=== PATIENT | female | born 1940 | race Caucasian/White ===

== ENCOUNTER 2020-11-21 12:01 | Observation (INO) | payer MEDICARE ==
--- NOTE | 2020-11-21 12:37 | ED ---
General Adult HPI - General Chief complaint: Altered Mental Status Stated complaint: palpitations, confusion Time Seen by Provider: 11/21/20 12:15 Source: patient, family Mode of arrival: wheelchair Limitations: altered mental status - History of Present Illness Initial comments: Dictation was produced using [employer] dictation software. please excuse any grammatical, word or spelling errors. This patient was cared for during a federal and state declared state of emergency secondary to Covid 19 Chief Complaint: 80-year-old female brought to the emergency department by daughter for altered mental status and elevated blood pressure and tachycardia. History of Present Illness: An 80-year-old female she is accompanied by her daughter. Patient has been showing signs of mental status changes over the last 3 days that began acutely. Patient has no history of dementia. Patient does not have any significant comorbidities she does not take any daily medications except for eyedrops for cataracts. Daughter provided history present illness noted that patient has been seemingly more forgetful and not as sharp mentally. She took patient's blood pressure at home with concerns of hypertension and tachycardia. Her heart rate was as high as 117 and her blood pressure was systolics 160s. Patient does not have any history of hypertension or tachycardia. Patient notices that she feels rather unwell. She denies weakness however daughter reports that she's been seemingly weak. Patient has no pain complaints. She has no other complaints at this time. The ROS documented in this emergency department record has been reviewed and confirmed by me. Those systems with pertinent positive or negative responses have been documented in the HPI. All other systems are other negative and/or noncontributory. PHYSICAL EXAM: General Impression: Alert and oriented x3, not in acute distress HEENT: Normocephalic atraumatic, extra-ocular movements intact, pupils equal and reactive to light bilaterally, mucous membranes moist. Cardiovascular: Heart regular rate and rhythm Chest: Able to complete full sentences, no retractions, no tachypnea Abdomen: abdomen soft, non-tender, non-distended, no organomegaly Musculoskeletal: Pulses present and equal in all extremities, no peripheral edema Motor: no focal deficits noted Neurological: CN II-XII grossly intact, no focal motor or sensory deficits noted, NIH of 0, alert and oriented 4 out of 4, no extremity drift Skin: Intact with no visualized rashes Psych: Normal affect and mood ED course: 80 y old female presents with altered mental status all signs upon arrival shows heart rate of 110, so vital signs within acceptable limits. Patient has no focal neurologic deficits on physical examination. NIH is 0. Laboratory evaluation obtained. CBC, coag panel, metabolic panel is unremarkable. Urinalysis does not shows 6 white blood cells. Troponin is elevated 0.052. Patient reevaluated at bedside at 3:10 PM she is found to be in stable medical condition. She is comfortable appearing. This point is unclear what is causing patient's elevated troponin. She does not have any signs of acute kidney injury. She has no objective findings of infection. She'll be admitted for serial troponins cartilage consultation. Case discussed with Dr. Huynh who is willing to accept patients care behalf of [facility]. EKG interpretation: Ventricular rate 93, sinus rhythm,. 156, QRS 84, QTC 402. No NH prolongation, no QTC prolongation, no ST or T-wave changes noted. No old EKG for comparison. Overall, this EKG is unremarkable - Related Data Home Medications Medication Instructions Recorded Confirmed Cholecalciferol [Vitamin D3 (25 50 mcg PO DAILY 11/21/20 11/21/20 Mcg = 1000 Iu)] Ketorolac 0.5% Ophth Soln [Acular] 1 drop LEFT EYE BID 11/21/20 11/21/20 Loteprednol Etabonate [Inveltys] 1 drop LEFT EYE BID 11/21/20 11/21/20 Propylene Glycol/Peg 400/Pf 1 drop BOTH EYES BID PRN 11/21/20 11/21/20 [Systane 0.3-0.4% Eye Drops] Vitamin B Complex 1 cap PO DAILY 11/21/20 11/21/20 hydrOXYzine HCL [Atarax] 25 mg PO BID PRN 11/21/20 11/21/20 Allergies Allergy/AdvReac Type Severity Reaction Status Date / Time No Known Allergies Allergy Verified 11/21/20 13:32 Review of Systems ROS Statement: Those systems with pertinent positive or pertinent negative responses have been documented in the HPI. ROS Other: All systems not noted in ROS Statement are negative. Past Medical History Past Medical History: No Reported History History of Any Multi-Drug Resistant Organisms: None Reported Past Surgical History: Hysterectomy, Orthopedic Surgery, Tubal Ligation Past Psychological History: No Psychological Hx Reported Smoking Status: Former smoker Past Alcohol Use History: None Reported Past Drug Use History: None Reported General Exam Limitations: altered mental status Course Vital Signs 11/21/20 11/21/20 12:06 13:51 Temperature 98.2 F Pulse Rate 110 H 83 Respiratory 20 16 Rate Blood Pressure 158/87 143/92 O2 Sat by Pulse 96 93 L Oximetry Medical Decision Making - Lab Data Result diagrams: 11/21/20 12:35 11/21/20 12:35 Lab Results 11/21/20 11/21/20 11/21/20 Range/Units 12:35 12:35 12:35 WBC 9.2 (3.8-10.6) k/uL RBC 5.77 H (3.80-5.40) m/uL Hgb 17.9 H (11.4-16.0) gm/dL Hct 54.1 H (34.0-46.0) % MCV 93.7 (80.0-100.0) fL MCH 31.1 (25.0-35.0) pg MCHC 33.2 (31.0-37.0) g/dL RDW 13.7 (11.5-15.5) % Plt Count 244 (150-450) k/uL MPV 7.6 Neutrophils % 83 % Lymphocytes % 10 % Monocytes % 5 % Eosinophils % 1 % Basophils % 0 % Neutrophils # 7.6 (1.3-7.7) k/uL Lymphocytes # 0.9 L (1.0-4.8) k/uL Monocytes # 0.5 (0-1.0) k/uL Eosinophils # 0.0 (0-0.7) k/uL Basophils # 0.0 (0-0.2) k/uL PT 10.5 (9.0-12.0) sec INR 1.0 (<1.2) APTT 22.1 (22.0-30.0) sec Sodium 139 (137-145) mmol/L Potassium 3.8 (3.5-5.1) mmol/L Chloride 108 H (98-107) mmol/L Carbon Dioxide 23 (22-30) mmol/L Anion Gap 8 mmol/L BUN 14 (7-17) mg/dL Creatinine 0.72 (0.52-1.04) mg/dL Est GFR (CKD-EPI)AfAm >90 (>60 ml/min/1.73 sqM) Est GFR (CKD-EPI)NonAf 80 (>60 ml/min/1.73 sqM) Glucose 147 H (74-99) mg/dL Calcium 10.6 H (8.4-10.2) mg/dL Magnesium 2.1 (1.6-2.3) mg/dL Total Bilirubin 1.4 H (0.2-1.3) mg/dL AST 29 (14-36) U/L ALT 25 (4-34) U/L Alkaline Phosphatase 114 (38-126) U/L Troponin I (0.000-0.034) ng/mL Total Protein 6.9 (6.3-8.2) g/dL Albumin 4.3 (3.5-5.0) g/dL TSH 1.010 (0.465-4.680) mIU/L Urine Color Urine Appearance (Clear) Urine pH (5.0-8.0) Ur Specific Gonzales (1.001-1.035) Urine Protein (Negative) Urine Glucose (UA) (Negative) Urine Ketones (Negative) Urine Blood (Negative) Urine Nitrite (Negative) Urine Bilirubin (Negative) Urine Urobilinogen (<2.0) mg/dL Ur Leukocyte Esterase (Negative) Urine RBC (0-5) /hpf Urine WBC (0-5) /hpf Ur Squamous Epith Cells (0-4) /hpf Urine Bacteria (None) /hpf Hyaline Casts (0-2) /lpf Urine Mucus (None) /hpf 11/21/20 11/21/20 Range/Units 12:35 12:35 WBC (3.8-10.6) k/uL RBC (3.80-5.40) m/uL Hgb (11.4-16.0) gm/dL Hct (34.0-46.0) % MCV (80.0-100.0) fL MCH (25.0-35.0) pg MCHC (31.0-37.0) g/dL RDW (11.5-15.5) % Plt Count (150-450) k/uL MPV Neutrophils % % Lymphocytes % % Monocytes % % Eosinophils % % Basophils % % Neutrophils # (1.3-7.7) k/uL Lymphocytes # (1.0-4.8) k/uL Monocytes # (0-1.0) k/uL Eosinophils # (0-0.7) k/uL Basophils # (0-0.2) k/uL PT (9.0-12.0) sec INR (<1.2) APTT (22.0-30.0) sec Sodium (137-145) mmol/L Potassium (3.5-5.1) mmol/L Chloride (98-107) mmol/L Carbon Dioxide (22-30) mmol/L Anion Gap mmol/L BUN (7-17) mg/dL Creatinine (0.52-1.04) mg/dL Est GFR (CKD-EPI)AfAm (>60 ml/min/1.73 sqM) Est GFR (CKD-EPI)NonAf (>60 ml/min/1.73 sqM) Glucose (74-99) mg/dL Calcium (8.4-10.2) mg/dL Magnesium (1.6-2.3) mg/dL Total Bilirubin (0.2-1.3) mg/dL AST (14-36) U/L ALT (4-34) U/L Alkaline Phosphatase (38-126) U/L Troponin I 0.052 H* (0.000-0.034) ng/mL Total Protein (6.3-8.2) g/dL Albumin (3.5-5.0) g/dL TSH (0.465-4.680) mIU/L Urine Color Yellow Urine Appearance Clear (Clear) Urine pH 6.5 (5.0-8.0) Ur Specific Gonzales 1.014 (1.001-1.035) Urine Protein Trace H (Negative) Urine Glucose (UA) Negative (Negative) Urine Ketones 1+ H (Negative) Urine Blood Negative (Negative) Urine Nitrite Negative (Negative) Urine Bilirubin Negative (Negative) Urine Urobilinogen 3.0 (<2.0) mg/dL Ur Leukocyte Esterase Trace H (Negative) Urine RBC 1 (0-5) /hpf Urine WBC 6 H (0-5) /hpf Ur Squamous Epith Cells 2 (0-4) /hpf Urine Bacteria Many H (None) /hpf Hyaline Casts 81 H (0-2) /lpf Urine Mucus Occasional H (None) /hpf Disposition Clinical Impression: Elevated troponin Disposition: ADMITTED IP TO THIS HOSP Condition: Fair Referrals: Kindsvater,Nano, MD [Primary Care Provider] - 1-2 days Decision Time: 15:13
[2020-11-21 12:52] LABS: Basophils % (A) 0 %; Eosinophils % (A) 1 %; HCT 54.1 % (34.0-46.0); HGB 17.9 gm/dL (11.4-16.0); Lymphocytes # (A) 0.9 k/uL (1.0-4.8); Lymphocytes % (A) 10 %; MCH 31.1 pg (25.0-35.0); MCHC 33.2 g/dL (31.0-37.0); MCV 93.7 fL (80.0-100.0); Mean Platelet Volume 7.6; Monocytes # (A) 0.5 k/uL (0-1.0); Monocytes % (A) 5 %; Neutrophils # (A) 7.6 k/uL (1.3-7.7); Neutrophils % (A) 83 %; Platelet Count 244 k/uL (150-450); RBC 5.77 m/uL (3.80-5.40); RDW 13.7 % (11.5-15.5); WBC 9.2 k/uL (3.8-10.6)
--- NOTE | 2020-11-21 13:06 | XR ---
EXAMINATION TYPE: XR chest 1V portable DATE OF EXAM: 11/21/2020 COMPARISON: NONE HISTORY: Shortness of breath TECHNIQUE: Frontal view of the chest are obtained. FINDINGS: Scattered senescent parenchymal changes noted. Hyperinflation compatible with COPD. No evidence for infiltrate. No evidence for atelectasis. Heart size is stable. Mediastinal structures are stable and grossly unremarkable. No evidence for hilar prominence. Degenerative changes dorsal spine. IMPRESSION: 1. No evidence for acute pulmonary disease.
--- NOTE | 2020-11-21 13:09 | CT ---
EXAMINATION TYPE: CT brain wo con DATE OF EXAM: 11/21/2020 COMPARISON: None HISTORY: Altered mental status CT DLP: 1072.[address] of the brain was performed. The ventricles, basal cisterns and sulci overlying the cerebral convexities demonstrate mild enlargem ent. There is no evidence for intracranial hemorrhage or sulcal effacement. There is decreased attenuation about the periventricular white matter and deep white matter of both c erebral hemispheres, compatible with chronic small vessel ischemia. Differential diagnosis does inclu de demyelination. No mass effects are seen.No midline shift. Osseous calvarium is intact. If symptoms persist consider MRI. IMPRESSION: 1. Age related atrophic and chronic small vessel ischemic change without acute intracranial process s een at this time.
[2020-11-21 13:14] LABS: ALT 25 U/L (4-34); AST 29 U/L (14-36); African American GFR (CKD) >90 (>60 ml/min/1.73 sqM); Albumin 4.3 g/dL (3.5-5.0); Alkaline Phosphatase 114 U/L (38-126); Anion Gap 8 mmol/L; Blood Urea Nitrogen 14 mg/dL (7-17); Calcium 10.6 mg/dL (8.4-10.2); Carbon Dioxide 23 mmol/L (22-30); Chloride 108 mmol/L (98-107); Glucose 147 mg/dL (74-99); Magnesium 2.1 mg/dL (1.6-2.3); Non-African American GFR(CKD) 80 (>60 ml/min/1.73 sqM); Potassium 3.8 mmol/L (3.5-5.1); Sodium 139 mmol/L (137-145); Total Bilirubin 1.4 mg/dL (0.2-1.3); Total Protein 6.9 g/dL (6.3-8.2)
[2020-11-21 13:17] LABS: Partial Thromboplastin Time 22.1 sec (22.0-30.0); Prothrombin Time 10.5 sec (9.0-12.0)
[2020-11-21 14:56] LABS: Appearance,Urine Clear (Clear); Bacteria,Urine Many /hpf; Bilirubin,Urine Negative (Negative); Blood,Urine Negative (Negative); Color,Urine Yellow; Glucose,Urine (UA) Negative (Negative); Hyaline Casts,Urine 81 /lpf (0-2); Ketones,Urine 1+ (Negative); Leukocyte Esterase,Urine Trace (Negative); Mucus,Urine Occasional /hpf; Nitrite,Urine Negative (Negative); PH, Urine 6.5 (5.0-8.0); Protein,Urine Trace (Negative); RBC,Urine 1 /hpf (0-5); Specific Gravity,Urine 1.014 (1.001-1.035); Squamous Epithelial Cell,Urine 2 /hpf (0-4); WBC,Urine 6 /hpf (0-5)
[2020-11-21] MEDS ORDERED: DOCUSATE 100 MG CAP PO PRN (15:01)
[2020-11-21] MEDS ORDERED: NALOXONE 0.4 MG/ML 1 ML VIAL IV PRN (15:01)
[2020-11-21] MEDS ORDERED: bisacodyL 5 MG TABLET.DR PO PRN (15:01)
[2020-11-21] MEDS ORDERED: ACETAMINOPHEN TAB 325 MG TAB PO PRN (15:01)
[2020-11-21] MEDS ORDERED: HEPARIN SODIUM 1,000 UN/ML (10ML VL) IV ONE (15:06)
[2020-11-21] MEDS ORDERED: HEPARIN SODIUM 1,000 UN/ML (10ML VL) IV PRN (15:06)
[2020-11-21] MEDS ORDERED: NITROGLYCERIN SL TABS 0.4 MG TAB SUBLINGUAL PRN (15:09)
[2020-11-21] MEDS ORDERED: ASPIRIN 81 MG PO STA (15:09)
[2020-11-21] MEDS ORDERED: HEPARIN SOD,PORK IN 0.45% NACL 25,000 UNIT in 0.45% NACL 1 250ML.BAG IV SCH ×2 (15:15→23:30)
[2020-11-21] MEDS ORDERED: HEPARIN SODIUM,PORCINE/PF 5,000 UNIT/0.5 ML SYRINGE SQ SCH (16:00)
[2020-11-21] MEDS ORDERED: IPRATROPIUM-ALBUTEROL 3 ML NEB INHALATION PRN (18:31)
--- NOTE | 2020-11-21 18:32 | P.HPIM ---
History of Present Illness H&P Date: 11/21/20 Chief Complaint: Hypotension, altered mental status, elevated troponin 80-year-old woman who does not follow with a DrSrinivasa regularly, with unknown medical history, presented with confusion and elevated blood pressure and tachycardia. Patient presents with her daughter, who provides the majority of history. From my understanding, patient has been more confused lately, especially in the last 3-4 days. She tends to get more short of breath on exertion, develops swelling in her lower legs. Patient was concerned about her mother as a consequence of high blood pressure and high heart rate with a peak of 168 systolic, therefore, patient presented to the emergency room for further evaluation. Patient was originally going to see an outpatient physician for a routine appointment, however, due to the elevated blood pressure, patient reported to the hospital instead. In the emergency room, patient is noted to have an elevated blood pressure of 158/87 and is tachycardic to 110. CBC is notable for polycythemia to 17.9. BMP, LFTs, TSH are all within normal limits. Troponin was mildly elevated 0.05. Patient was also noted to have a urinary tract infection with many hyaline casts. Influenza A/B, RSV, Covid antigen tests were all negative. Chest x-ray demonstrates hyperinflation compatible with COPD but no acute pulmonary disease. EKG demonstrates normal sinus rhythm with left axis deviation as well as nonconducting PACs, no ischemic changes. Review of Systems All Systems reviewed and pertinent positives and negatives noted in HPI, all other symptoms are negative Past Medical History Past Medical History: No Reported History History of Any Multi-Drug Resistant Organisms: None Reported Past Surgical History: Hysterectomy, Orthopedic Surgery, Tubal Ligation Past Psychological History: No Psychological Hx Reported Smoking Status: Former smoker Past Alcohol Use History: None Reported Past Drug Use History: None Reported Medications and Allergies Home Medications Medication Instructions Recorded Confirmed Type Cholecalciferol [Vitamin D3 (25 50 mcg PO DAILY 11/21/20 11/21/20 History Mcg = 1000 Iu)] Ketorolac 0.5% Ophth Soln [Acular] 1 drop LEFT EYE BID 11/21/20 11/21/20 History Loteprednol Etabonate [Inveltys] 1 drop LEFT EYE BID 11/21/20 11/21/20 History Propylene Glycol/Peg 400/Pf 1 drop BOTH EYES BID PRN 11/21/20 11/21/20 History [Systane 0.3-0.4% Eye Drops] Vitamin B Complex 1 cap PO DAILY 11/21/20 11/21/20 History hydrOXYzine HCL [Atarax] 25 mg PO BID PRN 11/21/20 11/21/20 History Allergies Allergy/AdvReac Type Severity Reaction Status Date / Time No Known Allergies Allergy Verified 11/21/20 13:32 Physical Exam Osteopathic Statement: *. No significant issues noted on an osteopathic structural exam other than those noted in the History and Physical/Consult. Vitals: Vital Signs Temp Pulse Resp BP Pulse Ox 11/21/20 17:50 97 18 146/68 97 11/21/20 13:51 83 16 143/92 93 L 11/21/20 12:06 98.2 F 110 H 20 158/87 96 Intake and Output 11/21/20 11/21/20 11/21/20 06:59 14:59 22:59 Other: Weight 90.718 kg Gen: awake, alert HEENT: normocephalic, atraumatic, good hearing acuity, moist mucous membranes Resp: good air exchange, breathing comfortably with no accessory muscle use, clear to auscultation bilaterally without wheezes CVS: good distal perfusion x 4, irregular rhythm, regular rate without murmurs GI: soft, NTTP, ND, appropriate bowel sounds : no SPT, no CVAT, childress catheter not present MSK: Trace pitting edema, no clubbing Neuro: non-focal, moving all extremities Psych: cooperative, euthymic mood Results CBC & Chem 7: 11/21/20 12:35 11/21/20 12:35 Labs: Abnormal Lab Results - Last 24 Hours (Table) 11/21/20 11/21/20 11/21/20 Range/Units 12:35 12:35 12:35 RBC 5.77 H (3.80-5.40) m/uL Hgb 17.9 H (11.4-16.0) gm/dL Hct 54.1 H (34.0-46.0) % Lymphocytes # 0.9 L (1.0-4.8) k/uL Chloride 108 H (98-107) mmol/L Glucose 147 H (74-99) mg/dL Calcium 10.6 H (8.4-10.2) mg/dL Total Bilirubin 1.4 H (0.2-1.3) mg/dL Troponin I (0.000-0.034) ng/mL Urine Protein Trace H (Negative) Urine Ketones 1+ H (Negative) Ur Leukocyte Esterase Trace H (Negative) Urine WBC 6 H (0-5) /hpf Urine Bacteria Many H (None) /hpf Hyaline Casts 81 H (0-2) /lpf Urine Mucus Occasional H (None) /hpf 11/21/20 Range/Units 12:35 RBC (3.80-5.40) m/uL Hgb (11.4-16.0) gm/dL Hct (34.0-46.0) % Lymphocytes # (1.0-4.8) k/uL Chloride (98-107) mmol/L Glucose (74-99) mg/dL Calcium (8.4-10.2) mg/dL Total Bilirubin (0.2-1.3) mg/dL Troponin I 0.052 H* (0.000-0.034) ng/mL Urine Protein (Negative) Urine Ketones (Negative) Ur Leukocyte Esterase (Negative) Urine WBC (0-5) /hpf Urine Bacteria (None) /hpf Hyaline Casts (0-2) /lpf Urine Mucus (None) /hpf Assessment and Plan Assessment: Elevated troponin Hypertensive urgency -Admitted to telemetry -EKG/nitro when necessary for chest pain -Trend troponins -Aspirin loaded, aspirin 81 mg daily -Atorvastatin nightly -Metoprolol -We'll likely initiate amlodipine -Lipid panel, TSH, A1c in the morning -Echocardiogram, pending -Cardiology consulted by ER Suspected COPD -Rosario nebs when necessary -Outpatient PFTs -PCP to provide pulmonary referral -Nicotine cessation counseling Patient is DO NOT RESUSCITATE/DO NOT INTUBATE is next of kin DVT prophylaxis with heparin 3 times a day
[2020-11-21] MEDS ORDERED: ATORVASTATIN 80 MG TAB PO SCH (21:00)
[2020-11-21] MEDS: METOPROLOL TARTRATE 12.5 MG TAB PO SCH (21:29)
[2020-11-22 05:50] LABS: Basophils % (A) 0 %; Eosinophils % (A) 0 %; HGB 16.7 gm/dL (11.4-16.0); Lymphocytes % (A) 14 %; MCH 31.8 pg (25.0-35.0); MCHC 34.1 g/dL (31.0-37.0); MCV 93.5 fL (80.0-100.0); Mean Platelet Volume 7.2; Monocytes # (A) 0.5 k/uL (0-1.0); Monocytes % (A) 6 %; Neutrophils # (A) 5.6 k/uL (1.3-7.7); Neutrophils % (A) 77 %; Platelet Count 212 k/uL (150-450); RBC 5.24 m/uL (3.80-5.40); RDW 13.2 % (11.5-15.5); WBC 7.3 k/uL (3.8-10.6)
[2020-11-22 05:53] LABS: African American GFR (CKD) >90 (>60 ml/min/1.73 sqM); Anion Gap 5 mmol/L; Blood Urea Nitrogen 11 mg/dL (7-17); Calcium 9.5 mg/dL (8.4-10.2); Carbon Dioxide 28 mmol/L (22-30); Chloride 108 mmol/L (98-107); Cholesterol 157 mg/dL (<200); Glucose 121 mg/dL (74-99); HDL Cholesterol 43 mg/dL (40-60); LDL Cholesterol,Calculated 94 mg/dL (0-99); Magnesium 2.2 mg/dL (1.6-2.3); Non-African American GFR(CKD) 83 (>60 ml/min/1.73 sqM); Potassium 3.5 mmol/L (3.5-5.1); Sodium 141 mmol/L (137-145); Triglycerides 102 mg/dL (<150)
--- NOTE | 2020-11-22 07:16 | ECHOF ---
Referral Reason:Elevated troponin MEASUREMENTS -------- HEIGHT: 162.6 cm WEIGHT: 90.7 kg BP: RVIDd: 2.2 cm (< 3.3) IVSd: 2.0 cm (0.6 - 1.1) LVIDd: 2.8 cm (3.9 - 5.3) LVPWd: 1.8 cm (0.6 - 1.1) IVSs: 2.0 cm LVIDs: 2.0 cm LVPWs: 1.8 cm Ao Diam: 3.2 cm (2.0 - 3.7) AV Cusp: 2.1 cm (1.5 - 2.6) LA Diam: 3.3 cm (2.7 - 3.8) MV EXCURSION: 10.065 mm (> 18.000) MV EF SLOPE: 33 mm/s (70 - 150) EPSS: 0.5 cm MV E Scott: 0.46 m/s MV DecT: 212 ms MV A Scott: 0.53 m/s MV E/A Ratio: 0.86 RAP: 5.00 mmHg RVSP: 11.24 mmHg FINDINGS -------- Sinus rhythm. This was a technically difficult study with suboptimal views. The left ventricular size is normal. There is severe concentric left ventricular hypertrophy. Ove rall left ventricular systolic function is normal with, an EF between 55 - 60 %. The right ventricle is normal in size. The left atrial size is normal. The right atrial size is normal. 5.0mg of Lumason was utilized for enhancement of images The aortic valve is trileaflet, and appears structurally normal. No aortic stenosis or regurgitation. The mitral valve is normal. There is trace to mild mitral regurgitation. The tricuspid valve appears structurally normal. Trace tricuspid regurgitation present. Right shannan tricular systolic pressure is normal at < 35 mmHg. Trace/mild (physiologic) pulmonic regurgitation. The aortic root size is normal. IVC Not well visulized. Echo free space may represent effusion or a pericardial fat pad. CONCLUSIONS -------- 1. This was a technically difficult study with suboptimal views. 2. There is severe concentric left ventricular hypertrophy. 3. Overall left ventricular systolic function is normal with, an EF between 55 - 60 %. 4. The left atrial size is normal. 5. The aortic valve is trileaflet, and appears structurally normal. No aortic stenosis or regurgitati on. 6. There is trace to mild mitral regurgitation. 7. Trace tricuspid regurgitation present. 8. Trace/mild (physiologic) pulmonic regurgitation. BULKER: Estefania Razo RDCS
[2020-11-22] MEDS ORDERED: HEPARIN SODIUM 1,000 UN/ML (10ML VL) IV PRN (08:56)
[2020-11-22] MEDS ORDERED: HEPARIN SOD,PORK IN 0.45% NACL 25,000 UNIT in 0.45% NACL 1 250ML.BAG IV SCH (09:00)
[2020-11-22] MEDS ORDERED: ASPIRIN 81 MG PO SCH (09:00)
[2020-11-22] MEDS ORDERED: ASPIRIN 325 MG TAB PO SCH (09:00)
[2020-11-22] MEDS: METOPROLOL TARTRATE 12.5 MG TAB PO SCH (09:35)
--- NOTE | 2020-11-22 13:19 | P.CRDCN ---
History of Present Illness History of present illness: HISTORY OF PRESENTING ILLNESS This is a pleasant 80-year-old female past medical history significant for hypertension, hyperlipidemia, former smoker. Patient does not follow with a driver's license reviewing officer. We have been asked to see in consultation for elevated troponin. Patient is seen and examined in the emergency department. Daughter at bedside. Patient presents emergency department with altered mental status, elevated blood pressures and tachycardia. Per patient's time patient has been confused over the past 3-4 days and is having shortness of breath on exertion. States her blood pressure was elevated peak systolic in the 160s. On exam patient denies chest pain, palpitations, shortness of breath, lightheadedness, syncope. Patient denies history of Diabetes, Stroke, CA. Patients states she is compliant with medication. Current home cardiac medications include atorvastatin 40 mg nigh tly, Lopressor 12.5 mg twice a day. Currently on telemetry she is in sinus mechanism HR 70s DIAGNOSTICS EKG reveals sinus rhythm, heart rate 90s, with blocked premature atrial complexes, T wave inversion in leads EKG at 1123PM patient with episode of atrial flutter HR 57. No prior EKGs to compare Telemetry tracings reviewed, episode of atrial flutter overnight HR 50-60s, currently in sinus mechanism HR 70-80s Chest xray hyperinflation compatible with COPD, scattered parenchymal changes noted. no acute pulmonary disease. Brain CT- age-related atrophic and chronic small vessel ischemic change without any acute intracranial process Laboratory reviewed, UA consistent with UTI, WBC 7.3, hemoglobin 16.7, platelets 212, sodium 141, potassium 3.5, serum creatinine 0.67, BUN/creatinine 11, TSH within normal limit. viral PCR negative, covid-19 negative REVIEW OF SYSTEMS At the time of my exam: CONSTITUTIONAL: Denies fever or chills. CARDIOVASCULAR: Denies chest pain, shortness of breath, orthopnea, PND or palpitations. RESPIRATORY: Denies cough. GASTROINTESTINAL: Denies abdominal pain, diarrhea, constipation, nausea or vomiting. MUSCULOSKELETAL: Denies myalgias. NEUROLOGIC: Denies numbness, tingling, headacbe or weakness. ENDOCRINE: Denies fatigue, weight change, polydipsia or polyurina. GENITOURINARY: Denies burning, hematuria or urgency with micturation. HEMATOLOGIC: Denies history of anemia or bleeding. PHYSICAL EXAMINATION Bp 122/66 HR 93, afebrile, maintaining oxygen saturations on room air CONSTITUTIONAL: No apparent distress. HEENT: Head is normocephalic. Pupils are equal, round. Sclerae anicteric. Mucous membranes of the mouth are moist. No JVD. No carotid bruit. CHEST EXAMINATION: Lungs are clear to auscultation. No chest wall tenderness is noted on palpation or with deep breathing. HEART EXAMINATION: Regular rate and rhythm. S1, S2 heard. No murmurs, gallops or rub. ABDOMEN: Soft, nontender. Positive bowel sounds. EXTREMITIES: 2+ peripheral pulses, no lower extremity edema and no calf tenderness. SKIN: intact NEUROLOGIC EXAMINATION: Patient is awake, alert and oriented x2 ASSESSMENT Mildly elevated troponin- due not believe acute coronary syndrome at this time Shortness of breath New onset atrial flutter, maintaining sinus mechanism Urinary Tract Infection History of Hypertension History of hyperlipidemia PLAN Continue heparin drip Continue cardiac desk monitor if patient has further episodes of atrial flutter Continue home medications: metoprolol tartrate 12.5mg BID and atorvastatin 40mg nightly. Nurse Practitioner note has been reviewed, I agree with a documented findings and plan of care. Patient was seen and examined. Past Medical History Past Medical History: No Reported History, Hyperlipidemia, Hypertension History of Any Multi-Drug Resistant Organisms: None Reported Past Surgical History: Hysterectomy, Orthopedic Surgery, Tubal Ligation Past Psychological History: No Psychological Hx Reported Smoking Status: Former smoker Past Alcohol Use History: None Reported Past Drug Use History: None Reported Medications and Allergies Home Medications Medication Instructions Recorded Confirmed Type Cholecalciferol [Vitamin D3 (25 50 mcg PO DAILY 11/21/20 11/21/20 History Mcg = 1000 Iu)] Ketorolac 0.5% Ophth Soln [Acular 1 drop LEFT EYE BID 11/21/20 11/21/20 History 0.5%] Loteprednol Etabonate [Inveltys] 1 drop LEFT EYE BID 11/21/20 11/21/20 History Propylene Glycol/Peg 400/Pf 1 drop BOTH EYES BID PRN 11/21/20 11/21/20 History [Systane 0.3-0.4% Eye Drop] Vitamin B Complex 1 cap PO DAILY 11/21/20 11/21/20 History hydrOXYzine HCL [Atarax] 25 mg PO BID PRN 11/21/20 11/21/20 History Atorvastatin [Lipitor] 40 mg PO HS #15 tab 11/22/20 Rx Metoprolol Tartrate [Lopressor] 12.5 mg PO BID #60 tab 11/22/20 Rx Allergies Allergy/AdvReac Type Severity Reaction Status Date / Time No Known Allergies Allergy Verified 11/21/20 13:32 Physical Exam Vitals: Vital Signs Temp Pulse Pulse Resp BP BP Pulse Ox 11/22/20 04:00 97.9 F 66 18 130/87 94 L 11/22/20 01:02 68 18 11/22/20 00:00 97.6 F 68 18 148/89 96 11/21/20 20:00 98.0 F 84 18 131/90 95 11/21/20 17:50 97 18 146/68 97 11/21/20 13:51 83 16 143/92 93 L 11/21/20 12:06 98.2 F 110 H 20 158/87 96 Intake and Output 11/21/20 11/21/20 11/22/20 14:59 22:59 06:59 Intake Total 70.833 Balance 70.833 Intake: IV 10 0.9 10 Intake, IV Titration 60.833 Amount Heparin Sod,Pork in 0.45% 60.833 NaCl 25,000 unit In 0.45 % NaCl 1 250ml.bag @ 11. 023 UNITS/KG/HR 10 mls/hr IV .Q24H [facility] Rx#: [id number] Other: Voiding Method Toilet Toilet # Voids 1 Weight 90.718 kg 90.718 kg Results 11/22/20 05:08 11/22/20 05:08 Cardiac Enzymes 11/21/20 11/21/20 11/21/20 Range/Units 12:35 12:35 17:49 AST 29 (14-36) U/L Troponin I 0.052 H* 0.057 H* (0.000-0.034) ng/mL 11/21/20 Range/Units 20:56 AST (14-36) U/L Troponin I 0.064 H* (0.000-0.034) ng/mL Coagulation 11/21/20 11/22/20 Range/Units 12:35 05:08 PT 10.5 (9.0-12.0) sec APTT 22.1 50.6 H (22.0-30.0) sec Lipids 11/22/20 Range/Units 05:08 Triglycerides 102 (<150) mg/dL Cholesterol 157 (<200) mg/dL HDL Cholesterol 43 (40-60) mg/dL CBC 11/21/20 11/22/20 Range/Units 12:35 05:08 WBC 9.2 7.3 (3.8-10.6) k/uL RBC 5.77 H 5.24 (3.80-5.40) m/uL Hgb 17.9 H 16.7 H (11.4-16.0) gm/dL Hct 54.1 H 49.0 H (34.0-46.0) % Plt Count 244 212 (150-450) k/uL Comprehensive Metabolic Panel 11/21/20 11/22/20 Range/Units 12:35 05:08 Sodium 139 141 (137-145) mmol/L Potassium 3.8 3.5 (3.5-5.1) mmol/L Chloride 108 H 108 H (98-107) mmol/L Carbon Dioxide 23 28 (22-30) mmol/L BUN 14 11 (7-17) mg/dL Creatinine 0.72 0.67 (0.52-1.04) mg/dL Glucose 147 H 121 H (74-99) mg/dL Calcium 10.6 H 9.5 (8.4-10.2) mg/dL AST 29 (14-36) U/L ALT 25 (4-34) U/L Alkaline Phosphatase 114 (38-126) U/L Total Protein 6.9 (6.3-8.2) g/dL Albumin 4.3 (3.5-5.0) g/dL Current Medications Generic Name Dose Route Start Last Admin Trade Name Freq PRN Reason Stop Dose Admin Acetaminophen 650 mg 11/21/20 15:01 Acetaminophen Tab 325 Mg Tab PO Q6HR PRN Mild Pain or Fever > 100.5 Albuterol/Ipratropium 3 ml 11/21/20 18:31 Ipratropium-Albuterol 3 Ml Neb INHALATION RT-QID PRN Shortness Of Breath Or Wheezing Aspirin 81 mg 11/22/20 09:00 Aspirin 81 Mg PO DAILY TIMI Atorvastatin Calcium 80 mg 11/21/20 21:00 04/26/21 21:29 Atorvastatin 80 Mg Tab PO 80 mg HS TIMI Administration Bisacodyl 5 mg 11/21/20 15:01 Bisacodyl 5 Mg Tablet.Dr PO DAILY PRN Constipation Docusate Sodium 100 mg 11/21/20 15:01 Docusate 100 Mg Cap PO BID PRN Constipation Heparin Sodium/Sodium Chloride 250 mls @ 10 mls/hr 11/21/20 23:30 11/22/20 06:00 25,000 unit/ Sodium Chloride IV 11.023 units/kg/hr .Q24H TIMI 10 mls/hr Titration Protocol 11.023 UNITS/KG/HR Metoprolol Tartrate 12.5 mg 11/21/20 21:00 11/21/20 21:29 Metoprolol Tartrate 12.5 Mg Tab PO 12.5 mg BID TIMI Administration Naloxone HCl 0.2 mg 11/21/20 15:01 Naloxone 0.4 Mg/Ml 1 Ml Vial IV Q2M PRN Opioid Reversal Nitroglycerin 0.4 mg 11/21/20 15:09 Nitroglycerin Sl Tabs 0.4 Mg Tab SUBLINGUAL Q5M PRN Chest Pain Intake and Output 11/21/20 11/21/20 11/22/20 14:59 22:59 06:59 Intake Total 70.833 Balance 70.833 Intake: IV 10 0.9 10 Intake, IV Titration 60.833 Amount Heparin Sod,Pork in 0.45% 60.833 NaCl 25,000 unit In 0.45 % NaCl 1 250ml.bag @ 11. 023 UNITS/KG/HR 10 mls/hr IV .Q24H [facility] Rx#: [id number] Other: Voiding Method Toilet Toilet # Voids 1 Weight 90.718 kg 90.718 kg Patient Weight 11/22/20 06:59 Weight 90.718 kg 11/22/20 05:08 11/22/20 05:08
[2020-11-22 15:23] VITALS: BP 148/78; PULSE 78; RESP 20; TEMP 98
--- NOTE | 2020-11-22 15:54 | P.DS ---
Providers Date of admission: 11/21/20 15:09 Expected date of discharge: 11/22/20 Attending physician: Jamel Huynh MD Consults: 11/21/20 15:09 Consult Physician Urgent Consulting Provider: Sayra Galvan Consult Reason/Comments: elevated troponin Do you want consulting provider notified?: Yes Primary care physician: Nano Roman MD Hospital Course: 80-year-old woman who does not follow with a Dr. regularly, with unknown medical history, presented with confusion and elevated blood pressure and tachycardia. Patient presents with her daughter, who provides the majority of history. From my understanding, patient has been more confused lately, especially in the last 3-4 days. She tends to get more short of breath on exertion, develops swelling in her lower legs. Patient was concerned about her mother as a consequence of high blood pressure and high heart rate with a peak of 168 systolic, therefore, patient presented to the emergency room for further evaluation. Patient was originally going to see an outpatient physician for a routine appointment, however, due to the elevated blood pressure, patient reported to the hospital instead. In the emergency room, patient is noted to have an elevated blood pressure of 158/87 and is tachycardic to 110. CBC is notable for polycythemia to 17.9. BMP, LFTs, TSH are all within normal limits. Troponin was mildly elevated 0.05. Patient was also noted to have a urinary tract infection with many hyaline casts. Influenza A/B, RSV, Covid antigen tests were all negative. Chest x-ray demonstrates hyperinflation compatible with COPD but no acute pulmonary disease. EKG demonstrates normal sinus rhythm with left axis deviation as well as nonconducting PACs, no ischemic changes. Atrial Flutter, paroxysmal Hypertensive urgency -Admitted to telemetry -EKG/nitro when necessary for chest pain was negative for ischemia -Trended troponins = non-specific elevation to 0.064 -Aspirin loaded, aspirin 81 mg daily --> d/c'd on discharge -Atorvastatin nightly --> prescribed on discharge at 40mg qHS -Metoprolol --> prescribed on discharge at 12.5mg tartrate BID -Lipid panel = LDL/HDL/TG - 94/43/102 - TSH = 0.922 - A1c = pending on discharge -Echocardiogram = EF of 55-60%, no WMA, no elevated RVSP, no diastolic dysfunction -Cardiology consulted by ER = agree with metoprolol atorvastatin, recommend f/u in clinic in 1-2 weeks for A Flutter Suspected COPD -DuoNeb nebs when necessary - were not needed -Outpatient PFTs recommended -PCP to provide pulmonary referral -Nicotine cessation counseling given Assessment: Gen: awake, alert HEENT: normocephalic, atraumatic, good hearing acuity, moist mucous membranes Resp: good air exchange, breathing comfortably with no accessory muscle use, clear to auscultation bilaterally without wheezes CVS: good distal perfusion x 4, irregular rhythm, regular rate without murmurs GI: soft, NTTP, ND, appropriate bowel sounds : no SPT, no CVAT, childress catheter not present MSK: Trace pitting edema, no clubbing Neuro: non-focal, moving all extremities Psych: cooperative, euthymic mood Patient Condition at Discharge: Good Plan - Discharge Summary Discharge Rx Participant: No New Discharge Prescriptions: New Atorvastatin [Lipitor] 40 mg PO HS #15 tab Metoprolol Tartrate [Lopressor] 12.5 mg PO BID #60 tab Continue Propylene Glycol/Peg 400/Pf [Systane 0.3-0.4% Eye Drop] 1 drop BOTH EYES BID PRN PRN Reason: Dry Eye(S) Cholecalciferol [Vitamin D3 (25 Mcg = 1000 Iu)] 50 mcg PO DAILY hydrOXYzine HCL [Atarax] 25 mg PO BID PRN PRN Reason: Anxiety Loteprednol Etabonate [Inveltys] 1 drop LEFT EYE BID Vitamin B Complex 1 cap PO DAILY Ketorolac 0.5% Ophth Soln [Acular 0.5%] 1 drop LEFT EYE BID Discharge Medication List Cholecalciferol [Vitamin D3 (25 Mcg = 1000 Iu)] 50 mcg PO DAILY 11/21/20 [History] Ketorolac 0.5% Ophth Soln [Acular 0.5%] 1 drop LEFT EYE BID 11/21/20 [History] Loteprednol Etabonate [Inveltys] 1 drop LEFT EYE BID 11/21/20 [History] Propylene Glycol/Peg 400/Pf [Systane 0.3-0.4% Eye Drop] 1 drop BOTH EYES BID PRN 11/21/20 [History] Vitamin B Complex 1 cap PO DAILY 11/21/20 [History] hydrOXYzine HCL [Atarax] 25 mg PO BID PRN 11/21/20 [History] Atorvastatin [Lipitor] 40 mg PO HS #15 tab 11/22/20 [Rx] Metoprolol Tartrate [Lopressor] 12.5 mg PO BID #60 tab 11/22/20 [Rx] Follow up Appointment(s)/Referral(s): [facility], [NON-STAFF] - 1-2 Days Nano Roman MD [Primary Care Provider] - 1-2 days Julián Crandall MD [STAFF PHYSICIAN] - 2 Weeks Patient Instructions/Handouts: Chest Pain (DC)
[2020-11-22 17:31] LABS: Hemoglobin A1C 5.4 % (4.0-6.0)
[2020-11-22] MEDS ORDERED: ATORVASTATIN 40 MG TAB PO SCH (21:00)
== END 2020-11-22 15:45 | disposition home health service (06) ==
LOC: EC 12:01 → 3SCARD 15:09 → UNDODISOB 11-22 12:04 → 3SCARD 11-22 12:38
PROVIDERS: ADMIT Internal Medicine; ATTEND Internal Medicine
DX: I48.92 Unspecified atrial flutter (principal); I16.0 Hypertensive urgency; N39.0 Urinary tract infection, site not specified; I10 Essential (primary) hypertension; E78.5 Hyperlipidemia, unspecified; R79.89 Other specified abnormal findings of blood chemistry; H26.9 Unspecified cataract; I67.82 Cerebral ischemia; R91.8 Other nonspecific abnormal finding of lung field; D75.1 Secondary polycythemia; Z20.822 Contact with and (suspected) exposure to COVID-19; Z79.899 Other long term (current) drug therapy; Z98.51 Tubal ligation status; Z90.710 Acquired absence of both cervix and uterus; Z98.890 Other specified postprocedural states; Z87.891 Personal history of nicotine dependence; Z66 Do not resuscitate
CPT/HCPCS: 93005 ×2; 96365; 96366; 96367; 96372; 99285; 36415; 80061; 80053; 80048; 84443 ×2; 83735 ×2; 84484; 85025 ×2; 85610; 85730 ×2; 81001; 83036; 87636; 71045; 70450; G0378 ×2; C8929; J0696; Q9950; J1644 ×2; 93306

== ENCOUNTER 2020-12-03 21:10 | Observation (INO) | payer MEDICARE ==
[2020-12-03 22:07] LABS: Basophils % (A) 0 %; Eosinophils # (A) 0.1 k/uL (0-0.7); Eosinophils % (A) 1 %; HCT 49.5 % (34.0-46.0); HGB 17.2 gm/dL (11.4-16.0); Lymphocytes # (A) 0.9 k/uL (1.0-4.8); Lymphocytes % (A) 12 %; MCHC 34.8 g/dL (31.0-37.0); MCV 91.9 fL (80.0-100.0); Mean Platelet Volume 7.2; Monocytes # (A) 0.6 k/uL (0-1.0); Monocytes % (A) 7 %; Neutrophils % (A) 77 %; Platelet Count 210 k/uL (150-450); RBC 5.39 m/uL (3.80-5.40); RDW 13.1 % (11.5-15.5); WBC 7.7 k/uL (3.8-10.6)
[2020-12-03 22:19] LABS: Partial Thromboplastin Time 23.2 sec (22.0-30.0); Potassium 3.5 mmol/L (3.5-5.1); Prothrombin Time 10.5 sec (9.0-12.0)
--- NOTE | 2020-12-03 22:19 | ED ---
Weakness HPI - General Chief complaint: Weakness Stated complaint: tremors Source: patient Mode of arrival: wheelchair Limitations: no limitations - History of Present Illness Initial comments: Patient is an 80-year-old female who presents emergency Department with reported change in her mental status. Daughter is at bedside and helps provide the history. 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 She states that over the past month she has gotten progressively worse. Patient was just recently hospitalized and found to have A. fib. She also had an elevated troponin. Patient started on some medications due to these conditions. Previous to this patient had no medical problems other than glaucoma. Since the patient has been discharged the outer states that the patient has gotten progressively worse. She has extensive tremors in her right upper extremity to the point where "the patient is hitting herself in the face". These appear to be when the patient is at rest. She can no longer drive, control her medications or fiances. The patient becomes easily aggressive and worked up. No reported trauma or head injuries. No fevers or chills. Patient recently treated for urinary tract infection however daughter states she continues to have a decline. Recent CT of the head was negative. No other alleviating, precipitating or modifying factors - Related Data Home Medications Medication Instructions Recorded Confirmed Cholecalciferol [Vitamin D3 (25 50 mcg PO DAILY 11/21/20 11/21/20 Mcg = 1000 Iu)] Ketorolac 0.5% Ophth Soln [Acular 1 drop LEFT EYE BID 11/21/20 11/21/20 0.5%] Loteprednol Etabonate [Inveltys] 1 drop LEFT EYE BID 11/21/20 11/21/20 Propylene Glycol/Peg 400/Pf 1 drop BOTH EYES BID PRN 11/21/20 11/21/20 [Systane 0.3-0.4% Eye Drop] Vitamin B Complex 1 cap PO DAILY 11/21/20 11/21/20 hydrOXYzine HCL [Atarax] 25 mg PO BID PRN 11/21/20 11/21/20 Previous Rx's Medication Instructions Recorded Atorvastatin [Lipitor] 40 mg PO HS #15 tab 11/22/20 Metoprolol Tartrate [Lopressor] 12.5 mg PO BID #60 tab 11/22/20 Allergies Allergy/AdvReac Type Severity Reaction Status Date / Time No Known Allergies Allergy Verified 12/03/20 21:15 Review of Systems ROS Statement: Those systems with pertinent positive or pertinent negative responses have been documented in the HPI. ROS Other: All systems not noted in ROS Statement are negative. Past Medical History Past Medical History: Atrial Fibrillation, Hyperlipidemia, Hypertension History of Any Multi-Drug Resistant Organisms: None Reported Past Surgical History: Hysterectomy, Orthopedic Surgery, Tubal Ligation Past Psychological History: No Psychological Hx Reported Smoking Status: Former smoker Past Alcohol Use History: None Reported Past Drug Use History: None Reported General Exam Limitations: no limitations Course Vital Signs 12/03/20 12/03/20 21:11 22:00 Temperature 98.0 F Pulse Rate 79 83 Respiratory 18 20 Rate Blood Pressure 142/83 136/93 O2 Sat by Pulse 97 97 Oximetry EKG Findings - EKG Comments: EKG Findings:: EKG demonstrates normal sinus rhythm with ventricular rate of 69. FL interval is 154. QRS 82. QTC of 394. There is inverted T-wave in lead 3. No acute ST segment elevations Medical Decision Making - Medical Decision Making Upon arrival patient is placed into room 12. Thorough history and physical exam was performed. IV is established. Laboratory studies were conducted. I did send the patient back for a repeat CT of her brain due to her worsening symptoms. Laboratory studies and imaging are reviewed. Daughter is adamant that the patient is getting progressively worse and needs a neurologic evaluation.. I did speak with Dr. Wahl. Patient will be admitted with neurology consultation. - Lab Data Result diagrams: 12/03/20 21:55 12/03/20 21:55 Lab Results 12/03/20 12/03/20 12/03/20 Range/Units 21:55 21:55 21:55 WBC 7.7 (3.8-10.6) k/uL RBC 5.39 (3.80-5.40) m/uL Hgb 17.2 H (11.4-16.0) gm/dL Hct 49.5 H (34.0-46.0) % MCV 91.9 (80.0-100.0) fL MCH 32.0 (25.0-35.0) pg MCHC 34.8 (31.0-37.0) g/dL RDW 13.1 (11.5-15.5) % Plt Count 210 (150-450) k/uL MPV 7.2 Neutrophils % 77 % Lymphocytes % 12 % Monocytes % 7 % Eosinophils % 1 % Basophils % 0 % Neutrophils # 6.0 (1.3-7.7) k/uL Lymphocytes # 0.9 L (1.0-4.8) k/uL Monocytes # 0.6 (0-1.0) k/uL Eosinophils # 0.1 (0-0.7) k/uL Basophils # 0.0 (0-0.2) k/uL PT 10.5 (9.0-12.0) sec INR 1.0 (<1.2) APTT 23.2 (22.0-30.0) sec Sodium (137-145) mmol/L Potassium (3.5-5.1) mmol/L Chloride (98-107) mmol/L Carbon Dioxide (22-30) mmol/L Anion Gap mmol/L BUN (7-17) mg/dL Creatinine (0.52-1.04) mg/dL Est GFR (CKD-EPI)AfAm (>60 ml/min/1.73 sqM) Est GFR (CKD-EPI)NonAf (>60 ml/min/1.73 sqM) Glucose (74-99) mg/dL Calcium (8.4-10.2) mg/dL Total Bilirubin (0.2-1.3) mg/dL AST (14-36) U/L ALT (4-34) U/L Alkaline Phosphatase (38-126) U/L Creatine Kinase (30-135) U/L Troponin I (0.000-0.034) ng/mL Total Protein (6.3-8.2) g/dL Albumin (3.5-5.0) g/dL TSH (0.465-4.680) mIU/L Urine Color Light Yellow Urine Appearance Clear (Clear) Urine pH 6.5 (5.0-8.0) Ur Specific Marion 1.005 (1.001-1.035) Urine Protein Negative (Negative) Urine Glucose (UA) Negative (Negative) Urine Ketones Negative (Negative) Urine Blood Negative (Negative) Urine Nitrite Negative (Negative) Urine Bilirubin Negative (Negative) Urine Urobilinogen <2.0 (<2.0) mg/dL Ur Leukocyte Esterase Small H (Negative) Urine RBC 2 (0-5) /hpf Urine WBC 6 H (0-5) /hpf Ur Squamous Epith Cells 1 (0-4) /hpf Urine Bacteria Many H (None) /hpf Urine Mucus Rare H (None) /hpf 12/03/20 12/03/20 Range/Units 21:55 21:55 WBC (3.8-10.6) k/uL RBC (3.80-5.40) m/uL Hgb (11.4-16.0) gm/dL Hct (34.0-46.0) % MCV (80.0-100.0) fL MCH (25.0-35.0) pg MCHC (31.0-37.0) g/dL RDW (11.5-15.5) % Plt Count (150-450) k/uL MPV Neutrophils % % Lymphocytes % % Monocytes % % Eosinophils % % Basophils % % Neutrophils # (1.3-7.7) k/uL Lymphocytes # (1.0-4.8) k/uL Monocytes # (0-1.0) k/uL Eosinophils # (0-0.7) k/uL Basophils # (0-0.2) k/uL PT (9.0-12.0) sec INR (<1.2) APTT (22.0-30.0) sec Sodium 138 (137-145) mmol/L Potassium 3.5 (3.5-5.1) mmol/L Chloride 106 (98-107) mmol/L Carbon Dioxide 27 (22-30) mmol/L Anion Gap 5 mmol/L BUN 10 (7-17) mg/dL Creatinine 0.54 (0.52-1.04) mg/dL Est GFR (CKD-EPI)AfAm >90 (>60 ml/min/1.73 sqM) Est GFR (CKD-EPI)NonAf 89 (>60 ml/min/1.73 sqM) Glucose 139 H (74-99) mg/dL Calcium 10.2 (8.4-10.2) mg/dL Total Bilirubin 0.9 (0.2-1.3) mg/dL AST 35 (14-36) U/L ALT 44 H (4-34) U/L Alkaline Phosphatase 100 (38-126) U/L Creatine Kinase 32 (30-135) U/L Troponin I 0.057 H* (0.000-0.034) ng/mL Total Protein 6.0 L (6.3-8.2) g/dL Albumin 3.6 (3.5-5.0) g/dL TSH 1.470 (0.465-4.680) mIU/L Urine Color Urine Appearance (Clear) Urine pH (5.0-8.0) Ur Specific Marion (1.001-1.035) Urine Protein (Negative) Urine Glucose (UA) (Negative) Urine Ketones (Negative) Urine Blood (Negative) Urine Nitrite (Negative) Urine Bilirubin (Negative) Urine Urobilinogen (<2.0) mg/dL Ur Leukocyte Esterase (Negative) Urine RBC (0-5) /hpf Urine WBC (0-5) /hpf Ur Squamous Epith Cells (0-4) /hpf Urine Bacteria (None) /hpf Urine Mucus (None) /hpf Disposition Clinical Impression: Encephalopathy acute, Tremor, UTI (urinary tract infection) Disposition: ADMITTED IP TO [facility] Condition: Stable Is patient prescribed a controlled substance at d/c from ED?: No Referrals: Nano Roman MD [Primary Care Provider] - 1-2 days Decision to Admit Reason: Admit from EC Decision Date: 12/03/20 Decision Time: 22:36
[2020-12-03 22:20] LABS: ALT 44 U/L (4-34); AST 35 U/L (14-36); African American GFR (CKD) >90 (>60 ml/min/1.73 sqM); Albumin 3.6 g/dL (3.5-5.0); Alkaline Phosphatase 100 U/L (38-126); Anion Gap 5 mmol/L; Blood Urea Nitrogen 10 mg/dL (7-17); Calcium 10.2 mg/dL (8.4-10.2); Carbon Dioxide 27 mmol/L (22-30); Chloride 106 mmol/L (98-107); Creatine Kinase 32 U/L (30-135); Glucose 139 mg/dL (74-99); Non-African American GFR(CKD) 89 (>60 ml/min/1.73 sqM); Sodium 138 mmol/L (137-145); Total Bilirubin 0.9 mg/dL (0.2-1.3)
[2020-12-03 22:38] LABS: Appearance,Urine Clear (Clear); Bacteria,Urine Many /hpf; Bilirubin,Urine Negative (Negative); Blood,Urine Negative (Negative); Color,Urine Light Yellow; Glucose,Urine (UA) Negative (Negative); Ketones,Urine Negative (Negative); Leukocyte Esterase,Urine Small (Negative); Mucus,Urine Rare /hpf; Nitrite,Urine Negative (Negative); PH, Urine 6.5 (5.0-8.0); Protein,Urine Negative (Negative); RBC,Urine 2 /hpf (0-5); Specific Gravity,Urine 1.005 (1.001-1.035); Squamous Epithelial Cell,Urine 1 /hpf (0-4); Urobilinogen,Urine <2.0 mg/dL (<2.0); WBC,Urine 6 /hpf (0-5)
[2020-12-03] MEDS ORDERED: cefTRIAXone IN SWFI 1,000 MG/10 ML SYRINGE IVP STA (22:42)
[2020-12-03] MEDS ORDERED: NALOXONE 0.4 MG/ML 1 ML VIAL IV PRN (22:46)
--- NOTE | 2020-12-03 22:46 | CT ---
EXAMINATION TYPE: CT brain wo con DATE OF EXAM: 12/03/2020 COMPARISON: 11/21/2020 HISTORY: ams CT DLP: 1072.4 mGycm Automated exposure control for dose reduction was used. There is cerebral cortical atrophy. There is no mass effect nor midline shift. There is no evidence o f intracranial hemorrhage. The calvarium is intact. There is no evidence of cerebral edema. IMPRESSION: Cerebral atrophy. No acute abnormality. No change.
[2020-12-03 22:51] LABS: Amphetamine Screen,Urine Not Detected (NotDetected); Barbiturate Screen,Urine Not Detected (NotDetected); Benzodiazepines Screen,Urine Not Detected (NotDetected); Cocaine Screen,Urine Not Detected (NotDetected); Methadone Screen, Urine Not Detected (NotDetected); Opiate Screen,Urine Not Detected (NotDetected); Oxycodone Screen, Urine Not Detected (NotDetected); Phencyclidine Screen,Urine Not Detected (NotDetected); Tricyclic Antidepressant,Urine Not Detected (NotDetected); Urn Cannabinoid Scrn Not Detected (NotDetected)
[2020-12-04] MEDS: SODIUM CHLORIDE 0.9% 1,000 ML IV SCH ×2 (03:12→11:54)
[2020-12-04 03:38] LABS: Basophils % (A) 0 %; Eosinophils # (A) 0.1 k/uL (0-0.7); Eosinophils % (A) 1 %; HCT 48.8 % (34.0-46.0); HGB 16.7 gm/dL (11.4-16.0); Lymphocytes # (A) 1.3 k/uL (1.0-4.8); Lymphocytes % (A) 19 %; MCH 31.4 pg (25.0-35.0); MCHC 34.1 g/dL (31.0-37.0); MCV 92.1 fL (80.0-100.0); Mean Platelet Volume 6.9; Monocytes # (A) 0.7 k/uL (0-1.0); Monocytes % (A) 11 %; Neutrophils # (A) 4.5 k/uL (1.3-7.7); Neutrophils % (A) 66 %; Platelet Count 194 k/uL (150-450); RDW 13.1 % (11.5-15.5); WBC 6.9 k/uL (3.8-10.6)
[2020-12-04 03:57] LABS: African American GFR (CKD) >90 (>60 ml/min/1.73 sqM); Anion Gap 6 mmol/L; Blood Urea Nitrogen 8 mg/dL (7-17); Calcium 10.2 mg/dL (8.4-10.2); Carbon Dioxide 27 mmol/L (22-30); Chloride 105 mmol/L (98-107); Glucose 105 mg/dL (74-99); Non-African American GFR(CKD) 86 (>60 ml/min/1.73 sqM); Potassium 3.5 mmol/L (3.5-5.1); Sodium 138 mmol/L (137-145)
--- NOTE | 2020-12-04 04:39 | P.HPIM ---
History of Present Illness H&P Date: 12/03/20 Chief Complaint: confusion 80 year old female with hypertension , P.afib patient brought in by her daughter, claiming that she has =been having increase confusion and mental status changes over the past one month and getting worse. she is unable to carry on her ADLS . she was, up until a month ago , able to drive herself and take care of her bills. upon interviewing the patient , ,she seems to have some confusion about her living situation and her grand kids. she has lengthy answers which seems to be meaningless and does not answer the questions asked. however, she denies any complaints at this time . she denies urinary symptoms, fever, chills, chest pain , trouble breathing, abd pain , nausea , vomiting. she denies any headache or focal neuro deficits. work up in the ED reviewed CT brain no acute pathology blood work , no leukocytosis and overall unremarkable elevated trops at baseline, EKG NSR most revent LVEF showed 55-60% Review of Systems Pertinent positives as noted in HPI. All other systems were reviewed and are negative Past Medical History Past Medical History: Atrial Fibrillation, Hyperlipidemia, Hypertension History of Any Multi-Drug Resistant Organisms: None Reported Past Surgical History: Hysterectomy, Orthopedic Surgery, Tubal Ligation Past Psychological History: No Psychological Hx Reported Smoking Status: Former smoker Past Alcohol Use History: None Reported Past Drug Use History: None Reported - Past Family History family Family Medical History: No Reported History Medications and Allergies Home Medications Medication Instructions Recorded Confirmed Type Cholecalciferol [Vitamin D3 (25 50 mcg PO DAILY 11/21/20 11/21/20 History Mcg = 1000 Iu)] Ketorolac 0.5% Ophth Soln [Acular 1 drop LEFT EYE BID 11/21/20 11/21/20 History 0.5%] Loteprednol Etabonate [Inveltys] 1 drop LEFT EYE BID 11/21/20 11/21/20 History Propylene Glycol/Peg 400/Pf 1 drop BOTH EYES BID PRN 11/21/20 11/21/20 History [Systane 0.3-0.4% Eye Drop] Vitamin B Complex 1 cap PO DAILY 11/21/20 11/21/20 History hydrOXYzine HCL [Atarax] 25 mg PO BID PRN 11/21/20 11/21/20 History Atorvastatin [Lipitor] 40 mg PO HS #15 tab 11/22/20 Rx Metoprolol Tartrate [Lopressor] 12.5 mg PO BID #60 tab 11/22/20 Rx Allergies Allergy/AdvReac Type Severity Reaction Status Date / Time No Known Allergies Allergy Verified 12/03/20 21:15 Physical Exam Vitals: Vital Signs Temp Pulse Resp BP Pulse Ox 12/03/20 22:00 83 20 136/93 97 12/03/20 21:11 98.0 F 79 18 142/83 97 Intake and Output 12/03/20 12/03/20 12/04/20 14:59 22:59 06:59 Other: Weight 92.533 kg Constitutional: No acute distress, conversant, pleasant Eyes: Anicteric sclerae, moist conjunctiva, Pupils equal round reactive to light ENMT: NC/AT Oropharynx clear, no erythema, or exudates Neck: Supple, FROM, no masses, or JVD No carotid bruits No thyromegaly Lungs: Clear to auscultation Clear to percussion Normal respiratory effort, no accessory muscle use Cardiovascular: Heart regular in rate and rhythm, No murmurs, gallops, or rubs No peripheral edema Abdominal: Soft Nontender, no guarding, rebound or rigidity Abdomen moving with respiration Normoactive bowel sounds No hepatomegaly, No splenomegaly No palpable mass No abdominal wall hernia noted Skin: Normal temperature, tone, texture, turgor No induration No subcutaneous nodules No rash, lesions No ulcers Extremities: No digital cyanosis No clubbing Pedal pulses intact and symmetrical Radial pulses intact and symmetrical No calf tenderness Psychiatric: Alert and oriented to person, place and time Appropriate affect Neuro Muscles Strength 4/5 in all 4 extremities Sensation to light touch grossly present throughout Cranial nerves II-XII grossly intact No focal sensory deficits Lymphatics: no palpable cervical or supraclavicular , or inguinal lymph nodes Results CBC & Chem 7: 12/04/20 03:23 12/04/20 03:23 Labs: Abnormal Lab Results - Last 24 Hours (Table) 12/03/20 12/03/20 12/03/20 Range/Units 21:55 21:55 21:55 Hgb 17.2 H (11.4-16.0) gm/dL Hct 49.5 H (34.0-46.0) % Lymphocytes # 0.9 L (1.0-4.8) k/uL Glucose 139 H (74-99) mg/dL ALT 44 H (4-34) U/L Troponin I (0.000-0.034) ng/mL Total Protein 6.0 L (6.3-8.2) g/dL Ur Leukocyte Esterase Small H (Negative) Urine WBC 6 H (0-5) /hpf Urine Bacteria Many H (None) /hpf Urine Mucus Rare H (None) /hpf 12/03/20 Range/Units 21:55 Hgb (11.4-16.0) gm/dL Hct (34.0-46.0) % Lymphocytes # (1.0-4.8) k/uL Glucose (74-99) mg/dL ALT (4-34) U/L Troponin I 0.057 H* (0.000-0.034) ng/mL Total Protein (6.3-8.2) g/dL Ur Leukocyte Esterase (Negative) Urine WBC (0-5) /hpf Urine Bacteria (None) /hpf Urine Mucus (None) /hpf Assessment and Plan Assessment: episodes of confusion and at times AMS rule out infectious vs metabolic , vs dementia neuro consult fall precautions follow up urine cultures continue with ANtibiotics for uTI, recent episode of UTI neuro checks ivf hydration with normal saline LVEF 55-60% brain CT no acute pathology chronic conditions P afib hypertensio n hyperlipidemia resume cardiac meds chronically elevated trops at baseline OT evaluation CODE STATUS full code DVT prophylaxis: heparin sc ti d Discussed with: Patient, ER, RN Anticipated length of stay < than [address]: pending clincal course A total of 65 minutes was spent on the care of this complex patient more than 50% of the time was spent in counseling and care coordination.
[2020-12-04] MEDS: METOPROLOL TARTRATE 12.5 MG TAB PO SCH ×2 (09:10→20:49)
[2020-12-04] MEDS ORDERED: ARTIFICIAL TEARS-HYPROMELLOSE DROPS 15 ML BTL BOTH EYES PRN (12:28)
--- NOTE | 2020-12-04 12:32 | P.PN ---
Subjective Progress Note Date: 12/04/20 Patient was awake and alert when I saw her. She appeared appropriate and was answering all of my questions appropriately. She said that she came into the emergency room because of her having tremors that is being progressively worse over the past few weeks. Her tremors are intentional and only mild today observed by me. Objective - Vital Signs Vital signs: Vital Signs Temp 98 F 12/04/20 11:52 Pulse 74 12/04/20 11:52 Resp 18 12/04/20 11:52 BP 167/92 12/04/20 11:52 Pulse Ox 96 12/04/20 11:52 Intake & Output 12/03/20 12/04/20 12/04/20 18:59 06:59 18:59 Intake Total 118 Output Total 500 Balance -500 118 Weight 92.9 kg Intake: Oral 118 Output: Urine 500 Other: Voiding Method Toilet - Exam General: The patient is awake and alert, in no distress Eye: there is normal conjunctiva bilaterally. Neck: The neck is supple, there is no JVD. Cardiovascular: Normal S1-S2, no S3-S4, no murmurs. Respiratory: Lungs clear to auscultation bilaterally Gastrointestinal: Abdomen is soft, nontender Musculoskeletal: There is no pedal edema. Neurological:. Speech is normal. Skin: Skin is warm and dry - Labs CBC & Chem 7: 12/04/20 03:23 12/04/20 03:23 Labs: Abnormal Lab Results - Last 24 Hours (Table) 12/03/20 12/03/20 12/03/20 Range/Units 21:55 21:55 21:55 Hgb 17.2 H (11.4-16.0) gm/dL Hct 49.5 H (34.0-46.0) % Lymphocytes # 0.9 L (1.0-4.8) k/uL Glucose 139 H (74-99) mg/dL ALT 44 H (4-34) U/L Troponin I (0.000-0.034) ng/mL Total Protein 6.0 L (6.3-8.2) g/dL Ur Leukocyte Esterase Small H (Negative) Urine WBC 6 H (0-5) /hpf Urine Bacteria Many H (None) /hpf Urine Mucus Rare H (None) /hpf 12/03/20 12/04/20 12/04/20 Range/Units 21:55 00:26 03:23 Hgb (11.4-16.0) gm/dL Hct (34.0-46.0) % Lymphocytes # (1.0-4.8) k/uL Glucose (74-99) mg/dL ALT (4-34) U/L Troponin I 0.057 H* 0.056 H* 0.057 H* (0.000-0.034) ng/mL Total Protein (6.3-8.2) g/dL Ur Leukocyte Esterase (Negative) Urine WBC (0-5) /hpf Urine Bacteria (None) /hpf Urine Mucus (None) /hpf 12/04/20 12/04/20 Range/Units 03:23 03:23 Hgb 16.7 H (11.4-16.0) gm/dL Hct 48.8 H (34.0-46.0) % Lymphocytes # (1.0-4.8) k/uL Glucose 105 H (74-99) mg/dL ALT (4-34) U/L Troponin I (0.000-0.034) ng/mL Total Protein (6.3-8.2) g/dL Ur Leukocyte Esterase (Negative) Urine WBC (0-5) /hpf Urine Bacteria (None) /hpf Urine Mucus (None) /hpf Assessment and Plan Assessment: This is a 80-year-old female with past medical history noted below that presented to the emergency room brought in by her daughter with a chief complaint of altered mental status and tremor. Patient was evaluated in the ER and admitted to the hospital for further management of her medical problems noted below. 1. Episodes of altered mental status and tremors involving both hands worse on the right, now resolved. Computed tomography scan of the head in the emergency room showed no acute findings. Neurology consulted for further evaluation. 2. Positive urinalysis, patient is a symptomatic. Her urinalysis is not impressive. She was started on IV ceftriaxone and urine culture sent. 3. History of atrial flutter maintained on metoprolol 4. Chronic troponin leak, patient denies any chest pain. 12-lead EKG with no acute ischemic changes. 6. Physical debility, PT/OT consulted 7. DVT prophylaxis with subcu Lovenox
[2020-12-04] MEDS: ENOXAPARIN 40 MG/0.4 ML SYRINGE SQ SCH (14:35)
--- NOTE | 2020-12-04 17:22 | P.CNNES ---
History of Present Illness Consult date: 12/04/20 Reason for Consult: mental status changes and increasing tremor History of Present Illness: The patient is an 80-year-old female who is seen in neurologic consultation on December 04, 2020, via teleneurology. The chart is reviewed. The patient has difficulty telling me why she came into the hospital. She believes she came in because her tremors were getting worse. She says that her daughter brought her in. The patient's is present at the bedside, at the time of this evaluation. His only contribution to the history is that "she came in because of elevated blood pressure". Neither the patient nor her no what her blood pressure reading was at home. The patient states that her daughter took her blood pressure and found it to be high. According to the patient she has noticed some increasing confusion for the past few months. She reports that the tremor occurs in her right hand and leg. She is a poor historian. She initially is unable to tell me when the tremor occurs however, then reports that she is unable to write, because her handwriting is so messy, because of the tremor. The patient also reports having difficulty feeding herself, because of the tremor of her right hand. In addition, the patient reports that this tremor will sometimes awaken her from sleep. The patient denies changes in vision, headache and slurred speech. She does report that she is sometimes slow to respond to questions. She denies difficulty swallowing however does report pain in her esophagus, at times with swallowing. She denies paresthesias in her extremities. She reports that she is able to walk with the use of a cane or a walker. She denies falling. Past Medical History Past Medical History: Atrial Fibrillation, Hyperlipidemia, Hypertension History of Any Multi-Drug Resistant Organisms: None Reported Past Surgical History: Hysterectomy, Orthopedic Surgery, Tubal Ligation Past Anesthesia/Blood Transfusion Reactions: No Reported Reaction Past Psychological History: No Psychological Hx Reported Smoking Status: Former smoker Past Alcohol Use History: None Reported Past Drug Use History: None Reported - Past Family History family Family Medical History: No Reported History Additional Family Medical History / Comment(s): the patient does report that her mother had a tremor Medications and Allergies Home Medications Medication Instructions Recorded Confirmed Type Cholecalciferol [Vitamin D3 (25 50 mcg PO DAILY 11/21/20 12/04/20 History Mcg = 1000 Iu)] Propylene Glycol/Peg 400/Pf 1 drop BOTH EYES BID PRN 11/21/20 12/04/20 History [Systane 0.3-0.4% Eye Drop] Vitamin B Complex 1 cap PO DAILY 11/21/20 12/04/20 History hydrOXYzine HCL [Atarax] 25 mg PO BID PRN 11/21/20 12/04/20 History Atorvastatin [Lipitor] 40 mg PO HS #15 tab 11/22/20 12/04/20 Rx Metoprolol Tartrate [Lopressor] 12.5 mg PO BID #60 tab 11/22/20 12/04/20 Rx Allergies Allergy/AdvReac Type Severity Reaction Status Date / Time No Known Allergies Allergy Verified 12/04/20 08:38 Physical Examination - Vital Signs Vital Signs: Vital Signs Temp Pulse Pulse Resp BP BP Pulse Ox 12/04/20 11:52 98 F 74 18 167/92 96 12/04/20 08:00 98.1 F 83 18 166/90 95 12/04/20 04:00 97.8 F 77 16 160/59 96 12/04/20 02:00 68 16 12/04/20 00:30 68 16 12/04/20 00:00 97.8 F 68 16 137/68 97 12/03/20 23:30 70 16 135/85 98 12/03/20 22:00 83 20 136/93 97 12/03/20 21:11 98.0 F 79 18 142/83 97 Intake and Output 12/03/20 12/04/20 12/04/20 22:59 06:59 14:59 Intake Total 358 Output Total 500 Balance -500 358 Intake: Oral 358 Output: Urine 500 Other: Voiding Method Toilet Weight 92.533 kg 92.9 kg Gen.: The patient is reclining in the bed. She is in no acute distress. She is obese. HEENT: Head is atraumatic, normocephalic. Fundus not visualized. There is no scleral icterus. Mucous membranes are moist. Neck: Supple without carotid bruits Heart: Regular rate and rhythm Lungs: Clear to auscultation Extremities: Without edema Neurological examination Mental status: The patient's awake, alert and oriented to her name, date of , age, president, location and current year. There is no anomia. There is no right left confusion. The patient is able to accurately follow two-step commands. Cranial nerves: Pupils are unequal with the left pupil being 4 mm right pupil 2 mm. Both are reactive. Visual pereira are full to confrontation. Extraocular movements are intact. There is no nystagmus. Facial sensation is intact. There is no facial asymmetry. Hearing is grossly intact. Uvula and palate are midline. Shoulder shrug is symmetric. Tongue protrudes midline. Motor: Strength is 5/5 throughout. Coordination: There is a very mild right upper extremity intention tremor present on [id number] testing. Tremor is not present when the patient is performing rapid alternating movements or when touching each individual finger to her thumb, rapidly. Heel to ragland testing is intact. Abnormal movements: At the onset of my history taking, the patient's right hand/forearm begins to shake in a flexion-extension movement. After instruction by me, the patient places her left hand over her right hand and the shaking resolves. Deep tendon reflexes: 2+/4+ throughout with the exception of the right patella at 1+/4+. Plantar responses are mute bilaterally. Sensation: Grossly intact to light touch throughout. Results - Laboratory Findings CBC and BMP: 12/04/20 03:23 12/04/20 03:23 Abnormal Lab Findings: Abnormal Labs 12/03/20 12/03/20 12/03/20 21:55 21:55 21:55 Hgb 17.2 H Hct 49.5 H Lymphocytes # 0.9 L Glucose 139 H ALT 44 H Troponin I Total Protein 6.0 L Ur Leukocyte Esterase Small H Urine WBC 6 H Urine Bacteria Many H Urine Mucus Rare H 12/03/20 12/04/20 12/04/20 21:55 00:26 03:23 Hgb Hct Lymphocytes # Glucose ALT Troponin I 0.057 H* 0.056 H* 0.057 H* Total Protein Ur Leukocyte Esterase Urine WBC Urine Bacteria Urine Mucus 12/04/20 12/04/20 03:23 03:23 Hgb 16.7 H Hct 48.8 H Lymphocytes # Glucose 105 H ALT Troponin I Total Protein Ur Leukocyte Esterase Urine WBC Urine Bacteria Urine Mucus Assessment and Plan Assessment: 1. Reported tremor-inconsistent, potentially essential tremor however the majority of it appears to be anxiety induced 2. Reported memory difficulties: The patient is able to answer all my questions without difficulty, although she is a poor historian. We will consider the possibility of the metabolic/treatable etiologies for memory loss. Must also consider a component of depression 3.? Dehydration 4. Urinary tract infection Plan: 1. Consider further workup of tremor, as an outpatient, with neurology 2. Your treatment of urinary tract infection 3. Blood pressure control 4. Patient should be allowed to get out of bed with assistance 5. Will check B12, folate, VDRL, TSH for treatable causes of memory loss Time with Patient: Greater than 30 (spent 40 minutes with patient via teleneurology)
[2020-12-04] MEDS ORDERED: ATORVASTATIN 40 MG TAB PO SCH (21:00)
[2020-12-04 22:53] LABS: Folate, Serum 14.3 ng/mL
[2020-12-05] MEDS: METOPROLOL TARTRATE 12.5 MG TAB PO SCH (08:59)
[2020-12-05] MEDS: ENOXAPARIN 40 MG/0.4 ML SYRINGE SQ SCH (08:59)
[2020-12-05] MEDS ORDERED: CHOLECALCIFEROL 25 MCG (1000 IU) TABLET PO SCH (09:00)
--- NOTE | 2020-12-05 10:13 | P.DS ---
Providers Date of admission: 12/03/20 22:46 Expected date of discharge: 12/05/20 Attending physician: Carmine Wahl MD Consults: 12/03/20 22:47 Consult Physician Urgent Consulting Provider: Lesly Minaya Consult Reason/Comments: acute encephalopathy, new tremor Do you want consulting provider notified?: Yes Primary care physician: Nano Roman MD Hospital Course: This is a 80-year-old female with past medical history noted below that presented to the emergency room brought in by her daughter with a chief complaint of altered mental status and tremor. Patient was evaluated in the ER and admitted to the hospital for further management of her medical problems noted below. 1. Episodes of altered mental status and tremors involving both hands worse on the right, now resolved. Computed tomography scan of the head in the emergency room showed no acute findings. Patient was seen and evaluated by neurology. Thought to be essential tremor. Plan to follow up outpatient. Vitamin B12 and folic acid within acceptable range. 2. Positive urinalysis, patient is a symptomatic. Her urinalysis is not impressive. She was started on IV ceftriaxone. Would finish 3 days course of antibiotic. 3. History of atrial flutter maintained on metoprolol 4. Chronic troponin leak, patient denies any chest pain. 12-lead EKG with no acute ischemic changes. 6. Physical debility, PT/OT consulted. Patient did well. She will be discharged home with home care. Patient Condition at Discharge: Stable Plan - Discharge Summary New Discharge Prescriptions: New Cephalexin [Keflex] 500 mg PO Q6HR 1 Days #4 cap Continue Propylene Glycol/Peg 400/Pf [Systane 0.3-0.4% Eye Drop] 1 drop BOTH EYES BID PRN PRN Reason: Dry Eye(S) Cholecalciferol [Vitamin D3 (25 Mcg = 1000 Iu)] 50 mcg PO DAILY Vitamin B Complex 1 cap PO DAILY Atorvastatin [Lipitor] 40 mg PO HS #15 tab Metoprolol Tartrate [Lopressor] 12.5 mg PO BID #60 tab Discontinued hydrOXYzine HCL [Atarax] 25 mg PO BID PRN PRN Reason: Anxiety Discharge Medication List Cholecalciferol [Vitamin D3 (25 Mcg = 1000 Iu)] 50 mcg PO DAILY 11/21/20 [History] Propylene Glycol/Peg 400/Pf [Systane 0.3-0.4% Eye Drop] 1 drop BOTH EYES BID PRN 11/21/20 [History] Vitamin B Complex 1 cap PO DAILY 11/21/20 [History] Atorvastatin [Lipitor] 40 mg PO HS #15 tab 11/22/20 [Rx] Metoprolol Tartrate [Lopressor] 12.5 mg PO BID #60 tab 11/22/20 [Rx] Cephalexin [Keflex] 500 mg PO Q6HR 1 Days #4 cap 12/05/20 [Rx] Follow up Appointment(s)/Referral(s): Nano Roman MD [Primary Care Provider] - 1-2 days Discharge Disposition: HOME WITH HOME HEALTH SERVICES
[2020-12-05 10:45] VITALS: RESP 20
[2020-12-05 11:52] VITALS: BP 177/104; PULSE 80; TEMP 97.9
[2020-12-05 14:26] VITALS: BMI 35.2
== END 2020-12-05 14:21 | disposition home health service (06) ==
LOC: EC 21:10 → 3SCARD 22:46
PROVIDERS: ADMIT Internal Medicine; ATTEND Internal Medicine
DX: R41.82 Altered mental status, unspecified (principal); R25.1 Tremor, unspecified; E86.0 Dehydration; I48.91 Unspecified atrial fibrillation; I48.92 Unspecified atrial flutter; R79.89 Other specified abnormal findings of blood chemistry; N39.0 Urinary tract infection, site not specified; I10 Essential (primary) hypertension; E78.5 Hyperlipidemia, unspecified; H40.9 Unspecified glaucoma; R53.81 Other malaise; R63.3 Feeding difficulties; F41.9 Anxiety disorder, unspecified; R41.3 Other amnesia; Z20.822 Contact with and (suspected) exposure to COVID-19; Z87.440 Personal history of urinary (tract) infections; Z90.710 Acquired absence of both cervix and uterus; Z98.51 Tubal ligation status; Z79.899 Other long term (current) drug therapy; Z98.890 Other specified postprocedural states; Z87.891 Personal history of nicotine dependence
CPT/HCPCS: 96361 ×2; 96365; 96366; 96372 ×2; 96376; 99285; 36415; 93005; 97162; 97166; 80053; 80048; 84443; 82607; 82550; 82746; 84484 ×2; 85025 ×2; 85610; 85730; 81001; 87040; 80306; 87635; 70450; G0378 ×3; J1650 ×2; J0696 ×3

== ENCOUNTER → 2021-01-28 | Outpatient (CLI) | payer MEDICARE ==
--- NOTE | 2021-01-28 16:07 | MR ---
EXAMINATION TYPE: MR brain wo con DATE OF EXAM: 01/28/2021 COMPARISON: None HISTORY: Acute mental status changes, new onset Afib. Multiplanar multiecho imaging of the brain without contrast. There is cerebral diffuse cortical atrophy. There is no mass effect nor midline shift. There is no ev idence of intracranial hemorrhage. Diffusion images show no sign of an acute infarct. On the T2 and F LAIR images there are multiple small foci of increased signal at the periventricular white matter tony suring up to 4 mm. Total number is approximately 15 there is some sparing of the corpus callosum. The re is mild thinning of the corpus callosum. The brainstem appears intact. Cerebellum is intact. Sella turcica is normal. IMPRESSION: Cerebral atrophy. White matter signal changes more likely related to chronic small vessel ischemia. N o evidence of an acute infarct.
== END | disposition home or self-care (01) ==
LOC: RADMRIMAIN 12:05
PROVIDERS: ATTEND Psychiatry & Neurology Neurology
DX: G31.9 Degenerative disease of nervous system, unspecified (principal)
CPT/HCPCS: 70551

== ENCOUNTER 2024-02-24 13:28 | Observation (INO) | payer MEDICARE ==
--- NOTE | 2024-02-24 15:00 | ED ---
General Adult HPI - General Chief complaint: Syncope Stated complaint: syncope Time Seen by Provider: 02/24/24 14:00 Source: patient Mode of arrival: EMS Limitations: no limitations, altered mental status - History of Present Illness Initial comments: 83-year-old female with past medical history of A-fib, dementia who presents to the emergency department after a syncopal episode at home. Patient was using the restroom. Her mutual fund sales agent was present. The patient ended up having a syncopal episode. The patient did not straight from the toilet. There was no head injury. Patient was only out for a couple of seconds before she notified her [id number]. EMS was called and brought the patient to the hospital. Patient reports that every time she stands up she gets extremely lightheaded. She normally ambulates with a walker however at this point is too weak and cannot ambulate at all. She denies any injuries or pain. No recent infections. No nausea, vomiting or diarrhea. Patient has had a good appetite. No recent changes in any medications that she does not take any medications. She does have a history of A-fib however refuses to take daily medications. No other alleviating, precipitating or modifying factors - Related Data Home Medications Medication Instructions Recorded Confirmed No Known Home Medications 02/24/24 02/24/24 Allergies Allergy/AdvReac Type Severity Reaction Status Date / Time No Known Allergies Allergy Verified 02/24/24 15:33 Review of Systems ROS Statement: Those systems with pertinent positive or pertinent negative responses have been documented in the HPI. ROS Other: All systems not noted in ROS Statement are negative. Past Medical History Past Medical History: Atrial Fibrillation, Dementia, Hyperlipidemia, Hypertension History of Any Multi-Drug Resistant Organisms: None Reported Past Surgical History: Hysterectomy, Orthopedic Surgery, Tubal Ligation Past Anesthesia/Blood Transfusion Reactions: No Reported Reaction Past Psychological History: No Psychological Hx Reported Smoking Status: Former smoker Past Alcohol Use History: None Reported Past Drug Use History: None Reported - Past Family History family Family Medical History: No Reported History Additional Family Medical History / Comment(s): the patient does report that her mother had a tremor General Exam Limitations: no limitations, altered mental status Course Vital Signs 02/24/24 02/24/24 02/24/24 13:40 15:11 16:46 Temperature 97.6 F Pulse Rate 71 81 Respiratory 18 16 18 Rate Blood Pressure 107/72 90/54 Blood Pressure 102/78 [Right Arm Sitting] Blood Pressure 93/68 [Right Arm Supine] O2 Sat by Pulse 99 96 97 Oximetry Medical Decision Making - Medical Decision Making Was pt. sent in by a medical professional or institution (ANIL Miguel, PHYSIOLOGICAL CHEMIST, urgent care, hospital, or [facility]...) When possible be specific @ -[No] Did you speak to anyone other than the patient for history (EMS, parent, family, police, friend...)? What history was obtained from this source @ -[No] Did you review nursing and triage notes (agree or disagree)? Why? @ -[I reviewed and agree with nursing and triage notes] Were old charts reviewed (outside hosp., previous admission, EMS record, old EKG, old radiological studies, urgent care reports/EKG's, [facility] records)? Report findings @ -[No old charts were reviewed] Differential Diagnosis (chest pain, altered mental status, abdominal pain women, abdominal pain men, vaginal bleeding, weakness, fever, dyspnea, syncope, headache, dizziness, GI bleed, back pain, seizure, CVA, palpatations, mental health, musculoskeletal)? @ -[not applicable] EKG interpreted by me (3pts min.). @ -Yes and demonstrates atrial flutter with a rate of 76. QRS 98. QTc of 308. No acute ST segment elevations or depressions X-rays interpreted by me (1pt min.). @ -[None done] CT interpreted by me (1pt min.). @ -[None done] U/S interpreted by me (1pt. min.). @ -[None done] What testing was considered but not performed or refused? (CT, X-rays, U/S, labs)? Why? @ -[None] What meds were considered but not given or refused? Why? @ -[None] Did you discuss the management of the patient with other professionals (professionals i.e. ANIL Miguel, PHYSIOLOGICAL CHEMIST, lab, RT, psych nurse, social service manager, segregator, teacher, aadc plans staff officer, case packer)? Give summary @ -[No] Was smoking cessation discussed for >3mins.? @ -[No] Was critical care preformed (if so, how long)? @ -[No] Were there social determinants of health that impacted care today? How? (Homelessness, low income, unemployed, alcoholism, drug addiction, transportation, low edu. Level, literacy, decrease access to med. care, longterm, rehab)? @ -[No] Was there de-escalation of care discussed even if they declined (Discuss DNR or withdrawal of care, Hospice)? DNR status @ -[No] What co-morbidities impacted this encounter? (DM, HTN, Smoking, COPD, CAD, Cancer, CVA, ARF, Chemo, Hep., AIDS, mental health diagnosis, sleep apnea, morbid obesity)? @ -[None] Was patient admitted / discharged? Hospital course, mention meds given and route, prescriptions, significant lab abnormalities, going to OR and other pertinent info. @ -[hospital course] Undiagnosed new problem with uncertain prognosis? @ -[No] Drug Therapy requiring intensive monitoring for toxicity (Heparin, Nitro, Insulin, Cardizem)? @ -[No] Were any procedures done? @ -[No] Diagnosis/symptom? @ -[default] Acute, or Chronic, or Acute on Chronic? @ -[default] Uncomplicated (without systemic symptoms) or Complicated (systemic symptoms)? @ -[default] Side effects of treatment? @ -[No] Exacerbation, Progression, or Severe Exacerbation? @ -[No] Poses a threat to life or bodily function? How? (Chest pain, [place], [place], pneumonia, PE, COPD, DKA, ARF, appy, cholecystitis, CVA, Diverticulitis, Homicidal, Suicidal, threat to staff... and all critical care pts) @ -[No] - Lab Data Result diagrams: 02/24/24 14:55 02/24/24 14:55 Lab Results 02/24/24 02/24/24 02/24/24 Range/Units 14:55 14:55 14:55 WBC 3.9 (3.8-10.6) k/uL RBC 4.98 (3.80-5.40) m/uL Hgb 14.8 (11.4-16.0) gm/dL Hct 46.1 H (34.0-46.0) % MCV 92.5 (80.0-100.0) fL MCH 29.8 (25.0-35.0) pg MCHC 32.2 (31.0-37.0) g/dL RDW 13.8 (11.5-15.5) % Plt Count 137 L (150-450) k/uL MPV 7.7 Neutrophils % 70 % Lymphocytes % 17 % Monocytes % 11 % Eosinophils % 0 % Basophils % 0 % Neutrophils # 2.7 (1.3-7.7) k/uL Lymphocytes # 0.7 L (1.0-4.8) k/uL Monocytes # 0.4 (0-1.0) k/uL Eosinophils # 0.0 (0-0.7) k/uL Basophils # 0.0 (0-0.2) k/uL PT 11.0 (10.0-12.5) sec INR 1.0 (<1.2) APTT 25.7 (22.0-30.0) sec Sodium 138 (137-145) mmol/L Potassium 3.7 (3.5-5.1) mmol/L Chloride 110 H (98-107) mmol/L Carbon Dioxide 19 L (22-30) mmol/L Anion Gap 9 mmol/L BUN 24 H (7-17) mg/dL Creatinine 0.53 (0.52-1.04) mg/dL Est GFR (CKD-EPI)AfAm >90 (>60 ml/min/1.73 sqM) Est GFR (CKD-EPI)NonAf 88 (>60 ml/min/1.73 sqM) Glucose 110 H (74-99) mg/dL Calcium 9.0 (8.4-10.2) mg/dL Total Bilirubin 0.8 (0.2-1.3) mg/dL AST 23 (14-36) U/L ALT 12 (4-34) U/L Alkaline Phosphatase 89 (38-126) U/L Troponin I (0.000-0.034) ng/mL Total Protein 5.7 L (6.3-8.2) g/dL Albumin 3.2 L (3.5-5.0) g/dL 02/24/24 Range/Units 14:55 WBC (3.8-10.6) k/uL RBC (3.80-5.40) m/uL Hgb (11.4-16.0) gm/dL Hct (34.0-46.0) % MCV (80.0-100.0) fL MCH (25.0-35.0) pg MCHC (31.0-37.0) g/dL RDW (11.5-15.5) % Plt Count (150-450) k/uL MPV Neutrophils % % Lymphocytes % % Monocytes % % Eosinophils % % Basophils % % Neutrophils # (1.3-7.7) k/uL Lymphocytes # (1.0-4.8) k/uL Monocytes # (0-1.0) k/uL Eosinophils # (0-0.7) k/uL Basophils # (0-0.2) k/uL PT (10.0-12.5) sec INR (<1.2) APTT (22.0-30.0) sec Sodium (137-145) mmol/L Potassium (3.5-5.1) mmol/L Chloride (98-107) mmol/L Carbon Dioxide (22-30) mmol/L Anion Gap mmol/L BUN (7-17) mg/dL Creatinine (0.52-1.04) mg/dL Est GFR (CKD-EPI)AfAm (>60 ml/min/1.73 sqM) Est GFR (CKD-EPI)NonAf (>60 ml/min/1.73 sqM) Glucose (74-99) mg/dL Calcium (8.4-10.2) mg/dL Total Bilirubin (0.2-1.3) mg/dL AST (14-36) U/L ALT (4-34) U/L Alkaline Phosphatase (38-126) U/L Troponin I 0.023 (0.000-0.034) ng/mL Total Protein (6.3-8.2) g/dL Albumin (3.5-5.0) g/dL Disposition Clinical Impression: Orthostatic hypotension, Syncope and collapse Disposition: ADMITTED IP TO THIS [facility] Condition: Stable Is patient prescribed a controlled substance at d/c from ED?: No Referrals: Nano Roman MD [Primary Care Provider] - 1-2 days Time of Disposition: 18:20 Decision to Admit Reason: Admit from EC Decision Date: 02/24/24 Decision Time: 18:21
[2024-02-24 15:02] LABS: Basophils % (A) 0 %; Eosinophils % (A) 0 %; HCT 46.1 % (34.0-46.0); HGB 14.8 gm/dL (11.4-16.0); Lymphocytes # (A) 0.7 k/uL (1.0-4.8); Lymphocytes % (A) 17 %; MCH 29.8 pg (25.0-35.0); MCHC 32.2 g/dL (31.0-37.0); MCV 92.5 fL (80.0-100.0); Mean Platelet Volume 7.7; Monocytes # (A) 0.4 k/uL (0-1.0); Monocytes % (A) 11 %; Neutrophils # (A) 2.7 k/uL (1.3-7.7); Neutrophils % (A) 70 %; Platelet Count 137 k/uL (150-450); RBC 4.98 m/uL (3.80-5.40); RDW 13.8 % (11.5-15.5); WBC 3.9 k/uL (3.8-10.6)
[2024-02-24 15:12] LABS: Partial Thromboplastin Time 25.7 sec (22.0-30.0)
[2024-02-24 15:20] LABS: ALT 12 U/L (4-34); AST 23 U/L (14-36); African American GFR (CKD) >90 (>60 ml/min/1.73 sqM); Albumin 3.2 g/dL (3.5-5.0); Alkaline Phosphatase 89 U/L (38-126); Anion Gap 9 mmol/L; Blood Urea Nitrogen 24 mg/dL (7-17); Carbon Dioxide 19 mmol/L (22-30); Chloride 110 mmol/L (98-107); Glucose 110 mg/dL (74-99); Non-African American GFR(CKD) 88 (>60 ml/min/1.73 sqM); Potassium 3.7 mmol/L (3.5-5.1); Sodium 138 mmol/L (137-145); Total Bilirubin 0.8 mg/dL (0.2-1.3); Total Protein 5.7 g/dL (6.3-8.2)
--- NOTE | 2024-02-24 16:09 | XR ---
EXAMINATION TYPE: XR chest 2V DATE OF EXAM: 02/24/2024 COMPARISON: 11/21/2020 HISTORY: Syncope TECHNIQUE: Frontal and lateral views of the chest are obtained. FINDINGS: There is no focal air space opacity, pleural effusion, or pneumothorax seen. The cardiac silhouette size is within normal limits. The osseous structures are intact. Ectatic aorta. IMPRESSION: No acute cardiopulmonary process.
[2024-02-24] MEDS: SODIUM CHLORIDE 0.9% 1,000 ML IV SCH (17:58)
[2024-02-24] MEDS ORDERED: NALOXONE 0.4 MG/ML 1 ML VIAL IV PRN (18:21)
--- NOTE | 2024-02-24 20:15 | US ---
EXAMINATION TYPE: US carotid duplex BILAT DATE OF EXAM: 02/24/2024 COMPARISON: NONE CLINICAL INDICATION: Female, 83 years old with history of syncope; AMS. Portable EC patient. Patient was shaking during exam. TECHNIQUE: Carotid duplex ultrasound examination. Indirect Doppler criteria was utilized. FINDINGS: EXAM MEASUREMENTS: RIGHT: Peak Systolic Velocity (PSV) cm/sec ----- Right CCA: 41.2 ----- Right ICA: 48.1 ----- Right ECA: 83.1 ICA/CCA ratio: 1.2 RIGHT: End Diastole cm/sec ----- Right CCA: 7.8 ----- Right ICA: 11.1 ----- Right ECA: 0.0 LEFT: Peak Systolic Velocity (PSV) cm/sec ----- Left CCA: 37.2 ----- Left ICA: 52.6 ----- Left ECA: 84.5 ICA/CCA ratio: 1.4 LEFT: End Diastole cm/sec ----- Left CCA: 8.4 ----- Left ICA: 14.9 ----- Left ECA: 12.0 VERTEBRALS (direction of flow): Right Vertebral: Antegrade Left Vertebral: Antegrade Rhythm: Normal PROFESSOR OF LAW NOTES: Wall thickening. No elevated velocities. Small amount of plaque right bulb. IMPRESSION: Less than 50% stenosis of the bilateral carotid bifurcations. Criteria for Assigning % of Stenosis / Diameter reduction (Estimation based on the indirect measurements of the internal carotid artery velocities (ICA PSV). 1. Normal (no stenosis)=ICA PSV < 125 cm/s: ratio < 2.0: ICA EDV<40 cm/s. 2. Less than 50% stenosis=ICA PSV < 125 cm/s: ratio < 2.0: ICA EDV<40 cm/s. 3. 50 to 69% stenosis=ICA PSV of 125 to 230 cm/s: ration 2.0 ? 4.0: ICA EDV 40-100 cm/s. 4. Greater than 70% stenosis to near occlusion= ICA PSV > 230 cm/s: ratio > 4.0: ICA EDV > 100 cm/s. 5. Near occlusion= ICA PSV velocities may be low or undetectable: variable ratio and ICA EDV. 6. Total occlusion=unable to detect flow.
--- NOTE | 2024-02-24 21:12 | P.HPIM ---
History of Present Illness H&P Date: 02/24/24 Chief Complaint: Syncope This is 83-year-old patient who presented to the ER. Most of the history was obtained from the ER physician Dr. Dawson. Patient had episode of syncope. [employer] Operations Consultant was present. Using the restroom. Patient passed out for couple of seconds. Patient does get lightheaded with standing up. Normally uses a walker. Has been getting very weak. States her appetite is okay. No fever no chills. Patient has been refusing to take her medications for some time. Does not really care to go to the doctors. Review of systems: GEN.: Tired EYES: None HEENT: None NECK: None RESPIRATORY: None CARDIOVASCULAR: None GASTROINTESTINAL: None GENITOURINARY: None MUSCULOSKELETAL: Pains LYMPHATICS: None HEMATOLOGICAL: Tremors PSYCHIATRY: Forgetful] NEUROLOGICAL: Denies any change in swallowing, speech, or any focal weakness Social history: Uses a walker. Has a caregiver. Previous smoker Physical examination: VITAL SIGNS: [97.6, 80, 16, 121/75, 94% room air GENERAL: BMI 17.4, loss of subcutaneous fat, thin built anxious. EYES: [Pupils equal. Conjunctiva katie]l. HEENT: [External appearance of nose and ears normal, oral cavity grossly katie l]. NECK: [JVD not raised; masses not palpable]. HEART: [First and second heart sounds are normal; no edema]. LUNGS:[ Respiratory rate normal; decreased breath sounds]. ABDOMEN: [Soft, nontender, liver spleen not palpable, no masses palpable]. PSYCH: [He knows her name, cannot tell where she is. She thinks the season is spring l. MUSCULOSKELETAL: Loss of muscle mass subcutaneous fat. Prominent bones. OA. Tremors t NEUROLOGICAL: [Cranial nerves grossly intact; no facial asymmetry, power and sensation grossly intact]. LYMPHATICS: [No lymph nodes palpable in the axilla and neck] INVESTIGATIONS, reviewed in the clinical context: February 23: White count 3.9 hemoglobin 14.8 platelets 137 sodium 138 potassium 3.7 BUN 24 creatinine 0.53 albumin 3.2 Chest x-ray film personally reviewed by me-hyperinflation Assessment plan: -Syncope likely from hypotension IV fluids Add midodrine -Severe protein calorie malnutrition. BMI 17.4 Ensure -Chronic gait dysfunction uses a walker at baseline -Moderate to severe Alzheimer's dementia -Full code Will have pillowcase turner look into POA guardianship. As patient not capable of taking her decisions Past Medical History Past Medical History: Atrial Fibrillation, Dementia, Hyperlipidemia, Hypertension History of Any Multi-Drug Resistant Organisms: None Reported Past Surgical History: Hysterectomy, Orthopedic Surgery, Tubal Ligation Past Anesthesia/Blood Transfusion Reactions: No Reported Reaction Past Psychological History: No Psychological Hx Reported Smoking Status: Former smoker Past Alcohol Use History: None Reported Past Drug Use History: None Reported - Past Family History family Family Medical History: No Reported History Additional Family Medical History / Comment(s): the patient does report that her mother had a tremor Medications and Allergies Home Medications Medication Instructions Recorded Confirmed Type No Known Home Medications 02/24/24 02/24/24 History Allergies Allergy/AdvReac Type Severity Reaction Status Date / Time No Known Allergies Allergy Verified 02/24/24 15:33 Physical Exam Vitals: Vital Signs Temp Pulse Resp BP BP BP Pulse Ox 02/24/24 16:46 18 102/78 93/68 97 02/24/24 15:11 81 16 90/54 96 02/24/24 13:40 97.6 F 71 18 107/72 99 Intake and Output 02/24/24 02/24/24 02/24/24 06:59 14:59 22:59 Other: Weight 43.091 kg Results CBC & Chem 7: 02/24/24 14:55 02/24/24 14:55 Labs: Abnormal Lab Results - Last 24 Hours (Table) 02/24/24 02/24/24 Range/Units 14:55 14:55 Hct 46.1 H (34.0-46.0) % Plt Count 137 L (150-450) k/uL Lymphocytes # 0.7 L (1.0-4.8) k/uL Chloride 110 H (98-107) mmol/L Carbon Dioxide 19 L (22-30) mmol/L BUN 24 H (7-17) mg/dL Glucose 110 H (74-99) mg/dL Total Protein 5.7 L (6.3-8.2) g/dL Albumin 3.2 L (3.5-5.0) g/dL
[2024-02-24] MEDS: ENOXAPARIN 40 MG/0.4 ML SYRINGE SQ SCH (21:21)
[2024-02-25 00:41] LABS: Appearance,Urine Cloudy (Clear); Bacteria,Urine Many /hpf; Bilirubin,Urine Negative (Negative); Blood,Urine Small (Negative); Color,Urine Yellow; Glucose,Urine (UA) Negative (Negative); Ketones,Urine Negative (Negative); Leukocyte Esterase,Urine Large (Negative); Mucus,Urine Rare /hpf; Nitrite,Urine Positive (Negative); PH, Urine 5.5 (5.0-8.0); Protein,Urine Trace (Negative); RBC,Urine 2 /hpf (0-5); Specific Gravity,Urine 1.016 (1.001-1.035); Squamous Epithelial Cell,Urine 2 /hpf (0-4); Urobilinogen,Urine <2.0 mg/dL (<2.0); WBC,Urine 22 /hpf (0-5)
[2024-02-25 08:47] LABS: Basophils # (A) 0.02 X 10*3/uL (0.00-0.10); Basophils % (A) 0.5 %; Eosinophils # (A) 0 X 10*3/uL (0.04-0.35); Eosinophils % (A) 0 %; HCT 46.2 % (37.2-46.3); HGB 14.6 g/dL (12.0-15.0); Lymphocytes # (A) 0.75 X 10*3/uL (0.90-5.00); Lymphocytes % (A) 18.2 %; MCH 29.6 pg (27.0-32.0); MCHC 31.6 g/dL (32.0-37.0); MCV 93.7 FL (80.0-97.0); Mean Platelet Volume 10.3 FL (9.5-12.2); Monocytes # (A) 0.58 X 10*3/uL (0.20-1.00); Monocytes % (A) 14.1 %; NRBC Per 100 WBC 0 X 10*3/uL (0.00-0.01); Neutrophils # (A) 2.75 X 10*3/uL (1.80-7.70); Platelet Count 148 X 10*3/uL (140-440); RBC 4.93 X 10*6/uL (4.10-5.20); RDW 14.2 % (11.5-14.5); WBC 4.11 X 10*3/uL (4.50-10.00)
[2024-02-25 09:11] LABS: Blood Urea Nitrogen 18.5 mg/dL (9.0-27.0); Calcium 8.6 mg/dL (8.7-10.3); Chloride 108 mmol/L (96-109); Glucose 94 mg/dL (70-110); Potassium 3.9 mmol/L (3.5-5.5); Sodium 142 mmol/L (135-145)
[2024-02-25 11:13] VITALS: BMI 17.4
[2024-02-25] MEDS: CEPHALEXIN 250 MG CAP PO SCH (11:18)
[2024-02-25] MEDS: MIDODRINE 5 MG TAB PO SCH (11:19)
[2024-02-25] MEDS: PRIMIDONE 25 MG TAB PO SCH (11:19)
--- NOTE | 2024-02-25 11:29 | P.CRDCN ---
History of Present Illness History of present illness: HISTORY OF PRESENT ILLNESS: This is a 83-year-old female with a past medical history significant for sick sinus syndrome and atrial flutter. Patient used to follow in the office with Dr. Crandall but has not been seen since December 2020. We have been asked to see the patient in consultation for syncope. Patient examined at the bedside. Patient is a poor historian and is unable to provide any significant history at the time of examination. There is no family present. The patient apparently had an episode of syncope after using the restroom. Patient appears to be resting comfortably in bed. Vital signs are stable. DIAGNOSTICS: - EKG reveals atrial flutter with controlled ventricular rate - Chest xray negative for acute process - Laboratory data: Troponin 0.023. 0.084. 0.107. - Current home cardiac medications include none - Most recent echocardiogram obtained in October 2020 revealed ejection fraction 55 to 60%, trace to mild MR, trace TR REVIEW OF SYSTEMS: At the time of my exam: Able to obtain review of systems secondary to AMS/lethargy PHYSICAL EXAM: VITAL SIGNS: Reviewed. GENERAL: Well-developed in no acute distress. HEENT: Head is normocephalic. Pupils are equal, round. Sclerae anicteric. Mucous membranes of the mouth are moist. Neck supple. No JVD or thyromegaly LUNGS: Respirations even and unlabored. Lungs essentially clear to auscultation bilaterally. HEART: Irregular rate and rhythm. S1 and S2 heard. ABDOMEN: Soft. Nondistended. Nontender. EXTREMITIES: Normal range of motion. No clubbing or cyanosis. Peripheral pulses intact. No lower extremity edema NEUROLOGIC: Awake and alert. ASSESSMENT: Syncope Elevated troponins of unclear significance, no evidence of ACS Persistent atrial flutter, not anticoagulated for unknown reason Sick sinus syndrome PLAN: Patient started on Midodrine per primary medicine Continue telemetry monitoring Continue with medical management. No plans for further invasive cardiac workup Patient refused echo We will sign off. Please reconsult if needed Nurse practitioner note has been reviewed by physician. Signing provider agrees with the documented findings, assessment, and plan of care documented by TOOLER as a scribe. Past Medical History Past Medical History: Atrial Fibrillation, Dementia, Hyperlipidemia, Hypertension Additional Past Medical History / Comment(s): tremors History of Any Multi-Drug Resistant Organisms: None Reported Past Surgical History: Hysterectomy, Orthopedic Surgery, Tubal Ligation Past Anesthesia/Blood Transfusion Reactions: No Reported Reaction Past Psychological History: No Psychological Hx Reported Smoking Status: Former smoker Past Alcohol Use History: None Reported Past Drug Use History: None Reported - Past Family History family Family Medical History: No Reported History Additional Family Medical History / Comment(s): the patient does report that her mother had a tremor Medications and Allergies Home Medications Medication Instructions Recorded Confirmed Type No Known Home Medications 02/24/24 02/24/24 History Allergies Allergy/AdvReac Type Severity Reaction Status Date / Time No Known Allergies Allergy Verified 02/24/24 15:33 Physical Exam Vitals: Vital Signs Temp Pulse Pulse Resp BP BP BP 02/25/24 07:10 98.4 F 73 17 103/65 02/25/24 02:48 99.3 F 75 18 115/69 02/24/24 22:31 83 02/24/24 21:51 99.6 F 83 19 117/75 02/24/24 21:22 84 18 147/79 02/24/24 20:30 80 16 121/75 02/24/24 16:46 18 102/78 02/24/24 15:11 81 16 90/54 02/24/24 13:40 97.6 F 71 18 107/72 BP Pulse Ox 02/25/24 07:10 98 02/25/24 02:48 95 02/24/24 22:31 02/24/24 21:51 95 02/24/24 21:22 94 L 02/24/24 20:30 94 L 02/24/24 16:46 93/68 97 02/24/24 15:11 96 02/24/24 13:40 99 Intake and Output 02/24/24 02/25/24 02/25/24 22:59 06:59 14:59 Output Total 650 Balance -650 Output: Urine 650 Other: Voiding Method External Catheter Weight 43.091 kg 43.091 kg Results 02/25/24 03:14 02/25/24 03:14 Cardiac Enzymes 02/24/24 02/24/24 02/24/24 Range/Units 14:55 14:55 21:07 AST 23 (14-36) U/L Troponin I 0.023 0.084 H* (0.000-0.034) ng/mL 02/25/24 Range/Units 00:00 AST (14-36) U/L Troponin I 0.107 H* (0.000-0.034) ng/mL Coagulation 02/24/24 Range/Units 14:55 PT 11.0 (10.0-12.5) sec APTT 25.7 (22.0-30.0) sec CBC 02/24/24 02/25/24 Range/Units 14:55 03:14 WBC 3.9 4.11 L (3.8-10.6) k/uL RBC 4.98 4.93 (3.80-5.40) m/uL Hgb 14.8 14.6 (11.4-16.0) gm/dL Hct 46.1 H 46.2 (34.0-46.0) % Plt Count 137 L 148 (150-450) k/uL Comprehensive Metabolic Panel 02/24/24 02/25/24 Range/Units 14:55 03:14 Sodium 138 142 (137-145) mmol/L Potassium 3.7 3.9 (3.5-5.1) mmol/L Chloride 110 H 108 (98-107) mmol/L Carbon Dioxide 19 L 25.0 (22-30) mmol/L BUN 24 H 18.5 (7-17) mg/dL Creatinine 0.53 0.5 L (0.52-1.04) mg/dL Glucose 110 H 94 (74-99) mg/dL Calcium 9.0 8.6 L (8.4-10.2) mg/dL AST 23 (14-36) U/L ALT 12 (4-34) U/L Alkaline Phosphatase 89 (38-126) U/L Total Protein 5.7 L (6.3-8.2) g/dL Albumin 3.2 L (3.5-5.0) g/dL Current Medications Generic Name Dose Route Start Last Admin Trade Name Freq PRN Reason Stop Dose Admin Cephalexin 250 mg 02/25/24 10:00 02/25/24 11:18 Cephalexin 250 Mg Cap PO 250 mg QID TIMI Administration Protocol Enoxaparin Sodium 40 mg 02/24/24 21:15 02/25/24 11:20 Enoxaparin 40 Mg/0.4 Ml Syringe SQ Not Given DAILY [facility] Sodium Chloride 1,000 mls @ 130 mls/hr 02/24/24 18:00 02/25/24 11:18 Saline 0.9% IV 130 mls/hr .[id number] TIIM Administration Midodrine 5 mg 02/25/24 07:30 02/25/24 11:19 Midodrine 5 Mg Tab PO Not Given AC-TID TIMI Naloxone HCl 0.2 mg 02/24/24 18:21 Naloxone 0.4 Mg/Ml 1 Ml Vial IV Q2M PRN Opioid Reversal Primidone 25 mg 02/25/24 10:15 02/25/24 11:19 Primidone 25 Mg Tab PO 25 mg TID TIMI Administration Intake and Output 02/24/24 02/25/24 02/25/24 22:59 06:59 14:59 Output Total 650 Balance -650 Output: Urine 650 Other: Voiding Method External Catheter Weight 43.091 kg 43.091 kg Patient Weight 02/26/24 06:59 Weight 43.091 kg 02/25/24 03:14 02/25/24 03:14
--- NOTE | 2024-02-25 17:59 | P.PN ---
Progress Note - Text Progress Note Date: 02/25/24 Chief Complaint: Syncope This is 83-year-old patient who presented to the ER. Most of the history was obtained from the ER physician Dr. Dawson. Patient had episode of syncope. Commission Specialist was present. Using the restroom. Patient passed out for couple of seconds. Patient does get lightheaded with standing up. Normally uses a walker. Has been getting very weak. States her appetite is okay. No fever no chills. Patient has been refusing to take her medications for some time. Does not really care to go to the doctors. February 24: Patient's son is the POA. Will add primidone 25 mg 3 times daily for patient's tremors. Keflex added for UTI. Patient refused echocardiogram. Troponin not of any clinical significance per cardiology. Active Medications Cephalexin (Cephalexin 250 Mg Cap) 250 mg PO QID [facility]; Protocol Last Admin: 02/25/24 15:01 Dose: 250 mg Enoxaparin Sodium (Enoxaparin 40 Mg/0.4 Ml Syringe) 40 mg SQ DAILY [facility] Last Admin: 02/25/24 11:20 Dose: Not Given Sodium Chloride (Saline 0.9%) 1,000 mls @ 130 mls/hr IV .Q7H42M [facility] Last Admin: 02/25/24 15:01 Dose: 130 mls/hr Midodrine (Midodrine 5 Mg Tab) 5 mg PO AC-TID [facility] Last Admin: 02/25/24 12:36 Dose: Not Given Naloxone HCl (Naloxone 0.4 Mg/Ml 1 Ml Vial) 0.2 mg IV Q2M PRN PRN Reason: Opioid Reversal Primidone (Primidone 25 Mg Tab) 25 mg PO TID [facility] Last Admin: 02/25/24 15:01 Dose: 25 mg Social history: Uses a walker. Has a caregiver. Previous smoker Physical examination: VITAL SIGNS: 97.6, 76, 16, 101 x 55, 95% room air GENERAL: BMI 17.4, loss of subcutaneous fat, thin built anxious. EYES: Pupils equal. Conjunctiva katie l. HEENT: External appearance of nose and ears normal, oral cavity grossly normal. NECK: JVD not raised; masses not palpable. HEART: First and second heart sounds are normal; no edema. LUNGS: Respiratory rate normal; decreased breath sounds. ABDOMEN: Soft, nontender, liver spleen not palpable, no masses palpable. PSYCH: [He knows her name, cannot tell where she is. She thinks the season is spring l. MUSCULOSKELETAL: Loss of muscle mass subcutaneous fat. Prominent bones. OA. Tremors t NEUROLOGICAL: Cranial nerves grossly intact; no facial asymmetry, power and sensation grossly intact. Tremors INVESTIGATIONS, reviewed in the clinical context: February 24: White count 4.1 hemoglobin 14.6 platelets 148 potassium 3.9 creatinine 0.5 UA positive for nitrate leukoesterase February 23: White count 3.9 hemoglobin 14.8 platelets 137 sodium 138 potassium 3.7 BUN 24 creatinine 0.53 albumin 3.2 Chest x-ray film personally reviewed by me-hyperinflation Assessment plan: -Syncope likely from hypotension IV fluids midodrine -Severe protein calorie malnutrition. BMI 17.4 Ensure -Chronic gait dysfunction uses a walker at baseline -Moderate to severe Alzheimer's dementia -Essential tremors. Patient had them for a long time. Add primidone 25 mg 3 times daily -Acute UTI Keflex -No code -Patient's son is the POA. Nurse informed me that they do have the paperwork. Primidone added. Keflex. Past Medical History Past Medical History: Atrial Fibrillation, Dementia, Hyperlipidemia, Hypertension History of Any Multi-Drug Resistant Organisms: None Reported Past Surgical History: Hysterectomy, Orthopedic Surgery, Tubal Ligation Past Anesthesia/Blood Transfusion Reactions: No Reported Reaction Past Psychological History: No Psychological Hx Reported Smoking Status: Former smoker Past Alcohol Use History: None Reported Past Drug Use History: None Reported
--- NOTE | 2024-02-26 18:54 | P.PN ---
Progress Note - Text Progress Note Date: 02/26/24 Chief Complaint: Syncope This is 83-year-old patient who presented to the ER. Most of the history was obtained from the ER physician Dr. Dawson. Patient had episode of syncope. Blanket Weaver was present. Using the restroom. Patient passed out for couple of seconds. Patient does get lightheaded with standing up. Normally uses a walker. Has been getting very weak. States her appetite is okay. No fever no chills. Patient has been refusing to take her medications for some time. Does not really care to go to the doctors. February 24: Patient's son is the POA. Will add primidone 25 mg 3 times daily for patient's tremors. Keflex added for UTI. Patient refused echocardiogram. Troponin not of any clinical significance per cardiology. February 25: Up in a recliner. Slight improvement in tremors. Eating well. Discussed with social sciences instructor Bryanna. Family is opted for rehab. Looking for the same. Note patient has been noncompliant with medication for a long time. Active Medications Cephalexin (Cephalexin 250 Mg Cap) 250 mg PO QID [facility]; Protocol Last Admin: 02/26/24 17:45 Dose: 250 mg Enoxaparin Sodium (Enoxaparin 40 Mg/0.4 Ml Syringe) 40 mg SQ DAILY [facility] Last Admin: 02/26/24 09:43 Dose: 40 mg Midodrine (Midodrine 5 Mg Tab) 5 mg PO AC-TID [facility] Last Admin: 02/26/24 17:45 Dose: 5 mg Naloxone HCl (Naloxone 0.4 Mg/Ml 1 Ml Vial) 0.2 mg IV Q2M PRN PRN Reason: Opioid Reversal Primidone (Primidone 25 Mg Tab) 25 mg PO TID [facility] Last Admin: 02/26/24 16:08 Dose: 25 mg Social history: Uses a walker. Has a caregiver. Previous smoker Physical examination: VITAL SIGNS: 98, 73, 18, 157 x 73, 98% room air GENERAL: BMI 17.4, loss of subcutaneous fat, thin built anxious. EYES: Pupils equal. Conjunctiva katie l. HEENT: External appearance of nose and ears normal, oral cavity grossly normal. NECK: JVD not raised; masses not palpable. HEART: First and second heart sounds are normal; no edema. LUNGS: Respiratory rate normal; decreased breath sounds. ABDOMEN: Soft, nontender, liver spleen not palpable, no masses palpable. PSYCH: knows her name, cannot tell where she is. She thinks the season is spring. MUSCULOSKELETAL: Loss of muscle mass subcutaneous fat. Prominent bones. OA. Tremors t NEUROLOGICAL: Cranial nerves grossly intact; no facial asymmetry, power and sensation grossly intact. Tremors INVESTIGATIONS, reviewed in the clinical context: February 25: White count 10.5 hemoglobin 8.4 platelets 320 potassium 4.7 creatinine 1.7 February 24: White count 4.1 hemoglobin 14.6 platelets 148 potassium 3.9 creatinine 0.5 UA positive for nitrate leukoesterase February 23: White count 3.9 hemoglobin 14.8 platelets 137 sodium 138 potassium 3.7 BUN 24 creatinine 0.53 albumin 3.2 Chest x-ray film personally reviewed by me-hyperinflation Assessment plan: -Syncope likely from hypotension IV fluids midodrine 5 mg 3 times daily -Severe protein calorie malnutrition. BMI 17.4 Ensure -Chronic gait dysfunction uses a walker at baseline -Moderate to severe Alzheimer's dementia -Essential tremors. Patient had them for a long time. Added primidone 25 mg 3 times daily -Medical debility. PT OT. -Acute UTI Keflex -No code Discussed with social sciences instructor. Looking into rehab placement. Past Medical History Past Medical History: Atrial Fibrillation, Dementia, Hyperlipidemia, Hypertension History of Any Multi-Drug Resistant Organisms: None Reported Past Surgical History: Hysterectomy, Orthopedic Surgery, Tubal Ligation Past Anesthesia/Blood Transfusion Reactions: No Reported Reaction Past Psychological History: No Psychological Hx Reported Smoking Status: Former smoker Past Alcohol Use History: None Reported Past Drug Use History: None Reported
[2024-02-27 07:54] VITALS: RESP 15
--- NOTE | 2024-02-27 13:05 | P.DS ---
Providers Date of admission: 02/24/24 18:22 Expected date of discharge: 02/27/24 Attending physician: Vishal Turner Primary care physician: Nano Roman MD Hospital Course: Chief Complaint: Syncope This is 83-year-old patient who presented to the ER. Most of the history was obtained from the ER physician Dr. Dawson. Patient had episode of syncope. Administrative Tech was present. Using the restroom. Patient passed out for couple of seconds. Patient does get lightheaded with standing up. Normally uses a walker. Has been getting very weak. States her appetite is okay. No fever no chills. Patient has been refusing to take her medications for some time. Does not really care to go to the doctors. February 24: Patient's son is the POA. Will add primidone 25 mg 3 times daily for patient's tremors. Keflex added for UTI. Patient refused echocardiogram. Troponin not of any clinical significance per cardiology. February 25: Up in a recliner. Slight improvement in tremors. Eating well. Disc ussed with social services Bryanna. Family is opted for rehab. Looking for the same. Note patient has been noncompliant with medication for a long time. February 26: Up in recliner. Comfortable. Tremors present. Patient has a bed at rehab. Social history: Uses a walker. Has a caregiver. Previous smoker Physical examination: VITAL SIGNS: 98.8, 57, 15, 132 x 78, 96% room air GENERAL: BMI 17.4, loss of subcutaneous fat, thin built anxious. EYES: Pupils equal. Conjunctiva katie l. HEENT: External appearance of nose and ears normal, oral cavity grossly normal. NECK: JVD not raised; masses not palpable. HEART: First and second heart sounds are normal; no edema. LUNGS: Respiratory rate normal; decreased breath sounds. ABDOMEN: Soft, nontender, liver spleen not palpable, no masses palpable. PSYCH: knows her name, cannot tell where she is. She thinks the season is spring l. MUSCULOSKELETAL: Loss of muscle mass subcutaneous fat. Prominent bones. OA. Tremors t NEUROLOGICAL: Cranial nerves grossly intact; no facial asymmetry, power and sensation grossly intact. Tremors INVESTIGATIONS, reviewed in the clinical context: February 25: White count 10.5 hemoglobin 8.4 platelets 320 potassium 4.7 creatinine 1.7 February 24: White count 4.1 hemoglobin 14.6 platelets 148 potassium 3.9 creatinine 0.5 UA positive for nitrate leukoesterase February 23: White count 3.9 hemoglobin 14.8 platelets 137 sodium 138 potassium 3.7 BUN 24 creatinine 0.53 albumin 3.2 Chest x-ray film personally reviewed by me-hyperinflation Assessment plan: -Syncope likely from hypotension IV fluids midodrine 5 mg 3 times daily -Severe protein calorie malnutrition. BMI 17.4 Ensure -Chronic gait dysfunction uses a walker at baseline -Moderate to severe Alzheimer's dementia -Troponinemia, not of any clinical significance. No ACS Seen by cardiology -Essential tremors. Patient had them for a long time. Added primidone 25 mg 3 times daily -Medical debility. PT OT. -Acute UTI Keflex -No code Disposition: [facility] Past Medical History Past Medical History: Atrial Fibrillation, Dementia, Hyperlipidemia, Hy pertension History of Any Multi-Drug Resistant Organisms: None Reported Past Surgical History: Hysterectomy, Orthopedic Surgery, Tubal Ligation Past Anesthesia/Blood Transfusion Reactions: No Reported Reaction Past Psychological History: No Psychological Hx Reported Smoking Status: Former smoker Past Alcohol Use History: None Reported Past Drug Use History: None Reported Plan - Discharge Summary Discharge Rx Participant: No New Discharge Prescriptions: New Cephalexin [Keflex] 250 mg PO QID #10 cap Primidone [Mysoline] 25 mg PO TID #90 tab Midodrine [ProAmatine] 5 mg PO AC-TID #90 tab Discharge Medication List Cephalexin [Keflex] 250 mg PO QID #10 cap 02/26/24 [Rx] Midodrine [ProAmatine] 5 mg PO AC-TID #90 tab 02/26/24 [Rx] Primidone [Mysoline] 25 mg PO TID #90 tab 02/26/24 [Rx] Follow up Appointment(s)/Referral(s): Home dr JOSE [Other] - 1 Week Patient Instructions/Handouts: Syncope (DC) Activity/Diet/Wound Care/Special Instructions: call [phone] for appointment
[2024-02-27 14:27] VITALS: BP 114/61; PULSE 69; TEMP 98.4
== END 2024-02-27 15:50 ==
LOC: EC 13:28 → 6NMEDSUR 18:22
PROVIDERS: ADMIT Hospitalist; ATTEND Hospitalist
DX: R55 Syncope and collapse (principal); R79.89 Other specified abnormal findings of blood chemistry; I49.5 Sick sinus syndrome; I48.92 Unspecified atrial flutter; I48.91 Unspecified atrial fibrillation; E78.5 Hyperlipidemia, unspecified; I10 Essential (primary) hypertension; R26.89 Other abnormalities of gait and mobility; G30.9 Alzheimer's disease, unspecified; F02.C0 Dementia in other diseases classified elsewhere, severe, without behavioral disturbance, psychotic disturbance, mood disturbance, and anxiety; N39.0 Urinary tract infection, site not specified; R54 Age-related physical debility; G25.0 Essential tremor; E43 Unspecified severe protein-calorie malnutrition; Z68.1 Body mass index [BMI] 19.9 or less, adult; Z87.891 Personal history of nicotine dependence; Z91.148 Patient's other noncompliance with medication regimen for other reason; Z79.899 Other long term (current) drug therapy
CPT/HCPCS: 96361 ×4; 96372 ×3; 96360; 99285; 36415; 93005; 97530; 97161; 97166; 80053; 80048; 84484 ×2; 85025 ×2; 85610; 85730; 81001; 71046; 93880; G0378 ×4; J1650 ×3

== ENCOUNTER 2025-02-14 10:52 | Inpatient (IN) | payer MEDICARE ==
--- NOTE | 2025-02-14 12:04 | ED ---
General Adult HPI - General Chief complaint: Weakness Stated complaint: Generalized weakness Time Seen by Provider: 02/14/25 11:03 Source: patient, family, EMS, RN notes reviewed Mode of arrival: EMS Limitations: no limitations - History of Present Illness Initial comments: This is an 84-year-old female presenting to the emergency department from assisted living facility for concerns of generalized weakness. Over the past few days patient has been having severe difficulty getting out of bed with weakness in her bilateral lower extremities and difficulty with ambulation as she normally uses a walker. She states that she has been having mild interm ittent abdominal discomfort. She denies chest pain, difficulty breathing fevers, chills, nausea, vomiting, headaches, neck pain. - Related Data Home Medications Medication Instructions Recorded Confirmed Ascorbic Acid [Vitamin C] 1,000 mg PO DAILY 02/14/25 02/14/25 Midodrine [ProAmatine] 5 mg PO TID 02/14/25 02/14/25 Multivitamins, Thera [Multivitamin 1 tab PO DAILY 02/14/25 02/14/25 (formulary)] Primidone 125 mg PO TID 02/14/25 02/14/25 Senna-Time 8.6mg 8.6 mg PO BID 02/14/25 02/14/25 Topiramate [Topamax] 50 mg PO HS 02/14/25 02/14/25 Allergies Allergy/AdvReac Type Severity Reaction Status Date / Time No Known Allergies Allergy Verified 02/14/25 16:44 Review of Systems ROS Statement: Those systems with pertinent positive or pertinent negative responses have been documented in the HPI. ROS Other: All systems not noted in ROS Statement are negative. Past Medical History Past Medical History: Atrial Fibrillation, Dementia, Hyperlipidemia, Hypertension Additional Past Medical History / Comment(s): tremors History of Any Multi-Drug Resistant Organisms: None Reported Past Surgical History: Hysterectomy, Orthopedic Surgery, Tubal Ligation Past Anesthesia/Blood Transfusion Reactions: No Reported Reaction Past Psychological History: No Psychological Hx Reported Smoking Status: Former smoker Past Alcohol Use History: None Reported Past Drug Use History: None Reported - Past Family History family Family Medical History: No Reported History Additional Family Medical History / Comment(s): the patient does report that her mother had a tremor General Exam Limitations: no limitations Neck exam: Present: normal inspection. Absent: tenderness, meningismus, lymphadenopathy Respiratory exam: Present: normal lung sounds bilaterally. Absent: respiratory distress, wheezes, rales, rhonchi, stridor Cardiovascular Exam: Present: regular rate, normal rhythm, normal heart sounds. Absent: systolic murmur, diastolic murmur, rubs, gallop, clicks GI/Abdominal exam: Present: soft, normal bowel sounds. Absent: distended, tenderness, guarding, rebound, rigid Extremities exam: Present: normal inspection, full ROM, normal capillary refill. Absent: tenderness, pedal edema, joint swelling, calf tenderness Back exam: Present: normal inspection Neurological exam: Present: alert, oriented X3, CN II-XII intact Course Vital Signs 02/14/25 02/14/25 10:54 13:13 Temperature 98.1 F Pulse Rate 82 66 Respiratory 16 18 Rate Blood Pressure 141/75 154/81 O2 Sat by Pulse 95 93 L Oximetry Medical Decision Making - Medical Decision Making Was pt. sent in by a medical professional or institution (, PA, TRAINING ASSISTANT, urgent care, hospital, or prison...) When possible be specific @ -No Did you speak to anyone other than the patient for history (EMS, parent, family, police, friend...)? What history was obtained from this source @ -No Did you review nursing and triage notes (agree or disagree)? Why? @ -I reviewed and agree with nursing and triage notes Were old charts reviewed (outside hosp., previous admission, EMS record, old EKG, old radiological studies, urgent care reports/EKG's, prison records)? Report findings @ -No old charts were reviewed Differential Diagnosis (chest pain, altered mental status, abdominal pain women, abdominal pain men, vaginal bleeding, weakness, fever, dyspnea, syncope, headache, dizziness, GI bleed, back pain, seizure, CVA, palpatations, mental health, musculoskeletal)? @ -Differential Weakness: Hypoglycemia, shock, sepsis, hyponatremia, anemia, infection, AK, ETOH, adverse medicine reaction, overdose, stroke, this is not meant to be an all-inclusive list. EKG interpreted by me (3pts min.). @ -Completed at 1104 sinus rhythm with noted occasional PVCs, ventricular to 72, DE interval 191, QRS 86, QT 370, QTc 394. X-rays interpreted by me (1pt min.). @ -Chest x-ray reveals bibasilar opacities with no evidence of focal c onsolidation. CT interpreted by me (1pt min.). @ -CT imaging of the brain without contrast reveals no acute intracranial process with age-related cerebral atrophy. U/S interpreted by me (1pt. min.). @ -None done What testing was considered but not performed or refused? (CT, X-rays, U/S, labs)? Why? @ -None What meds were considered but not given or refused? Why? @ -None Did you discuss the management of the patient with other professionals (professionals i.e. , PA, TRAINING ASSISTANT, lab, RT, psych nurse, social media project manager, outsole cementer, teacher, forest fire control officer, immigration case manager)? Give summary @ -I spoke with Dr. Turner, was agreed to meet the patient for generalized weakness and urinary tract infection. Was smoking cessation discussed for >3mins.? @ -No Was critical care preformed (if so, how long)? @ -No Were there social determinants of health that impacted care today? How? (Homelessness, low income, unemployed, alcoholism, drug addiction, transportati on, low edu. Level, literacy, decrease access to med. care, correction, rehab)? @ -No Was there de-escalation of care discussed even if they declined (Discuss DNR or withdrawal of care, Hospice)? DNR status @ -No What co-morbidities impacted this encounter? (DM, HTN, Smoking, COPD, CAD, Cancer, CVA, ARF, Chemo, Hep., AIDS, mental health diagnosis, sleep apnea, morbid obesity)? @ -None Was patient admitted / discharged? Hospital course, mention meds given and route, prescriptions, significant lab abnormalities, going to OR and other pertinent info. @ -Admitted. 84-year-old female presented for generalized weakness. Patient initial vitals are stable. Neurological examination is relatively unremarkable however patient has generalized weakness of bilateral lower extremities as she is only unable to hold up her legs for a few moments of the bed without feeling fatigued. She appears clinically dry on examination is provided with IV fluids. CBC, coagulation is unremarkable. Troponin is not detected. Patient has mild transaminitis. Urinalysis concerning for infection with positive nitrates, large leukocytes, white cells and white cell clumps. Patient will be admitted for generalized weakness and urinary tract infection started on Rocephin. Urine culture orders placed. Case discussed with my attending Dr. Drake. Consults to occupational therapy and physical therapy are placed as well. Undiagnosed new problem with uncertain prognosis? @ -No Drug Therapy requiring intensive monitoring for toxicity (Heparin, Nitro, Insulin, Cardizem)? @ -No Were any procedures done? @ -No Diagnosis/symptom? @ -Generalized weakness, urinary tract infection Acute, or Chronic, or Acute on Chronic? @ -Acute Uncomplicated (without systemic symptoms) or Complicated (systemic symptoms)? @ -Complicated Side effects of treatment? @ -No Exacerbation, Progression, or Severe Exacerbation? @ -No Poses a threat to life or bodily function? How? (Chest pain, USA, AK, pneumonia, PE, COPD, DKA, ARF, appy, cholecystitis, CVA, Diverticulitis, Homicidal, Suicidal, threat to staff... and all critical care pts) @ -No - Lab Data Result diagrams: 02/14/25 12:12 02/14/25 12:12 Lab Results 02/14/25 02/14/25 02/14/25 Range/Units 12:12 12:12 12:12 WBC 9.49 (4.50-10.00) 10*3/uL RBC 4.54 (4.10-5.20) 10*6/uL Hgb 14.9 (12.0-15.0) g/dL Hct 44.1 (37.2-46.3) % MCV 97.1 H (80.0-97.0) fL MCH 32.8 H (27.0-32.0) pg MCHC 33.8 (32.0-37.0) g/dL Plt Count 162 (140-440) 10*3/uL MPV 9.7 (9.5-12.2) fL Immature Gran % (Auto) 0.2 % Neutrophils % 83.6 % Lymphocytes % 6.8 % Monocytes % 9.1 % Eosinophils % 0.0 % Basophils % 0.3 % Immature Gran # 0.02 (0.00-0.04) 10*3/uL Neutrophils # 7.93 H (1.80-7.70) 10*3/uL Lymphocytes # 0.65 L (0.90-5.00) 10*3/uL Monocytes # 0.86 (0.20-1.00) 10*3/uL Eosinophils # 0.00 L (0.04-0.35) 10*3/uL Basophils # 0.03 (0.00-0.10) 10*3/uL PT 11.0 (10.0-12.5) sec INR 1.0 (<1.2) APTT 24.3 (22.0-30.0) sec Sodium 139 (137-145) mmol/L Potassium 3.9 (3.5-5.1) mmol/L Chloride 106 (98-107) mmol/L Carbon Dioxide 22 (22-30) mmol/L Anion Gap 11 mmol/L BUN 19 H (7-17) mg/dL Creatinine 0.45 L (0.52-1.04) mg/dL Est GFR (CKD-EPI)AfAm >90 (>60 ml/min/1.73 sqM) Est GFR (CKD-EPI)NonAf >90 (>60 ml/min/1.73 sqM) Glucose 147 H (74-99) mg/dL Plasma Lactic Acid Porter (0.7-2.0) mmol/L Calcium 10.1 (8.4-10.2) mg/dL Phosphorus 2.2 L (2.5-4.5) mg/dL Magnesium 2.0 (1.6-2.3) mg/dL Total Bilirubin 1.0 (0.2-1.3) mg/dL AST 49 H (14-36) U/L ALT 92 H (4-34) U/L Alkaline Phosphatase 134 H (38-126) U/L Troponin I (0.000-0.034) ng/mL Total Protein 6.2 L (6.3-8.2) g/dL Albumin 3.6 (3.5-5.0) g/dL Urine Color Urine Appearance (Clear) Urine pH (5.0-8.0) Ur Specific [place] (1.001-1.035) Urine Protein (Negative) Urine Glucose (UA) (Negative) Urine Ketones (Negative) Urine Blood (Negative) Urine Nitrite (Negative) Urine Bilirubin (Negative) Urine Urobilinogen (<2.0) mg/dL Ur Leukocyte Esterase (Negative) Urine RBC (0-5) /hpf Urine WBC (0-5) /hpf Urine WBC Clumps (None) /hpf Ur Squamous Epith Cells (0-4) /hpf Urine Bacteria (None) /hpf Urine Mucus (None) /hpf 02/14/25 02/14/25 02/14/25 Range/Units 12:12 12:12 14:55 WBC (4.50-10.00) 10*3/uL RBC (4.10-5.20) 10*6/uL Hgb (12.0-15.0) g/dL Hct (37.2-46.3) % MCV (80.0-97.0) fL MCH (27.0-32.0) pg MCHC (32.0-37.0) g/dL Plt Count (140-440) 10*3/uL MPV (9.5-12.2) fL Immature Gran % (Auto) % Neutrophils % % Lymphocytes % % Monocytes % % Eosinophils % % Basophils % % Immature Gran # (0.00-0.04) 10*3/uL Neutrophils # (1.80-7.70) 10*3/uL Lymphocytes # (0.90-5.00) 10*3/uL Monocytes # (0.20-1.00) 10*3/uL Eosinophils # (0.04-0.35) 10*3/uL Basophils # (0.00-0.10) 10*3/uL PT (10.0-12.5) sec INR (<1.2) APTT (22.0-30.0) sec Sodium (137-145) mmol/L Potassium (3.5-5.1) mmol/L Chloride (98-107) mmol/L Carbon Dioxide (22-30) mmol/L Anion Gap mmol/L BUN (7-17) mg/dL Creatinine (0.52-1.04) mg/dL Est GFR (CKD-EPI)AfAm (>60 ml/min/1.73 sqM) Est GFR (CKD-EPI)NonAf (>60 ml/min/1.73 sqM) Glucose (74-99) mg/dL Plasma Lactic Acid Porter 1.5 (0.7-2.0) mmol/L Calcium (8.4-10.2) mg/dL Phosphorus (2.5-4.5) mg/dL Magnesium (1.6-2.3) mg/dL Total Bilirubin (0.2-1.3) mg/dL AST (14-36) U/L ALT (4-34) U/L Alkaline Phosphatase (38-126) U/L Troponin I 0.020 (0.000-0.034) ng/mL Total Protein (6.3-8.2) g/dL Albumin (3.5-5.0) g/dL Urine Color Colorless Urine Appearance Cloudy H (Clear) Urine pH 6.5 (5.0-8.0) Ur Specific [place] 1.012 (1.001-1.035) Urine Protein Negative (Negative) Urine Glucose (UA) Negative (Negative) Urine Ketones Negative (Negative) Urine Blood Negative (Negative) Urine Nitrite Positive H (Negative) Urine Bilirubin Negative (Negative) Urine Urobilinogen <2.0 (<2.0) mg/dL Ur Leukocyte Esterase Large H (Negative) Urine RBC 1 (0-5) /hpf Urine WBC 32 H (0-5) /hpf Urine WBC Clumps Rare H (None) /hpf Ur Squamous Epith Cells <1 (0-4) /hpf Urine Bacteria Rare H (None) /hpf Urine Mucus Rare H (None) /hpf Disposition Clinical Impression: Muscle weakness (generalized), UTI (urinary tract infection) Disposition: ADMITTED IP TO THIS [facility] Condition: Stable Referrals: Juan Thompson MD [Medical Doctor] - 1-2 days Decision to Admit Reason: Admit from EC Decision Date: 02/14/25 Decision Time: 16:05
[2025-02-14 12:21] LABS: Basophils # (A) 0.03 10*3/uL (0.00-0.10); Basophils % (A) 0.3 %; Eosinophils # (A) 0.00 10*3/uL (0.04-0.35); Eosinophils % (A) 0.0 %; HCT 44.1 % (37.2-46.3); HGB 14.9 g/dL (12.0-15.0); Lymphocytes # (A) 0.65 10*3/uL (0.90-5.00); Lymphocytes % (A) 6.8 %; MCH 32.8 pg (27.0-32.0); MCHC 33.8 g/dL (32.0-37.0); MCV 97.1 fL (80.0-97.0); Monocytes # (A) 0.86 10*3/uL (0.20-1.00); Monocytes % (A) 9.1 %; Neutrophils # (A) 7.93 10*3/uL (1.80-7.70); Neutrophils % (A) 83.6 %; Platelet Count 162 10*3/uL (140-440); RBC 4.54 10*6/uL (4.10-5.20); RDW 13.8 % (11.5-14.5); WBC 9.49 10*3/uL (4.50-10.00)
[2025-02-14 12:30] LABS: ALT 92 U/L (4-34); AST 49 U/L (14-36); African American GFR (CKD) >90 (>60 ml/min/1.73 sqM); Albumin 3.6 g/dL (3.5-5.0); Alkaline Phosphatase 134 U/L (38-126); Anion Gap 11 mmol/L; Blood Urea Nitrogen 19 mg/dL (7-17); Calcium 10.1 mg/dL (8.4-10.2); Carbon Dioxide 22 mmol/L (22-30); Chloride 106 mmol/L (98-107); Glucose 147 mg/dL (74-99); Magnesium 2.0 mg/dL (1.6-2.3); Non-African American GFR(CKD) >90 (>60 ml/min/1.73 sqM); Potassium 3.9 mmol/L (3.5-5.1); Sodium 139 mmol/L (137-145); Total Protein 6.2 g/dL (6.3-8.2)
[2025-02-14 12:34] LABS: INR 1.0 (<1.2); Partial Thromboplastin Time 24.3 sec (22.0-30.0); Prothrombin Time 11.0 sec (10.0-12.5)
--- NOTE | 2025-02-14 12:41 | XR ---
EXAMINATION TYPE: XR chest 2V DATE OF EXAM: 02/14/2025 12:32 PM COMPARISON: Chest radiographs from 02/24/2024 TECHNIQUE: XR chest 2V Frontal and lateral views of the chest. CLINICAL INDICATION:Female, 84 years old with history of Weakness; FINDINGS: Lungs/Pleura: There is no evidence of pleural effusion or pneumothorax. Bibasilar airspace opacities better appreciated on the lateral view. Elevation of the right hemidiaphragm. Pulmonary vascularity: Unremarkable. Heart/mediastinum: Cardiomediastinal silhouette is enlarged and stable. Atherosclerotic calcificatio ns are seen in the aorta. Musculoskeletal: Multiple level degenerative disc disease changes seen throughout the spine. IMPRESSION: Bibasilar airspace opacities concerning for pneumonia versus atelectasis. [facility], , 02/14/2025 12:39 PM
--- NOTE | 2025-02-14 12:48 | CT ---
EXAMINATION TYPE: CT brain wo con CT DLP: 1111.9 mGycm, Automated exposure control for dose reduction was used. DATE OF EXAM: 02/14/2025 12:29 PM COMPARISON: CT brain 12/03/2020, MRI brain 01/28/2021 CLINICAL INDICATION:Female, 84 years old with history of weakness, Weakness. TECHNIQUE: Brain: Multiple axial CT images of the brain were obtained without IV contrast. . Coronal and sagitta l reformats reviewed. FINDINGS: Brain: Extra-axial spaces: No abnormal extra-axial fluid collections. Ventricular system: Dilatation in proportion to cerebral atrophy. Cerebral parenchyma: Cerebral atrophy. No acute intraparenchymal hemorrhage or mass effect. The quinn -white junction is well differentiated. Scattered hypoattenuating areas are seen within the periventr icular white matter. Cerebellum: Unremarkable. Mass effect: No evidence of midline shift. Intracranial vasculature: Atherosclerotic calcifications of the intracranial vessels. Soft tissues: Normal. Calvarium/osseous structures: No depressed skull fracture. Paranasal sinuses and mastoid air cells: Clear Visualized orbits: Left aphakia IMPRESSION: 1. No acute intracranial process. 2. Age-related cerebral atrophy with nonspecific white matter changes, likely secondary to chronic sm all vessel ischemic disease. [facility], , 02/14/2025 12:46 PM
[2025-02-14] MEDS: SODIUM CHLORIDE 0.9% 1,000 ML IV ONE (12:59)
[2025-02-14 15:14] LABS: Bacteria,Urine Rare /hpf; Bilirubin,Urine Negative (Negative); Blood,Urine Negative (Negative); Color,Urine Colorless; Glucose,Urine (UA) Negative (Negative); Ketones,Urine Negative (Negative); Leukocyte Esterase,Urine Large (Negative); Mucus,Urine Rare /hpf; Nitrite,Urine Positive (Negative); PH, Urine 6.5 (5.0-8.0); Protein,Urine Negative (Negative); RBC,Urine 1 /hpf (0-5); Specific Gravity,Urine 1.012 (1.001-1.035); Squamous Epithelial Cell,Urine <1 /hpf (0-4); Urobilinogen,Urine <2.0 mg/dL (<2.0); WBC,Urine 32 /hpf (0-5)
[2025-02-14] MEDS ORDERED: NALOXONE 0.4 MG/ML 1 ML VIAL IV PRN (16:04)
[2025-02-14] MEDS: cefTRIAXone IN SWFI 1,000 MG/10 ML SYRINGE IVP STA (16:53)
[2025-02-14] MEDS: SODIUM CHLORIDE 0.9% 1,000 ML IV SCH (16:56)
[2025-02-14] MEDS: PRIMIDONE 250 MG TAB PO SCH (20:19)
[2025-02-14] MEDS: TOPIRAMATE 25 MG TAB PO SCH (20:19)
--- NOTE | 2025-02-14 23:04 | P.HPIM ---
History of Present Illness H&P Date: 02/14/25 Chief Complaint: Feeling weak This is 84-year-old patient presents to the ER. Chronic medical conditions include gait dysfunction, cognitive impairment. Patient states that for the last 2 days she is feeling really weak. Not really able to get out of bed. Decreased appetite. She lives in assisted living. Does have baseline tremors. Also complaining of some trouble discomfort with urination. Denies any fever chills or shortness of breath. Tired Review of systems: GEN.: Tired EYES: None HEENT: None NECK: None RESPIRATORY: None CARDIOVASCULAR: None GASTROINTESTINAL: None GENITOURINARY: Dysuria and frequency of urination MUSCULOSKELETAL: Pain in the joints LYMPHATICS: None HEMATOLOGICAL: Tremors PSYCHIATRY: Forgetful] NEUROLOGICAL: Does use a walker Social history: Uses a walker. Has a caregiver. Previous smoker. Assisted living Physical examination: VITAL SIGNS: 98.7, 81, 16, 136 x 33, 92% room air GENERAL: BMI 17.4, loss of subcutaneous fat, thin built EYES: Pupils equal. Conjunctiva katie l. HEENT: External appearance of nose and ears normal, oral cavity grossly normal. NECK: JVD not raised; masses not palpable. HEART: First and second heart sounds are normal; no edema. LUNGS: Respiratory rate normal; decreased breath sounds. ABDOMEN: Soft, nontender, liver spleen not palpable, no masses palpable. PSYCH: Able to answer simple question l. MUSCULOSKELETAL: Loss of muscle mass subcutaneous fat. Prominent bones. OA. NEUROLOGICAL: Cranial nerves grossly intact; no facial asymmetry, power and sensation grossly intact. Tremors LYMPHATICS: No lymph nodes palpable in the axilla and neck INVESTIGATIONS, reviewed in the clinical context: February 14: White count 10.4 hemoglobin 14.9 platelets 162 sodium 139 potassium 3.9 BUN 19 creatinine 0.45 UA positive for nitrate, leukoesterase, WBC 32 EKG tracing personally reviewed by me-2 to 1 block Chest x-ray film personally reviewed by me-possible infiltrates at the bases CT brain age-related atrophy Assessment plan: - Acute medical asthenia. At baseline patient able to use a walker. For 2 days unable to get up. Likely from underlying UTI. PT OT - Acute UTI IV ceftriaxone -Moderate-severe protein calorie malnutrition. Recheck BMI Ensure. 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 Chronic primidone 25 mg 3 times daily -Medical debility. PT OT. -No code Past Medical History Past Medical History: Atrial Fibrillation, Dementia, Hyperlipidemia, Hypertension Additional Past Medical History / Comment(s): tremors History of Any Multi-Drug Resistant Organisms: None Reported Past Surgical History: Hysterectomy, Orthopedic Surgery, Tubal Ligation Past Anesthesia/Blood Transfusion Reactions: No Reported Reaction Past Psychological History: No Psychological Hx Reported Smoking Status: Former smoker Past Alcohol Use History: None Reported Past Drug Use History: None Reported - Past Family History family Family Medical History: No Reported History Additional Family Medical History / Comment(s): the patient does report that her mother had a tremor Medications and Allergies Home Medications Medication Instructions Recorded Confirmed Type Ascorbic Acid [Vitamin C] 1,000 mg PO DAILY 02/14/25 02/14/25 History Midodrine [ProAmatine] 5 mg PO TID 02/14/25 02/14/25 History Multivitamins, Thera [Multivitamin 1 tab PO DAILY 02/14/25 02/14/25 History (formulary)] Primidone 125 mg PO TID 02/14/25 02/14/25 History Senna-Time 8.6mg 8.6 mg PO BID 02/14/25 02/14/25 History Topiramate [Topamax] 50 mg PO HS 02/14/25 02/14/25 History Allergies Allergy/AdvReac Type Severity Reaction Status Date / Time No Known Allergies Allergy Verified 02/14/25 16:44 Physical Exam Vitals: Vital Signs Temp Pulse Pulse Resp BP BP Pulse Ox 02/14/25 19:11 98.7 F 81 16 136/73 92 L 02/14/25 17:41 99.2 F 76 17 145/73 93 L 02/14/25 17:20 76 17 02/14/25 17:00 81 17 129/76 95 02/14/25 13:13 66 18 154/81 93 L 02/14/25 10:54 98.1 F 82 16 141/75 95 Intake and Output 02/14/25 02/14/25 02/14/25 06:59 14:59 22:59 Other: Voiding Method Diaper External Catheter # Voids 1 Weight 68.039 kg 68.039 kg Results CBC & Chem 7: 02/14/25 12:12 02/14/25 12:12 Labs: Abnormal Lab Results - Last 24 Hours (Table) 02/14/25 02/14/25 02/14/25 Range/Units 12:12 12:12 14:55 MCV 97.1 H (80.0-97.0) fL MCH 32.8 H (27.0-32.0) pg Neutrophils # 7.93 H (1.80-7.70) 10*3/uL Lymphocytes # 0.65 L (0.90-5.00) 10*3/uL Eosinophils # 0.00 L (0.04-0.35) 10*3/uL BUN 19 H (7-17) mg/dL Creatinine 0.45 L (0.52-1.04) mg/dL Glucose 147 H (74-99) mg/dL Phosphorus 2.2 L (2.5-4.5) mg/dL AST 49 H (14-36) U/L ALT 92 H (4-34) U/L Alkaline Phosphatase 134 H (38-126) U/L Total Protein 6.2 L (6.3-8.2) g/dL Urine Appearance Cloudy H (Clear) Urine Nitrite Positive H (Negative) Ur Leukocyte Esterase Large H (Negative) Urine WBC 32 H (0-5) /hpf Urine WBC Clumps Rare H (None) /hpf Urine Bacteria Rare H (None) /hpf Urine Mucus Rare H (None) /hpf Thrombosis Risk Factor Assmnt - Choose All That Apply Each Risk Factor Represents 3 Points: Age 75 years or older Thrombosis Risk Factor Assessment Total Risk Factor Score: 3 Thrombosis Risk Factor Assessment Level: Moderate Risk
[2025-02-15] MEDS: DEXTROSE 5%-0.45% NACL 1,000 ML IV SCH ×2 (00:36→17:28)
[2025-02-15 07:54] LABS: Basophils # (A) 0.04 X 10*3/uL (0.00-0.10); Basophils % (A) 0.5 %; Eosinophils # (A) 0.03 X 10*3/uL (0.04-0.35); Eosinophils % (A) 0.3 %; HCT 47.7 % (37.2-46.3); HGB 15.8 g/dL (12.0-15.0); Immature Grans, Automated 0.30 %; Lymphocytes # (A) 0.95 X 10*3/uL (0.90-5.00); Lymphocytes % (A) 11.0 %; MCH 32.4 pg (27.0-32.0); MCHC 33.1 g/dL (32.0-37.0); MCV 97.9 FL (80.0-97.0); Monocytes # (A) 0.92 X 10*3/uL (0.20-1.00); Monocytes % (A) 10.6 %; NRBC Per 100 WBC 0 X 10*3/uL (0.00-0.01); Neutrophils # (A) 6.67 X 10*3/uL (1.80-7.70); Neutrophils % (A) 77.3 %; Platelet Count 182 X 10*3/uL (140-440); RBC 4.87 X 10*6/uL (4.10-5.20); RDW 13.9 % (11.5-14.5); WBC 8.64 X 10*3/uL (4.50-10.00)
[2025-02-15 07:59] LABS: ALT 82 U/L (8-44); AST 42 U/L (13-35); Albumin 3.6 g/dL (3.8-4.9); Albumin/Globulin Ratio 1.80 Ratio (1.60-3.17); Alkaline Phosphatase 134 U/L (41-126); Anion Gap 11.60 mmol/L (4.00-12.00); BUN/Creat Ratio 22.17 Ratio (12.00-20.00); Blood Urea Nitrogen 13.3 mg/dL (9.0-27.0); Calcium 9.4 mg/dL (8.7-10.3); Carbon Dioxide 22.4 mmol/L (21.6-31.8); Chloride 106 mmol/L (96-109); Globulin 2.0 g/dL (1.6-3.3); Glucose 135 mg/dL (70-110); Potassium 4.1 mmol/L (3.5-5.5); Sodium 140 mmol/L (135-145); Total Protein 5.6 g/dL (6.2-8.2)
[2025-02-15] MEDS: MULTIVITAMINS, THERA 1 EACH TAB PO SCH (08:16)
[2025-02-15] MEDS: ASCORBIC ACID 500 MG TAB PO SCH (08:16)
[2025-02-15] MEDS: ENOXAPARIN 40 MG/0.4 ML SYRINGE SQ SCH (08:18)
[2025-02-15] MEDS: FAMOTIDINE 20 MG/2 ML VIAL IV SCH (08:18)
[2025-02-15] MEDS ORDERED: PRIMIDONE 250 MG TAB PO SCH (09:00)
[2025-02-15] MEDS: PRIMIDONE 25 MG TAB PO SCH (09:17)
[2025-02-15 17:24] VITALS: BMI 25.7
--- NOTE | 2025-02-15 19:44 | P.PN ---
Subjective This is 84-year-old patient presents to the ER. Chronic medical conditions include gait dysfunction, cognitive impairment. Patient states that for the last 2 days she is feeling really weak. Not really able to get out of bed. Decreased appetite. She lives in assisted living. Does have baseline tremors. Also complaining of some trouble discomfort with urination. Denies any fever chills or shortness of breath. Tired 02/15 Patient does not feel weak today No dysuria or urgency, no increase or change in frequency. But sometimes it is hard for her to to pee. No other new signs symptoms No abdominal or neurological signs or symptoms As per daughter patient baseline is walking in her house using a walker, basical ly she able to walk to the bathroom [id number] On admission was confused and disoriented and was agitated could not walk. As per daughter mentation is back to baseline now. She still very weak she will required rehab upon discharge She is still getting IV fluid normal saline at 75 mL/h but we will lower dose to 50 mL/h. Patient was not eating and she was encouraged to eat INVESTIGATIONS, reviewed in the clinical context: (All reviewed) February 14: White count 10.4 hemoglobin 14.9 platelets 162 sodium 139 potassium 3.9 BUN 19 creatinine 0.45 UA positive for nitrate, leukoesterase, WBC 32 EKG tracing personally reviewed by me-2 to 1 block Chest x-ray film personally reviewed by me-possible infiltrates at the bases CT brain age-related atrophy Review of systems CONSTITUTIONAL: No fever, no malaise, no fatigue. HEENT: No recent visual problems or hearing problems. Denied any sore throat. HEMATOLOGICAL: Denies any bleeding or petechiae. GENITOURINARY: Denies any burning micturition, frequency, or urgency. MUSCULOSKELETAL/RHEUMATOLOGICAL: Denies any joint pain, swelling, or any muscle pain. ENDOCRINE: Denies any polyuria or polydipsia. Active Medications Generic Name Dose Route Start Last Admin Trade Name Freq PRN Reason Stop Dose Admin Acetaminophen 650 mg 02/14/25 16:04 Acetaminophen Tab 325 Mg Tab PO Q6HR PRN Mild Pain or Fever > 100.5 Ascorbic Acid 1,000 mg 02/15/25 09:00 02/15/25 08:16 Ascorbic Acid 500 Mg Tab PO 1,000 mg DAILY TIMI Administration Enoxaparin Sodium 40 mg 02/15/25 09:00 02/15/25 08:18 Enoxaparin 40 Mg/0.4 Ml Syringe SQ 40 mg DAILY TIMI Administration Famotidine 20 mg 02/15/25 09:00 02/15/25 08:18 Famotidine 20 Mg/2 Ml Vial IV 20 mg Q12HR TIMI Administration Ceftriaxone Sodium 1 gm/ 50 mls @ 100 mls/hr 02/15/25 16:00 02/15/25 17:29 Sodium Chloride IVPB 100 mls/hr Q24H TIMI Administration Dextrose/Sodium Chloride 1,000 mls @ 50 mls/hr 02/15/25 13:15 02/15/25 17:28 Dextrose 5%-1/2ns Iv Soln IV 50 mls/hr .Q20H TIMI Administration Multivitamins 1 each 02/15/25 09:00 02/15/25 08:16 Multivitamins, Thera 1 Each Tab PO 1 each DAILY TIMI Administration Naloxone HCl 0.2 mg 02/14/25 16:04 Naloxone 0.4 Mg/Ml 1 Ml Vial IV Q2M PRN Opioid Reversal Primidone 25 mg 02/15/25 09:00 02/15/25 17:29 Primidone 25 Mg Tab PO 25 mg TID TIMI Administration Topiramate 50 mg 02/14/25 21:00 02/14/25 20:19 Topiramate 25 Mg Tab PO 50 mg HS TIMI Administration Objective - Vital Signs Vital signs: Vital Signs Temp 98.0 F 02/15/25 07:51 Pulse 75 02/15/25 07:51 Resp 15 02/15/25 07:51 BP 119/74 02/15/25 07:51 Pulse Ox 95 02/15/25 07:51 FiO2 Intake & Output 02/14/25 02/15/25 02/15/25 18:59 06:59 18:59 Output Total 550 Balance -550 Weight 68.039 kg Output: Urine 550 Other: Voiding Method Diaper Diaper Diaper External Catheter External Catheter External Catheter # Voids 1 1 - Labs CBC & Chem 7: 02/15/25 03:29 02/15/25 03:29 Labs: Abnormal Lab Results - Last 24 Hours (Table) 02/14/25 02/15/25 02/15/25 Range/Units 14:55 03:29 03:29 Hgb 15.8 H (12.0-15.0) g/dL Hct 47.7 H (37.2-46.3) % MCV 97.9 H (80.0-97.0) FL MCH 32.4 H (27.0-32.0) pg Eosinophils # 0.03 L (0.04-0.35) X 10*3/uL BUN/Creatinine Ratio 22.17 H (12.00-20.00) Ratio Glucose 135 H (70-110) mg/dL AST 42 H (13-35) U/L ALT 82 H (8-44) U/L Alkaline Phosphatase 134 H (41-126) U/L Total Protein 5.6 L (6.2-8.2) g/dL Albumin 3.6 L (3.8-4.9) g/dL Urine Appearance Cloudy H (Clear) Urine Nitrite Positive H (Negative) Ur Leukocyte Esterase Large H (Negative) Urine WBC 32 H (0-5) /hpf Urine WBC Clumps Rare H (None) /hpf Urine Bacteria Rare H (None) /hpf Urine Mucus Rare H (None) /hpf Assessment and Plan Assessment: Assessment plan: - Acute medical asthenia. At baseline patient able to use a walker. For 2 days unable to get up. Likely from underlying UTI. PT OT - Acute UTI IV ceftriaxone -Moderate-severe protein calorie malnutrition. Recheck BMI Ensure. 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 Chronic primidone 25 mg 3 times daily -Medical debility. PT OT. -No code Plan: -GENERAL: The patient is alert and oriented x3, not in any acute distress. Well developed, well nourished. mild weakness HEENT: Pupils are round and equally reacting to light. EOMI. No scleral icterus. No conjunctival pallor. Normocephalic, atraumatic. No pharyngeal erythema. No thyromegaly. CARDIOVASCULAR: S1 and S2 present. No murmurs, rubs, or gallops. PULMONARY: Chest is clear to auscultation, no wheezing , no crackles. ABDOMEN: Soft, nontender, nondistended, normoactive bowel sounds. No palpable organomegaly. MUSCULOSKELETAL: No joint swelling or deformity. EXTREMITIES: No cyanosis, clubbing, or pedal edema. NEUROLOGICAL: Gross neurological examination did not reveal any focal deficits. SKIN: No rashes. no petechiae.
[2025-02-16] MEDS: ACETAMINOPHEN TAB 325 MG TAB PO PRN (08:12)
--- NOTE | 2025-02-16 13:16 | US ---
EXAMINATION TYPE: US renals and bladder DATE OF EXAM: 02/16/2025 COMPARISON: NONE CLINICAL INDICATION: Female, 84 years old with history of fever uti; Fever, UTI TECHNIQUE: Grayscale imaging of the bilateral kidneys and urinary bladder: FINDINGS: EXAM MEASUREMENTS: Right Kidney: 11.3 x 5.5 x 5.8 cm Left Kidney: 11.9 x 4.9 x 6.4 cm Right Kidney: Renal pelvis appears prominent. *Multiple anechoic areas seen, largest area was seen at the lower pole and appears lobulated: 4.2 x 2 .6 x 3.4 cm. *Multiple hyperechoic foci with posterior shadowing seen, largest seen at the lower pole: 0.6 x 0.7 x 0.4 cm. Findings compatible with nonobstructing renal stones. Left Kidney: 2 hyperechoic areas with posterior shadowing seen at the lower pole- #1: 1.3 x 0.9 x 0.4 cm. #2 is seen laterally: 1.5 x 2.1 x 1.2 cm. *Anechoic area seen upper pole: 0.9 x 0.7 x 1.8 cm. Bladder: Echogenic material seen within the right bladder: 3.0 x 3.9 x 2.0 cm. Bilateral Jets seen: Only left jet seen during exam. IMPRESSION: 1. Bilateral nonobstructing renal stones. 2. There may be some mild hydronephrosis versus extrarenal pelvis. 3. Debris within the urinary bladder. Follow-up recommended. 4. Nonvisualization of the right ureter during this exam [facility], Workstation: [facility], 02/16/2025 1:14 PM
--- NOTE | 2025-02-16 19:42 | P.PN ---
Subjective This is 84-year-old patient presents to the ER. Chronic medical conditions include gait dysfunction, cognitive impairment. Patient states that for the last 2 days she is feeling really weak. Not really able to get out of bed. Decreased appetite. She lives in assisted living. Does have baseline tremors. Also complaining of some trouble discomfort with urination. Denies any fever chills or shortness of breath. Tired 02/15 Patient does not feel weak today No dysuria or urgency, no increase or change in frequency. But sometimes it is hard for her to to pee. No other new signs symptoms No abdominal or neurological signs or symptoms As per daughter patient baseline is walking in her house using a walker, basical ly she able to walk to the bathroom [id number] On admission was confused and disoriented and was agitated could not walk. As per daughter mentation is back to baseline now. She still very weak she will required rehab upon discharge She is still getting IV fluid normal saline at 75 mL/h but we will lower dose to 50 mL/h. Patient was not eating and she was encouraged to eat INVESTIGATIONS, reviewed in the clinical context: (All reviewed) February 14: White count 10.4 hemoglobin 14.9 platelets 162 sodium 139 potassium 3.9 BUN 19 creatinine 0.45 UA positive for nitrate, leukoesterase, WBC 32 EKG tracing personally reviewed by me-2 to 1 block Chest x-ray film personally reviewed by me-possible infiltrates at the bases CT brain age-related atrophy 02/16 vPatient developed fever of 101.5 No abdominal pain no dysuria no cough no dyspnea No rash Will order ultrasound of the kidney Infectious disease consult Addendum: I discussed the case with home health care case manager today. Patient will need wheelchair at times secondary to her UTI and weakness Objective - Vital Signs Vital signs: Vital Signs Temp 101.5 F H 02/16/25 07:10 Pulse 71 02/16/25 07:10 Resp 17 02/16/25 07:10 BP 144/81 02/16/25 07:10 Pulse Ox 96 02/16/25 07:10 FiO2 Intake & Output 02/15/25 02/16/25 02/16/25 18:59 06:59 18:59 Output Total 400 Balance -400 Weight 68.039 kg Output: Urine 400 Other: Voiding Method Diaper Diaper Diaper External Catheter External Catheter External Catheter # Voids 1 - Exam -GENERAL: The patient is alert and oriented x3, not in any acute distress. Well developed, well nourished. mild weakness HEENT: Pupils are round and equally reacting to light. EOMI. No scleral icterus. No conjunctival pallor. Normocephalic, atraumatic. No pharyngeal erythema. No thyromegaly. CARDIOVASCULAR: S1 and S2 present. No murmurs, rubs, or gallops. PULMONARY: Chest is clear to auscultation, no wheezing , no crackles. ABDOMEN: Soft, nontender, nondistended, normoactive bowel sounds. No palpable organomegaly. MUSCULOSKELETAL: No joint swelling or deformity. EXTREMITIES: No cyanosis, clubbing, or pedal edema. NEUROLOGICAL: Gross neurological examination did not reveal any focal deficits. SKIN: No rashes. no petechiae. - Labs CBC & Chem 7: 02/15/25 03:29 02/15/25 03:29 Assessment and Plan Assessment: Assessment plan: - Acute medical asthenia. At baseline patient able to use a walker. For 2 days unable to get up. Likely from underlying UTI. PT OT - Acute UTI IV ceftriaxone - Consult infectious disease team -Moderate-severe protein calorie malnutrition. Recheck BMI Ensure. 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 Chronic primidone 25 mg 3 times daily -Medical debility. PT OT. -No code
[2025-02-16] MEDS: FAMOTIDINE 20 MG TAB PO SCH (21:28)
--- NOTE | 2025-02-16 22:21 | P.CONS ---
History of Present Illness - Reason for Consult Consult date: 02/16/25 Fever Requesting physician: Jose Akers - Chief Complaint Weakness x few days - History of Present Illness Patient is a 84-year-old female with a past medical history pertinent for dementia hypertension hyperlipidemia atrial fibrillation has been brought into the hospital 2 days ago from assisted living facility concerning for generalized weakness symptom has been getting worse over the last few days the patient has difficulty getting out of the bed and weakness in bilateral lower extremity also was complaining of some mild lower abdominal discomfort but no fever or chills on presentation to the hospital patient was afebrile however she did spike a fever of 101.5 F this morning patient was not tachycardic hypotensive or hypoxic patient did have a white count of 9.49 with a left shift BUN was mildly elevated subsequent normalized also mild elevated liver enzymes urine has been positive with large leukocyte esterase 32 WBC with urine cultures currently pending no blood culture obtain patient will be started on ceftriaxone infectious disease was consulted for further management of antibiotic therapy patient did have underlying dementia not with good historian when asked specifically denies any headache or chest pain shortness with or cough no abdominal pain no diarrhea Review of Systems Positive points has been mentioned in HPI complete review could not be obtained because of his underlying mental status Past Medical History Past Medical History: Atrial Fibrillation, Dementia, Hyperlipidemia, Hypertension Additional Past Medical History / Comment(s): tremors History of Any Multi-Drug Resistant Organisms: None Reported Past Surgical History: Hysterectomy, Orthopedic Surgery, Tubal Ligation Past Anesthesia/Blood Transfusion Reactions: No Reported Reaction Past Psychological History: No Psychological Hx Reported Smoking Status: Former smoker Past Alcohol Use History: None Reported Past Drug Use History: None Reported - Past Family History family Family Medical History: No Reported History Additional Family Medical History / Comment(s): the patient does report that her mother had a tremor Medications and Allergies Home Medications Medication Instructions Recorded Confirmed Type Ascorbic Acid [Vitamin C] 1,000 mg PO DAILY 02/14/25 02/14/25 History Midodrine [ProAmatine] 5 mg PO TID 02/14/25 02/14/25 History Multivitamins, Thera [Multivitamin 1 tab PO DAILY 02/14/25 02/14/25 History (formulary)] Primidone 125 mg PO TID 02/14/25 02/14/25 History Senna-Time 8.6mg 8.6 mg PO BID 02/14/25 02/14/25 History Topiramate [Topamax] 50 mg PO HS 02/14/25 02/14/25 History Allergies Allergy/AdvReac Type Severity Reaction Status Date / Time No Known Allergies Allergy Verified 02/14/25 16:44 Physical Exam Vitals: Vital Signs Temp Pulse Resp BP Pulse Ox 02/16/25 07:10 101.5 F H 71 17 144/81 96 02/16/25 01:01 97.9 F 70 17 129/70 95 02/15/25 20:00 97.9 F 70 19 116/71 94 L 02/15/25 14:00 97.9 F 71 15 118/68 96 Intake and Output 02/15/25 02/16/25 02/16/25 22:59 06:59 14:59 Output Total 400 Balance -400 Output: Urine 400 Other: Voiding Method Diaper Diaper External Catheter External Catheter # Voids 1 Weight 68.039 kg GENERAL DESCRIPTION: Elderly female lying in bed, no distress. No tachypnea or accessory muscle of respiration use. HEENT: Shows Pallor , no scleral icterus. Oral mucous membrane is dry. NECK: Trachea central, no thyromegaly. LUNGS: Unlabored breathing. Clear to auscultation anteriorly. No wheeze or crackle. HEART: S1, S2, regular rate and rhythm. No loud murmur ABDOMEN: Soft, no tenderness , guarding or rigidity, no organomegaly EXTREMITIES: No edema of feet. SKIN: No rash, no masses palpable. NEUROLOGICAL: The patient is awake, mood and affect normal. Results CBC & Chem 7: 02/15/25 03:29 02/15/25 03:29 Labs: Microbiology - Last 24 Hours (Table) 02/14/25 14:55 Urine Culture - Preliminary Urine,Voided Assessment and Plan (1) Fever Current Visit: Yes Status: Acute Code(s): R50.9 - FEVER, UNSPECIFIED SNOMED Code(s): 334914052 (2) UTI (urinary tract infection) Current Visit: Yes Status: Acute Code(s): N39.0 - URINARY TRACT INFECTION, SITE NOT SPECIFIED SNOMED Code(s): 07584619 (3) Elevated liver enzymes Current Visit: Yes Status: Acute Code(s): R74.8 - ABNORMAL LEVELS OF OTHER SERUM ENZYMES SNOMED Code(s): 905868897 Plan: 1patient with the fever in this patient was in the hospital 2 days before admission evaluation mostly with generalized weakness patient did have a positive UA and no other obvious focus of infection at this point to be the likely etiology for this fever, patient did have a renal ultrasound concerning for mild hydronephrosis and debris's within the urinary bladder 2-we will treat the patient with Rocephin 2 g daily while waiting for the culture to finalize 3-we will also check an ultrasound of the abdomen because of the elevated liver enzymes We will follow on clinical condition and cultures to further adjust medication if needed Thank you for this consultation we will follow the patient along with you Dictation was produced using [employer] dictation software. please excuse any grammatical, word or spelling errors. Time with Patient: Greater than 30
--- NOTE | 2025-02-17 09:11 | P.GSCN ---
History of Present Illness Consult date: 02/17/25 History of present illness: 84-year-old female in the hospital for generalized weakness. She comes from the assisted facility. The history is taken from the daughter and the chart. The patient will give no history. The daughter states she can respond to questions but she did not respond to any of mind. There is no history of urinary tract issues. Her urine is inflamed. She had sign of the abdomen that suggested perhaps right hydronephrosis, she has bilateral cysts and stones according the ultrasound. No gross hematuria. There is occasional urine infection. There is no history of urologic surgery. Review of Systems ROS unobtainable: due to mental status Past Medical History Past Medical History: Atrial Fibrillation, Dementia, Hyperlipidemia, Hypertension Additional Past Medical History / Comment(s): tremors History of Any Multi-Drug Resistant Organisms: None Reported Past Surgical History: Hysterectomy, Orthopedic Surgery, Tubal Ligation Past Anesthesia/Blood Transfusion Reactions: No Reported Reaction Past Psychological History: No Psychological Hx Reported Smoking Status: Former smoker Past Alcohol Use History: None Reported Past Drug Use History: None Reported - Past Family History family Family Medical History: No Reported History Additional Family Medical History / Comment(s): the patient does report that her mother had a tremor Medications and Allergies Home Medications Medication Instructions Recorded Confirmed Type Ascorbic Acid [Vitamin C] 1,000 mg PO DAILY 02/14/25 02/14/25 History Midodrine [ProAmatine] 5 mg PO TID 02/14/25 02/14/25 History Multivitamins, Thera [Multivitamin 1 tab PO DAILY 02/14/25 02/14/25 History (formulary)] Primidone 125 mg PO TID 02/14/25 02/14/25 History Senna-Time 8.6mg 8.6 mg PO BID 02/14/25 02/14/25 History Topiramate [Topamax] 50 mg PO HS 02/14/25 02/14/25 History Allergies Allergy/AdvReac Type Severity Reaction Status Date / Time No Known Allergies Allergy Verified 02/14/25 16:44 Surgical - Exam Vital Signs Temp Pulse Resp BP Pulse Ox 98.1 F 82 16 141/75 95 02/14/25 10:54 02/14/25 10:54 02/14/25 10:54 02/14/25 10:54 02/14/25 10:54 - General well developed, well nourished, no distress - Eyes normal ocular movement, no icteric - ENT no hearing loss, no congestion - Neck no masses, trachea midline - Respiratory normal respiratory effort, clear to auscultation - Abdomen Abdomen: soft, non tender, no guarding, no rigid, no rebound - Integumentary no rash, no abnormal pigmentation - Neurologic disoriented, no combative Results - Labs 02/15/25 03:29 02/15/25 03:29 Microbiology - Last 24 Hours (Table) 02/14/25 14:55 Urine Culture - Preliminary Urine,Voided - Imaging US - abdomen: report reviewed, image reviewed Assessment and Plan Assessment: Impression: Possible right sided hydronephrosis. Possible renal cyst and renal stones, bilateral. Multiple medical illnesses.. Recommendations: Per sound is incomplete in the evaluation. Should have a CT scan of the abdomen with and without contrast to assess the urinary tract system. Time with Patient: Greater than 30
--- NOTE | 2025-02-17 13:48 | CT ---
EXAMINATION TYPE: CT abdomen pelvis wo/w con CT DLP: 1261.1 mGycm, Automated exposure control for dose reduction was used. DATE OF EXAM: 02/17/2025 1:25 PM COMPARISON: Renal ultrasound 02/16/2025 CLINICAL INDICATION:Female, 84 years old with history of Right sided hydronephrosis, abnormal ultraso und,; rt side hydronephrosis, abnormal US TECHNIQUE: Standard CT of the abdomen and pelvis before and after the uneventful administration of 70 mL of Isovue-300 intravenously. No oral contrast administered. Coronal and sagittal reformats were performed. FINDINGS: LOWER CHEST: Elevation of the right hemidiaphragm. Cardiomegaly. Coronary artery calcifications. Bila teral lower lobe subsegmental atelectasis. Trace right pleural effusion. ABDOMEN LIVER: Unremarkable GALLBLADDER AND BILE DUCTS: Unremarkable. PANCREAS: Unremarkable. SPLEEN: Unremarkable. ADRENAL GLANDS: Unremarkable KIDNEYS AND URETERS: No hydronephrosis. Couple of nonobstructing right renal calculi with largest in the renal pelvis measuring 7 mm. A few nonobstructing left renal calculi with largest in the left ricky al pelvis measuring 2.0 cm. Right renal inferior pole exophytic 3.6 cm simple appearing cyst. Additi onal smaller right renal 1.3 similar simple-appearing cyst. No follow-up recommended. Right renal and left renal focal regions of cortical thinning suggesting prior injury. Contrast is demonstrated with in both collecting systems on the delayed phase. Prominent right extra renal pelvis. PELVIS BLADDER: Unremarkable REPRODUCTIVE: The uterus is surgically absent. ABDOMEN & PELVIS STOMACH AND BOWEL: Stomach and duodenum are unremarkable. Distal colonic diverticulosis without evide nce for acute diverticulitis. No focal bowel wall thickening or surrounding inflammatory changes. No evidence of bowel obstruction. PERITONEUM: No evidence of pneumoperitoneum or free fluid. VASCULATURE: Moderate atherosclerotic calcifications are present throughout the abdominal aorta and i ts branches. No evidence of aortic aneurysm. MUSCULOSKELETAL: No acute osseous abnormalities. Diffuse bone demineralization. Remote appearing cent ral compression deformity of the L5 vertebral body with approximately 50% height loss. No paraspinal edema. Grade 1 anterolisthesis at L4 on L5 without evidence of pars defects. Multilevel degenerative disc disease. LYMPH NODES: No evidence for lymphadenopathy. SOFT TISSUE/ABDOMINAL WALL: Unremarkable IMPRESSION: 1. No acute abdominal/pelvic process. 2. Nonobstructing bilateral renal calculi with right external pelvis. 3. Colonic diverticulosis without evidence for acute diverticulitis. 4. Remote appearing compression deformity of the L5 vertebral body. 5. Trace right pleural effusion. [facility], , 02/17/2025 1:45 PM
[2025-02-17] MEDS: SODIUM CHLORIDE 0.9% 1,000 ML IV SCH (20:02)
--- NOTE | 2025-02-17 22:13 | P.PN ---
Subjective This is 84-year-old patient presents to the ER. Chronic medical conditions include gait dysfunction, cognitive impairment. Patient states that for the last 2 days she is feeling really weak. Not really able to get out of bed. Decreased appetite. She lives in assisted living. Does have baseline tremors. Also complaining of some trouble discomfort with urination. Denies any fever chills or shortness of breath. Tired 02/15 Patient does not feel weak today No dysuria or urgency, no increase or change in frequency. But sometimes it is hard for her to to pee. No other new signs symptoms No abdominal or neurological signs or symptoms As per daughter patient baseline is walking in her house using a walker, basical ly she able to walk to the bathroom [id number] On admission was confused and disoriented and was agitated could not walk. As per daughter mentation is back to baseline now. She still very weak she will required rehab upon discharge She is still getting IV fluid normal saline at 75 mL/h but we will lower dose to 50 mL/h. Patient was not eating and she was encouraged to eat INVESTIGATIONS, reviewed in the clinical context: (All reviewed) February 14: White count 10.4 hemoglobin 14.9 platelets 162 sodium 139 potassium 3.9 BUN 19 creatinine 0.45 UA positive for nitrate, leukoesterase, WBC 32 EKG tracing personally reviewed by me-2 to 1 block Chest x-ray film personally reviewed by me-possible infiltrates at the bases CT brain age-related atrophy 02/16 vPatient developed fever of 101.5 No abdominal pain no dysuria no cough no dyspnea No rash Will order ultrasound of the kidney Infectious disease consult Addendum: I discussed the case with field case manager today. Patient will need wheelchair at times secondary to her UTI and weakness 02/17 Patient feels the same No new signs symptoms Patient had CT of the abdomen and pelvis today per urological workup which showed no acute intra-abdominal or pelvic lesion but bilateral renal calculi with no evidence of hydronephrosis, diverticulosis without diverticulitis. Labs stable. No leukocytosis. Hemoglobin stable. Liver enzymes slightly improved. Remains on ceftriaxone. Gentle hydration. Today night. Urine culture is growing gram-negative bacilli Objective - Vital Signs Vital signs: Vital Signs Temp 98.4 F 02/17/25 02:00 Pulse 70 02/17/25 02:00 Resp 17 02/17/25 02:00 BP 149/73 02/17/25 02:00 Pulse Ox 94 L 02/17/25 02:00 FiO2 Intake & Output 02/16/25 02/17/25 02/17/25 18:59 06:59 18:59 Output Total 700 300 Balance -700 -300 Output: Urine 700 300 Other: Voiding Method Diaper Diaper Diaper External Catheter External Catheter External Catheter # Voids 1 - Exam -GENERAL: The patient is alert and oriented x3, not in any acute distress. Well developed, well nourished. mild weakness HEENT: Pupils are round and equally reacting to light. EOMI. No scleral icterus. No conjunctival pallor. Normocephalic, atraumatic. No pharyngeal erythema. No thyromegaly. CARDIOVASCULAR: S1 and S2 present. No murmurs, rubs, or gallops. PULMONARY: Chest is clear to auscultation, no wheezing , no crackles. ABDOMEN: Soft, nontender, nondistended, normoactive bowel sounds. No palpable organomegaly. MUSCULOSKELETAL: No joint swelling or deformity. EXTREMITIES: No cyanosis, clubbing, or pedal edema. NEUROLOGICAL: Gross neurological examination did not reveal any focal deficits. SKIN: No rashes. no petechiae. - Labs CBC & Chem 7: 02/15/25 03:29 02/15/25 03:29 Labs: Microbiology - Last 24 Hours (Table) 02/14/25 14:55 Urine Culture - Preliminary Urine,Voided Assessment and Plan Assessment: Assessment plan: - Acute medical asthenia. At baseline patient able to use a walker. For 2 days unable to get up. Likely from underlying UTI. Secondary to gram-negative bacilli PT OT - Acute UTI. Gram-negative bacilli IV ceftriaxone - Consult infectious disease team -Moderate-severe protein calorie malnutrition. Recheck BMI Ensure. 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 Chronic primidone 25 mg 3 times daily -Medical debility. PT OT. -No code Plan: -GENERAL: The patient is alert and oriented x3, not in any acute distress. Well developed, well nourished. mild weakness HEENT: Pupils are round and equally reacting to light. EOMI. No scleral icterus. No conjunctival pallor. Normocephalic, atraumatic. No pharyngeal erythema. No thyromegaly. CARDIOVASCULAR: S1 and S2 present. No murmurs, rubs, or gallops. PULMONARY: Chest is clear to auscultation, no wheezing , no crackles. ABDOMEN: Soft, nontender, nondistended, normoactive bowel sounds. No palpable organomegaly. MUSCULOSKELETAL: No joint swelling or deformity. EXTREMITIES: No cyanosis, clubbing, or pedal edema. NEUROLOGICAL: Gross neurological examination did not reveal any focal deficits. SKIN: No rashes. no petechiae.
--- NOTE | 2025-02-18 06:48 | P.PN ---
Subjective Progress Note Date: 02/18/25 The patient was seen in consultation for rigtht sided hydronephrosis I ordered the ct scan that shows small volume right renal stone and a partial staghorn left. there is no obstruction. They patient does have a uti and is on ab. Her wbc is normal Objective - Vital Signs Vital signs: Vital Signs Temp 98.3 F 02/18/25 02:30 Pulse 74 02/18/25 02:30 Resp 16 02/18/25 02:30 BP 155/74 02/18/25 02:30 Pulse Ox 96 02/18/25 02:30 FiO2 Intake & Output 02/17/25 02/17/25 02/18/25 06:59 18:59 06:59 Output Total 300 500 300 Balance -300 -500 -300 Output: Urine 300 500 300 Other: Voiding Method Diaper Diaper Diaper External Catheter External Catheter External Catheter # Voids 1 1 - Labs CBC & Chem 7: 02/15/25 03:29 02/15/25 03:29 Labs: Microbiology - Last 24 Hours (Table) 02/14/25 14:55 Urine Culture - Preliminary Urine,Voided Gram Neg Bacilli Assessment and Plan Assessment: Impression: Bilateral renal stones, non obstructing. Uti Recommendation: The patient is on ab. I will discuss with the patient and family about potential treatment to the stones in the future.
[2025-02-18 08:33] LABS: Basophils # (A) 0.03 X 10*3/uL (0.00-0.10); Basophils % (A) 0.6 %; Eosinophils # (A) 0.18 X 10*3/uL (0.04-0.35); Eosinophils % (A) 3.4 %; HCT 46.0 % (37.2-46.3); HGB 15.1 g/dL (12.0-15.0); Immature Grans, Automated 0.20 %; Lymphocytes # (A) 0.84 X 10*3/uL (0.90-5.00); Lymphocytes % (A) 15.8 %; MCH 31.7 pg (27.0-32.0); MCHC 32.8 g/dL (32.0-37.0); MCV 96.4 FL (80.0-97.0); Monocytes # (A) 0.52 X 10*3/uL (0.20-1.00); Monocytes % (A) 9.8 %; NRBC Per 100 WBC 0 X 10*3/uL (0.00-0.01); Neutrophils # (A) 3.72 X 10*3/uL (1.80-7.70); Neutrophils % (A) 70.2 %; Platelet Count 224 X 10*3/uL (140-440); RBC 4.77 X 10*6/uL (4.10-5.20); RDW 13.8 % (11.5-14.5); WBC 5.30 X 10*3/uL (4.50-10.00)
[2025-02-18 08:45] LABS: Anion Gap 9.10 mmol/L (4.00-12.00); BUN/Creat Ratio 22.17 Ratio (12.00-20.00); Blood Urea Nitrogen 13.3 mg/dL (9.0-27.0); Calcium 9.6 mg/dL (8.7-10.3); Carbon Dioxide 22.9 mmol/L (21.6-31.8); Chloride 110 mmol/L (96-109); Glucose 109 mg/dL (70-110); Potassium 4.5 mmol/L (3.5-5.5); Sodium 142 mmol/L (135-145)
--- NOTE | 2025-02-18 11:42 | CDI ---
Documentation Clarification Form Date: 02/18/2025 11:18:36 AM From: Mahnaz Naranjo RN CDIS Phone: [phone] Admit Date: 02/14/2025 04:04:00 PM Patient Name: Saniya Tate Visit Number: [id number] Discharge Date: ATTENTION: The Clinical Documentation Specialists (CDI) and [facility] Coding Staff appreciate your assistance in clarifying documentation. Please respond to the clarification below the line at the bottom and electronically sign. The CDI & [facility] Coding staff will review the response and follow-up if needed. Please note: Queries are made part of the Legal Health Record. If you have any questions, please contact the author of this message via ITS. Doctor: Jhonny Guaman Moderate Severe Malnutrition is documented 02/17, Medicine note. Additional clarification regarding the severity of malnutrition is requested. History/Risk Factors: 84 year old female presents to the ED feeling really weak the last two days, discomfort with urination, decreased eating and getting out of bed. Medical History: Atrial Fibrillation, Dementia, HTN and HLD 02/14, HP Clinical Indicators: RD Consult Assessment 02/14: Current BMI: 25.7 Wgt 68.039kg Hgt 5ft 4in unable to assess weight history. Nutritional intake 0-25% appetite poor. Inadequate energy intake related to dementia, diminished appetite. As evidenced by consuming < 50% EEN . Nutritional goals increase PO intake from 50% to 75% . meeting nutritional needs. [Cite applicable ASPEN criteria listed below] Treatment: Heart healthy diet, monitor supplement intake and PO intake Supplements: Ensure + HP TID PPN/TPN: Please clarify the severity of malnutrition, if known: [ ] Moderate Protein-Calorie Malnutrition [ ] Severe Protein-Calorie Malnutrition [ ] Other condition, please specify [ ] Unable to Determine Reference: Using the ASPEN Guidelines, Undernutrition (Malnutrition) is characterized by at least two of the following six findings. The severity can be determined based on the criteria listed below. Acute Illness Characteristics: Moderate protein calorie malnutrition (acute illness) Energy intake <75% for >7 days Weight Loss 1-2% in one week, 5% in 1 month, 7.5% in 3 months Mild loss of body fat, muscle mass, fluid accumulation Severe protein calorie malnutrition (acute illness) Energy intake = 50% for = 5 days Weight Loss >2% in one week, >5% in 1 month, >7.5% in 3 months Moderate loss of body fat, muscle mass, fluid accumulation Reduced hand gas treater strength Chronic Illness Characteristics: Moderate protein calorie malnutrition (chronic illness) Energy intake <75% for = 1 month Weight Loss 5% in one month, 7.5% in 3 months, 10% in 6 months, 20% in 1 year Mild loss of body fat, muscle mass, fluid accumulation Severe protein calorie malnutrition (chronic illness) Energy intake =75% for = 1 month Weight Loss >5% in one month, >7.5% in 3 months, >10% in 6 months, >20% in 1 year Severe loss of body fat, muscle mass, fluid accumulation Reduced hand gas treater strength (Template Last Revised: January 2023) Unable to Determine MTDD
--- NOTE | 2025-02-18 12:14 | CDI ---
Documentation Clarification Form Date: 02/18/2025 11:43:18 AM From: Mahnaz Naranjo RN CDIS Phone: [phone] Admit Date: 02/14/2025 04:04:00 PM Patient Name: Saniya Tate Visit Number: [id number] Discharge Date: ATTENTION: The Clinical Documentation Specialists (CDI) and [facility] Coding Staff appreciate your assistance in clarifying documentation. Please respond to the clarification below the line at the bottom and electronically sign. The CDI & [facility] Coding staff will review the response and follow-up if needed. Please note: Queries are made part of the Legal Health Record. If you have any questions, please contact the author of this message via ITS. Doctor: Jhonny Guaman Coding guidelines do not allow coding professionals to assign diagnosis codes based on ancillary documentation without supportive documentation from a provider; therefore, clarification is requested. The executive personal assistant on 02/17 indicates this patient has a stage 2 pressure ulcer of the Coccyx. Based on this information and the findings below, is there an additional diagnosis that is clinically appropriate for this patient? History/Risk Factors: 84 year old female presents to the ED feeling really weak the last two days, discomfort with urination, decreased eating and getting out of bed. Medical History: Atrial Fibrillation, Dementia, HTN and HLD 02/14, HP Clinical Indicators: Location: Coccyx Wound description: noam wound texture: no abnormality, noam wound moisture no abnormality, per wound color erythema. 02/17 Nursing note: Pressure injury, Stage 2 unable to determine if present on admit. [facility] paperwork states patient was receiving Z-guard PRN to open sore on buttock x 2 areas of injury one to middle of coccyx 1.5cm L by 0.5cm W. one to R buttock 1cm L x 1cm W Treatment: Foam with border, Turn Q2, Absorbant underpad, Barrier protection, Incontinence care Is there an additional diagnosis that is clinically appropriate for this patient? [ ] Coccyx Pressure Ulcer Stage 2 POA [ ] Coccyx Pressure Ulcer Stage 2 Not POA [ ] Unable to determine [ ] Other condition, please specify Clinical Definitions: Stage 1 Pressure Ulcer: intact skin, non-blanching redness of local area Stage 2 Pressure Ulcer: Partial thickness, loss of dermis, pink wound bed Stage 3 Pressure Ulcer: Full thickness tissue loss Stage 4 Pressure Ulcer: Full thickness tissue loss with exposed bone, tendon, or muscle. Unstageable pressure ulcer: Full thickness tissue loss in which the base of the ulcer is covered by slough (yellow, cool, quinn, green or brown) and/or eschar (cool, brown or black) in the wound bed. (Template Last Revised: January 2025) Coccyx Pressure Ulcer Stage 2 POA MTDD
[2025-02-18] MEDS: SENNOSIDES 8.6 MG TAB PO SCH (13:41)
--- NOTE | 2025-02-18 14:59 | PN ---
PROGRESS NOTE DATE OF SERVICE: 02/18/2025 SUBJECTIVE: This is an 84-year-old woman who was admitted with severe weakness with possible UTI, is being closely monitored. Gram-negative bacilli grown from the culture. Final ID is pending at this time. CT scan of the abdomen and pelvis showed nonobstructing bilateral calculus and remote decompression abnormality at L5. The patient is closely monitored at this time. The patient has significant shaking tremors. The patient has not seen so many doctors according to the family. PAST MEDICAL HISTORY: Reviewed. REVIEW OF SYSTEMS: Could not be taken. CURRENT MEDICATIONS: Reviewed. PHYSICAL EXAMINATION: VITAL SIGNS: Pulse is 58, blood pressure 158/80, and respirations 17. HEENT: Conjunctivae normal. CARDIOVASCULAR: S1, S2. RESPIRATIONS: Breath sounds diminished at the bases. ABDOMEN: Soft. NERVOUS SYSTEM: Diffusely weak and shaking tremors also present. LABORATORY DATA: Reviewed. ASSESSMENT: 1. Generalized weakness, possible acute urinary tract infection, gram-negative bacilli. 2. Gait dysfunction. 3. Severe tremors and possible Parkinson's. 4. [id number] protein-calorie malnutrition. 5. Dementia. 6. Elevated AST and ALT. RECOMMENDATIONS AND DISCUSSION: This 84-year-old woman presented with multiple complex medical issues. We will monitor the patient closely. Continue the antibiotics. Await final ID. Neurology consultation. PT and OT evaluation, possible ECF rehab. Supplement vitamins. See orders for further details. Guarded prognosis, because of multiple complex medical issues. Further recommendations to follow. MMODL / IJN: [id number] /
--- NOTE | 2025-02-18 16:22 | P.PN ---
Subjective Progress Note Date: 02/17/25 Principal diagnosis: Reason for follow-up is fever/UTI Patient is a 84-year-old female with a past medical history pertinent for dementia hypertension hyperlipidemia atrial fibrillation has been brought into the hospital from assisted living facility concerning for generalized weakness did have a fever positive concerning for symptomatic UTI. On today's evaluation that is 02/17/2025,the patient denies any fever or any chills, patient is breathing comfortably on room air, the patient denies chest pain shortness of breath and no significant cough, patient denies abdominal pain, no nausea vomiting or diarrhea. Patient white count is 8.64, creatinine 0.6 Objective - Vital Signs Vital signs: Vital Signs Temp 98.4 F 02/17/25 02:00 Pulse 70 02/17/25 02:00 Resp 17 02/17/25 02:00 BP 149/73 02/17/25 02:00 Pulse Ox 94 L 02/17/25 02:00 FiO2 Intake & Output 02/16/25 02/17/25 02/17/25 18:59 06:59 18:59 Output Total 700 300 Balance -700 -300 Output: Urine 700 300 Other: Voiding Method Diaper Diaper Diaper External Catheter External Catheter External Catheter # Voids 1 - Exam GENERAL DESCRIPTION: An elderly female up in the chair in no distress RESPIRATORY SYSTEM: Unlabored breathing , decreased breath sounds at bases HEART: S1 S2 regular rate and rhythm , ABDOMEN: Soft , no tenderness EXTREMITIES: No edema feet - Labs CBC & Chem 7: 02/18/25 03:54 02/18/25 03:54 Labs: Microbiology - Last 24 Hours (Table) 02/14/25 14:55 Urine Culture - Preliminary Urine,Voided Assessment and Plan (1) Fever Current Visit: Yes Status: Acute Code(s): R50.9 - FEVER, UNSPECIFIED SNOMED Code(s): 890038900 (2) UTI (urinary tract infection) Current Visit: Yes Status: Acute Code(s): N39.0 - URINARY TRACT INFECTION, SITE NOT SPECIFIED SNOMED Code(s): 61101758 (3) Elevated liver enzymes Current Visit: Yes Status: Acute Code(s): R74.8 - ABNORMAL LEVELS OF OTHER SERUM ENZYMES SNOMED Code(s): 069805888 Plan: 1patient with the fever in this patient was in the hospital 2 days before admission evaluation mostly with generalized weakness patient did have a positive UA and no other obvious focus of infection at this point to be the likely etiology for this fever, patient did have a renal ultrasound concerning for mild hydronephrosis and debris's within the urinary bladder 2-patient did have some clinic improvement fever resolved we will continue with Rocephin while waiting for the culture to finalize Dictation was produced using [employer] dictation software. please excuse any grammatical, word or spelling errors. Time with Patient: Less than 30
--- NOTE | 2025-02-18 16:23 | P.PN ---
Subjective Progress Note Date: 02/18/25 Principal diagnosis: Reason for follow-up is fever/UTI Patient is a 84-year-old female with a past medical history pertinent for dementia hypertension hyperlipidemia atrial fibrillation has been brought into the hospital from assisted living facility concerning for generalized weakness did have a fever positive concerning for symptomatic UTI. On today's evaluation that is 02/18/2025,the patient remains to be afebrile, patient is on room air not requiring supplemental oxygen and mentioned breathing comfortably with no chest pain or cough.Patient denies having any nausea or vomiting, no abdominal pain and no diarrhea has been reported. Patient white count is 5.30, creatinine 0.6 urine is growing E. coli x 2 sensitive to ceftriaxone, abdominal pelvis CT with no acute abdominal pelvic process nonobstructive bilateral renal calculi Objective - Vital Signs Vital signs: Vital Signs Temp 98.0 F 02/18/25 13:47 Pulse 70 02/18/25 13:47 Resp 18 02/18/25 13:47 BP 118/77 02/18/25 13:47 Pulse Ox 96 02/18/25 13:47 FiO2 Intake & Output 02/17/25 02/18/25 02/18/25 18:59 06:59 18:59 Intake Total 540 Output Total 500 300 Balance -500 240 Weight 68.039 kg Intake: Oral 540 Output: Urine 500 300 Other: Voiding Method Diaper Diaper Diaper External Catheter External Catheter # Voids 1 - Exam GENERAL DESCRIPTION: An elderly female up in the chair in no distress RESPIRATORY SYSTEM: Unlabored breathing , decreased breath sounds at bases HEART: S1 S2 regular rate and rhythm , ABDOMEN: Soft , no tenderness EXTREMITIES: No edema feet - Labs CBC & Chem 7: 02/18/25 03:54 02/18/25 03:54 Labs: Abnormal Lab Results - Last 24 Hours (Table) 02/18/25 02/18/25 Range/Units 03:54 03:54 Hgb 15.1 H (12.0-15.0) g/dL Lymphocytes # 0.84 L (0.90-5.00) X 10*3/uL Chloride 110 H (96-109) mmol/L BUN/Creatinine Ratio 22.17 H (12.00-20.00) Ratio Microbiology - Last 24 Hours (Table) 02/14/25 14:55 Urine Culture - Final Urine,Voided Escherichia coli Escherichia coli#2 Assessment and Plan (1) Fever Current Visit: Yes Status: Acute Code(s): R50.9 - FEVER, UNSPECIFIED SNOMED Code(s): 256487484 (2) UTI (urinary tract infection) Current Visit: Yes Status: Acute Code(s): N39.0 - URINARY TRACT INFECTION, SITE NOT SPECIFIED SNOMED Code(s): 32557237 (3) Elevated liver enzymes Current Visit: Yes Status: Acute Code(s): R74.8 - ABNORMAL LEVELS OF OTHER SERUM ENZYMES SNOMED Code(s): 253843727 Plan: 1patient with the fever in this patient was in the hospital 2 days before admission evaluation mostly with generalized weakness patient did have a positive UA and no other obvious focus of infection at this point to be the likely etiology for this fever, patient did have a renal ultrasound concerning for mild hydronephrosis and debris's within the urinary bladder 2-CT abdominal pelvis did not show any acute abnormality urine has been finalized with E. coli x 2 sensitive to ceftriaxone 3-patient will be treated with Rocephin while in patient to finish therapy with oral Ceftin Dictation was produced using [employer] dictation software. please excuse any grammatical, word or spelling errors. Time with Patient: Less than 30
[2025-02-18] MEDS: THIAMINE 100 MG TAB PO SCH (17:44)
[2025-02-18] MEDS: MIDODRINE 5 MG TAB PO SCH (17:44)
[2025-02-19] MEDS: ZINC OXIDE PASTE (Z-GUARD) 1 APPLIC TOPICAL PRN (01:43)
[2025-02-19 06:53] VITALS: PULSE 71; RESP 18; TEMP 98.3
[2025-02-19] MEDS: MIDODRINE 5 MG TAB PO SCH (07:05)
[2025-02-19 07:50] LABS: Basophils # (A) 0.04 X 10*3/uL (0.00-0.10); Basophils % (A) 0.8 %; Eosinophils # (A) 0.21 X 10*3/uL (0.04-0.35); Eosinophils % (A) 4.1 %; HCT 43.3 % (37.2-46.3); HGB 14.3 g/dL (12.0-15.0); Immature Grans, Automated 0.40 %; Lymphocytes # (A) 0.95 X 10*3/uL (0.90-5.00); Lymphocytes % (A) 18.3 %; MCH 32.1 pg (27.0-32.0); MCHC 33.0 g/dL (32.0-37.0); MCV 97.3 FL (80.0-97.0); Monocytes # (A) 0.59 X 10*3/uL (0.20-1.00); Monocytes % (A) 11.4 %; NRBC Per 100 WBC 0 X 10*3/uL (0.00-0.01); Neutrophils # (A) 3.37 X 10*3/uL (1.80-7.70); Neutrophils % (A) 65.0 %; Platelet Count 210 X 10*3/uL (140-440); RBC 4.45 X 10*6/uL (4.10-5.20); RDW 14.0 % (11.5-14.5); WBC 5.18 X 10*3/uL (4.50-10.00)
[2025-02-19 08:24] LABS: Anion Gap 9.90 mmol/L (4.00-12.00); BUN/Creat Ratio 35.60 Ratio (12.00-20.00); Blood Urea Nitrogen 17.8 mg/dL (9.0-27.0); Calcium 9.5 mg/dL (8.7-10.3); Carbon Dioxide 19.1 mmol/L (21.6-31.8); Chloride 110 mmol/L (96-109); Glucose 129 mg/dL (70-110); Potassium 4.0 mmol/L (3.5-5.5); Sodium 139 mmol/L (135-145)
[2025-02-19 11:27] VITALS: BP 136/72
[2025-02-19] MEDS: FOLIC ACID 1 MG TAB PO SCH (11:32)
--- NOTE | 2025-02-19 15:34 | P.PN ---
Subjective Progress Note Date: 02/19/25 Principal diagnosis: Reason for follow-up is fever/UTI Patient is a 84-year-old female with a past medical history pertinent for dementia hypertension hyperlipidemia atrial fibrillation has been brought into the hospital from assisted living facility concerning for generalized weakness did have a fever positive concerning for symptomatic UTI. On today's evaluation that is 02/19/2025, the patient continues to be afebrile, the patient is on room air and breathing comfortably, the Pt denies having any chest pain or cough, the patient denies having any abdominal pain no vomiting or any diarrhea has been reported by the nursing staff. Patient ointment is 5.18 creatinine 0.5 Objective - Vital Signs Vital signs: Vital Signs Temp 98.3 F 02/19/25 06:51 Pulse 71 02/19/25 06:51 Resp 18 02/19/25 06:51 BP 136/72 02/19/25 11:26 Pulse Ox 92 L 02/19/25 06:51 FiO2 Intake & Output 02/18/25 02/19/25 02/19/25 18:59 06:59 18:59 Intake Total 240 Balance 240 Weight 68.039 kg Intake: Oral 240 Other: Voiding Method Diaper Diaper # Voids 4 1 # Bowel Movements 0 - Exam GENERAL DESCRIPTION: An elderly female up in the chair in no distress RESPIRATORY SYSTEM: Unlabored breathing , decreased breath sounds at bases HEART: S1 S2 regular rate and rhythm , ABDOMEN: Soft , no tenderness EXTREMITIES: No edema feet - Labs CBC & Chem 7: 02/19/25 05:01 02/19/25 05:01 Labs: Abnormal Lab Results - Last 24 Hours (Table) 02/19/25 02/19/25 Range/Units 05:01 05:01 MCV 97.3 H (80.0-97.0) FL MCH 32.1 H (27.0-32.0) pg Chloride 110 H (96-109) mmol/L Carbon Dioxide 19.1 L (21.6-31.8) mmol/L Creatinine 0.5 L (0.6-1.5) mg/dL BUN/Creatinine Ratio 35.60 H (12.00-20.00) Ratio Glucose 129 H (70-110) mg/dL Microbiology - Last 24 Hours (Table) 02/14/25 14:55 Urine Culture - Final Urine,Voided Escherichia coli Escherichia coli#2 Assessment and Plan (1) Fever Current Visit: Yes Status: Acute Code(s): R50.9 - FEVER, UNSPECIFIED SNOMED Code(s): 805389108 (2) UTI (urinary tract infection) Current Visit: Yes Status: Acute Code(s): N39.0 - URINARY TRACT INFECTION, SITE NOT SPECIFIED SNOMED Code(s): 29020391 (3) Elevated liver enzymes Current Visit: Yes Status: Acute Code(s): R74.8 - ABNORMAL LEVELS OF OTHER SERUM ENZYMES SNOMED Code(s): 876899829 Plan: 1patient with the fever in this patient was in the hospital 2 days before admission evaluation mostly with generalized weakness patient did have a positive UA and no other obvious focus of infection at this point to be the likely etiology for this fever, patient did have a renal ultrasound concerning for mild hydronephrosis and debris's within the urinary bladder 2-CT abdominal pelvis did not show any acute abnormality urine has been finalized with E. coli x 2 sensitive to ceftriaxone 3-patient received adequate IV Rocephin in the hospital and will finish therapy with Ceftin, close outpatient follow-up Dictation was produced using [employer] dictation software. please excuse any grammatical, word or spelling errors. Time with Patient: Less than 30
--- NOTE | 2025-02-22 05:25 | P.DS ---
Providers Date of admission: 02/14/25 16:04 Expected date of discharge: 02/19/25 Attending physician: Vishal Turner Consults: 02/16/25 12:04 Consult Physician Routine Consulting Provider: Juwan Borja Consult Reason/Comments: fever Do you want consulting provider notified?: Yes 02/16/25 19:43 Consult Physician Routine Consulting Provider: Matheus Vincent Consult Reason/Comments: abn renal us, poss hydronephrosis and UB debris Do you want consulting provider notified?: Yes, Notify in am 02/18/25 14:48 Consult Physician Urgent Consulting Provider: Masood Owens Consult Reason/Comments: parkinsons??, extensive tremor Do you want consulting provider notified?: Yes Primary care physician: Physician Nonstaff Hospital Course: Final diagnosis Generalized weakness with gait dysfunction possibly secondary to urinary tract infection Acute urinary tract infection, present on admission with E. coli Severe tremors, possibly Parkinson's History of dementia Moderate protein calorie malnutrition with a BMI of 25.7 Elevated transaminitis, trending down, recommend outpatient labs GI prophylaxis DVT prophylaxis Full code Discharge disposition Patient is being discharged in a stable condition with guarded prognosis to [facility] where she resides. Patient will follow-up with visiting physicians in the outpatient setting upon discharge. Patient is to continue with oral antibiotics on discharge as prescribed below. Patient to follow-up with neurology outpatient. Total time taken is greater than 35 minutes. Hospital course This is a 84-year-old female who was recently admitted with agitation and increased altered mentation with acute urinary tract infection and generalized weakness on admission. Patient evaluated by infectious disease and neurology as patient has significant shaking likely Parkinson's with history of dementia. Patient's urine cultures finalized with E. coli with sensitivities and will continue on Ceftin charged for short course. Patient evaluated by physical therapy and although weak doing well and will be returning to her [facility] where she resides. Home care can be arranged outpatient. Please refer to other consultation notes for further HPI. Currently no reports of chest pain, shortness of breath, or palpitations. Patient is afebrile. No reports of nausea or vomiting and patient is tolerating diet. Patient with not much of an appetite would recommend supplements and encouragement with small frequent meals. Patient will be going to [facility] where she resides today. Guarded prognosis and high risk for readmissions Physical exam: Gen: This is a 84-year-old female who is awake, alert oriented x 1-2, elderly appearing, thin built, much more awake and alert today HEENT: Head is atraumatic, normocephalic. Pupils equal, round. Sclerae is anicteric. NECK: Supple. No JVD. No lymphadenopathy. No thyromegaly. LUNGS: Diminished breath sounds bilaterally otherwise clear to auscultation. No wheezes or rhonchi. No intercostal retractions. HEART: S1, S2 are muffled ABDOMEN: Soft. Thin bowel sounds are present. No masses. No tenderness. EXTREMITIES: No pedal edema. No calf tenderness. NEUROLOGICAL: Patient is awake, alert and oriented x 12, baseline. Cranial nerves 2 through 12 are grossly intact. Please refer to medication reconciliation sheet for a list of medications. The impression and plan of care has been dictated by Khushbu Johnson, Nurse Practitioner as directed. Dr. Deniz MD I have performed a history and examination and MDM of this patient, discussed the same with the dictator, and agree with the dictator's assessment and plan as written ,documented as a scribe. Based on total visit time, I have performed more than 50% of the visit. Patient Condition at Discharge: Stable Plan - Discharge Summary Discharge Rx Participant: No New Discharge Prescriptions: New Acetaminophen Tab [Tylenol] 650 mg PO Q6HR PRN tab PRN Reason: Mild Pain Or Fever > 100.5 Thiamine [Vitamin B-1] 100 mg PO BID-W/MEALS #60 tab cefuroxime axetiL [Ceftin] 500 mg PO BID 5 Days #10 tab Folic Acid 1 mg PO DAILY@1200 #30 tab Continue Senna-Time 8.6mg 8.6 mg PO BID Multivitamins, Thera [Multivitamin (formulary)] 1 tab PO DAILY Ascorbic Acid [Vitamin C] 1,000 mg PO DAILY Primidone 125 mg PO TID Midodrine [ProAmatine] 5 mg PO TID Topiramate [Topamax] 50 mg PO HS Discharge Medication List Ascorbic Acid [Vitamin C] 1,000 mg PO DAILY 02/14/25 [History] Midodrine [ProAmatine] 5 mg PO TID 02/14/25 [History] Multivitamins, Thera [Multivitamin (formulary)] 1 tab PO DAILY 02/14/25 [History] Primidone 125 mg PO TID 02/14/25 [History] Senna-Time 8.6mg 8.6 mg PO BID 02/14/25 [History] Topiramate [Topamax] 50 mg PO HS 02/14/25 [History] Acetaminophen Tab [Tylenol] 650 mg PO Q6HR PRN tab 02/19/25 [Rx] Folic Acid 1 mg PO DAILY@1200 #30 tab 02/19/25 [Rx] Thiamine [Vitamin B-1] 100 mg PO BID-W/MEALS #60 tab 02/19/25 [Rx] cefuroxime axetiL [Ceftin] 500 mg PO BID 5 Days #10 tab 02/19/25 [Rx] Follow up Appointment(s)/Referral(s): [facility], [NON-STAFF] - 1 Week Juan Thompson MD [Medical Doctor] - 1-2 days Activity/Diet/Wound Care/Special Instructions: pt will return to [facility] assisted living. pt may need to use a wheel chair at times at the assisted living. Discharge/Stand Alone Forms: Adult Foster Residential List, Assisted Living Facilities, Help In The Home Discharge Disposition: TRANSFER TO SNF/ECF
== END 2025-02-19 15:49 | DRG 690 ==
LOC: EC 10:52 → 4SSUR 16:04 → OBSVTOIN 16:04 → 4SSUR 16:58
PROVIDERS: ADMIT Hospitalist; ATTEND Hospitalist
DX: N13.6 Pyonephrosis (principal); E44.0 Moderate protein-calorie malnutrition; L89.152 Pressure ulcer of sacral region, stage 2; G20.A1 Parkinson's disease without dyskinesia, without mention of fluctuations; G30.9 Alzheimer's disease, unspecified; I10 Essential (primary) hypertension; F02.B0 Dementia in other diseases classified elsewhere, moderate, without behavioral disturbance, psychotic disturbance, mood disturbance, and anxiety; Z68.25 Body mass index [BMI] 25.0-25.9, adult; B96.20 Unspecified Escherichia coli [E. coli] as the cause of diseases classified elsewhere; G25.0 Essential tremor; N20.0 Calculus of kidney; R26.9 Unspecified abnormalities of gait and mobility; R53.1 Weakness; E78.5 Hyperlipidemia, unspecified; Z79.899 Other long term (current) drug therapy; Z87.891 Personal history of nicotine dependence; Z90.710 Acquired absence of both cervix and uterus; Z98.51 Tubal ligation status
CPT/HCPCS: 36415; 70450; 71046; 74178; 76770; 80048; 80053; 81001; 83605; 83735; 84100; 84484; 85025; 85610; 85730; 87077; 87086; 87186; 93005; 96361; 96374; 99285